=== PATIENT | male | born 1940 | race Caucasian/White ===

== ENCOUNTER → 2016-10-18 | Outpatient (CLI) | payer MEDICARE ==
--- NOTE | 2016-10-18 11:26 | PN ---
DATE OF SERVICE: 10/18/2016 A 76-year-old gentleman who has been followed in the Sleep Center for treatment of obstructive sleep apnea-hypopnea syndrome. We discussed results of the sleep study with patient in detail. Patient has more close to severe obstructive sleep apnea-hypopnea syndrome with an apnea-hypopnea index 27.4, revealed very significant oxygen desaturation of 77.3%. Presently, patient is on treatment with BiPAP. I checked his BiPAP unit. Patient is using equipment 97% of the time with 90% of the time more than 4 hours. It was 25 out of 30 nights for more than 4 hours from the screen of the machine. Patient using full-face mask, leak from the mask up to 35 L. Apnea-hypopnea index reading for the month is 8.2 with relationship to central apneas 2.1. Patient indicated that he feels better with the machine, sleeps better and does not feel sleepiness during the day as he felt before. [place] Sleepiness Scale today is 4. Patient also has nasal pillow mask but because he has difficulties to breathe through the nose, he opened mouth with it. MEDICATIONS: Lipitor. During physical exam, patient in no distress. BP 119/59, HR 64, RR 16. Weight 213, temperature 97.6. Oxygen saturation at room air 98%. HEENT: PERRLA, EOMI. LUNGS: Clear. HEART: S1, S2 with some irregularities. ABDOMEN: Soft, nontender. EXTREMITIES: No edema. IMPRESSION: 1. Moderate, close to severe obstructive sleep apnea-hypopnea syndrome, significantly improved on treatment with BiPAP. Patient demonstrated great compliance with treatment benefiting with treatment. 2. 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 3. Status post surgical treatment for nasal septum deviation. 4. History of palpitations in the past. 5. History of episodes of fainting and dizziness. PLAN: 1. Continue treatment with BiPAP every night for the whole night. 2. Patient will try to use nasal pillow mask with nasal strips and chin strap. 3. ( ) to the nostrils to prevent any irritation. 4. Sleep hygiene with bed for at least 8 hours. 5. No driving if feeling any sleepiness. 6. Followup visit in 3 months. Thank you very much for allowing me to participate in the management of your patient. Sincerely, Nelson Reid MD, PhD, FAASM. Diplomat of [place] Board of Sleep Medicine, Sleep Medicine Board by [employer] Board of Medical Specialities [employer] Board of Internal Medicine Field Artillery Radar Operator of [facility] [place]
== END | disposition home or self-care (01) ==
LOC: SLEEP 10:06
PROVIDERS: ATTEND Internal Medicine
DX: G47.33 Obstructive sleep apnea (adult) (pediatric) (principal); Z79.899 Other long term (current) drug therapy

== ENCOUNTER → 2017-01-17 | Outpatient (CLI) | payer MEDICARE ==
--- NOTE | 2017-01-17 11:14 | PN ---
DATE OF SERVICE: 01/17/2017 A 76-year-old gentleman who has been followed in the Sleep Center for treatment of obstructive sleep apnea-hypopnea syndrome. Patient continued to use his BiPAP equipment practically every night, 26 out of 30 nights and 22 out of 30 nights he is using it more than 4 hours. BiPAP pressure is 16/12 cm of water. Patient brought his BiPAP unit, I checked the machine. No snoring while he is using machine. He has a leak from his full-face mask, reading from the machine showing extremely high numbers about 50 L/min and it is also the reason why patient sometimes wakes up from sleep because of significant leak. Apnea-hypopnea index reading for the last month is 7.7. Lane Sleepiness Scale today is 1. MEDICATIONS: Lipitor. During physical exam, patient in no distress. BP 105/61, HR 60, RR 16. Height 69. Weight 209. BMI 30.8. Temp 97.7. Oxygen saturation at room air 95%. Oropharynx, extremely low position of soft palate. NECK: Supple. No JVD, Thyroid is not palpable. LUNGS: Clear to percussion and to auscultation. Good air exchange. No wheezing or rhonchi. HEART: S1, S2 regular. No murmurs, gallops, or rubs. ABDOMEN: Soft and nontender. Bowel sounds are present. No organomegaly appreciated. Touch of the front ankle area was painful during physical exam. IMPRESSION: 1. Moderate, close to severe obstructive sleep apnea-hypopnea syndrome. Patient demonstrated acceptable compliance with treatment, benefiting from treatment. 2. 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 3. Status post surgical treatment for nasal septum deviation. 4. History of episodes of palpitations in the past. 5. History of dizziness and fainting in the past. Not any recent episodes. PLAN: 1. We will work on using possibly different size of a full-face mask and possibly different style of the mask reconsidering ( ). 2. Continue to use equipment every night for the whole night. 3. Sleep hygiene with regular time in bed for at least 8 hours. 4. Prescription for all necessary supplies. Thank you very much for allowing me to participate in the management your patient. Sincerely, Nelson Reid MD, PhD, FAASM Diplomat of [place] Board of Sleep Medicine, Sleep Medicine Board by [employer] Board of Medical Specialities Italian Board of Internal Medicine Maintenance Mechanic Helper of [facility] [place]
== END | disposition home or self-care (01) ==
LOC: SLEEP 10:04
PROVIDERS: ATTEND Internal Medicine
DX: G47.33 Obstructive sleep apnea (adult) (pediatric) (principal); Z99.89 Dependence on other enabling machines and devices; Z98.890 Other specified postprocedural states

== ENCOUNTER → 2017-04-25 | Outpatient (CLI) | payer MEDICARE ==
--- NOTE | 2017-04-25 13:24 | PN ---
DATE OF SERVICE: 04/25/2017 A 76-year-old gentleman who has been followed in the Sleep Center for treatment of obstructive sleep apnea-hypopnea syndrome in close to severe range. Patient is able to use CPAP equipment practically every night. No snoring with the machine. He feels better during the day. No episodes of palpitations or dizziness as he had before. I checked his BiPAP unit. BiPAP pressure is 16/12, ramp is 30 minutes. Usage is / nights for more than 4 hours. Leak is up to 30 L/min ( ) according to the machine reading which is borderline and less than it was before. Apnea- hypopnea index 4.9 which is significantly better than during the previous visit. [place] sleepiness scale is 0. MEDICATIONS: Lipitor. During physical exam, a 76-year-old gentleman without distress. BP 109/59, HR 60, RR 16, height 5, 11, weight 205.2. Temperature 98.5, oxygen saturation at room air 96%. OROPHARYNX: Extremely low position of soft palate. NECK: Supple, No JVD. Thyroid is not palpable. LUNGS: Clear to percussion and to auscultation. Good air exchange. No wheezing or rhonchi. HEART: S1, s2 regular. No murmurs, gallops or rubs. ABDOMEN: Soft and nontender. Bowel sounds are present. No organomegaly appreciated. EXTREMITIES: No clubbing or cyanosis. TEXTILE MACHINE MAINTENANCE MECHANIC: Awake, alert, and oriented x3. Cranial nerves 2 to 7 intact. There is no fasciculation or atrophy noted. No focal deficits observed. IMPRESSION: 1. Moderate close to severe obstructive sleep apnea-hypopnea syndrome, mostly on control with BiPAP at the pressure of 16/12 cm of water. Patient demonstrates acceptable compliance with treatment. Clinical Improvements, no episode of palpitation or dizziness during the day. No sleepiness during the day while on treatment with CPAP. 2. Status post surgical treatment for nasal septum deviation. 3. Some periodic limb movements have been documented during diagnostic sleep study. 4. History of palpitation in the past. 5. History of dizziness episodes in the past. PLAN: 1. Continue to use BiPAP equipment every night for the whole night. 2. Watching weight. 3. Sleep hygiene with regular time in bed for at least 8 hours. 4. No driving if feeling sleepiness. 5. Prescription for all necessary CPAP supplies. 6. Follow up visit in 10 months or earlier if patient has any problems. Thank you very much for allowing me to participate in the management of your patient. Sincerely, Nelson Reid MD, PhD, FAASM. Diplomat of [place] Board of Sleep Medicine, Sleep Medicine Board by [employer] Board of Medical Specialties [employer] of Internal Medicine Patient Navigator of [facility] [place] [facility]
== END ==
LOC: SLEEP 10:01
PROVIDERS: ATTEND Internal Medicine
DX: G47.33 Obstructive sleep apnea (adult) (pediatric) (principal); G47.61 Periodic limb movement disorder; Z98.890 Other specified postprocedural states; Z79.899 Other long term (current) drug therapy

== ENCOUNTER → 2018-01-23 | Outpatient (CLI) | payer MEDICARE ==
--- NOTE | 2018-01-23 11:53 | SFUN ---
SLEEP CENTER FOLLOW UP NOTE DATE OF SERVICE: 01/23/2018 This 77-year-old gentleman has been followed in sleep center for treatment of obstructive sleep apnea-hypopnea syndrome. The patient continued to use his BiPAP equipment practically every night. Pressure in the machine is a 16/12 cm of water. I checked BiPAP unit. Patient using full-face mask, Tanika . Sometimes he feels dryness in his mouth, although this is a full-face mask. I checked his BiPAP unit. It showed significant leak up to 71 L/minute for the last month, but for the last night no significant leak and patient changed his mask to the new one just last night. Apnea-hypopnea index reading for the last month only 5.6, which is in normal range. [place] Sleepiness Scale today is 1. The patient was diagnosed with atrial fibrillation several months ago. MEDICATIONS: Metoprolol, Coumadin, Lipitor. PHYSICAL EXAM: During physical exam, patient in no distress. VITAL SIGNS: BP 101/59, HR 52, RR 16, height 5 feet 9-1/2 inches, weight 213.4, BMI 31.0, temperature 97.8, oxygen saturation room air 96%. HEENT: PERRLA, EOMI. Oropharynx extremely low position of soft palate. NECK: Supple, no JVD. Thyroid is not palpable. LUNGS: Clear to percussion and to auscultation. Good air exchange. No wheezing or rhonchi. HEART: S1, S2 regular. No murmurs, gallops, or rubs. ABDOMEN: Obese. EXTREMITIES: No clubbing or cyanosis. RN TRAUMA: Awake, alert, and oriented X3. Cranial nerves 2 to 7 intact. There is no fasciculation or atrophy. noted. No focal deficits observed. IMPRESSION: 1. Obstructive sleep apnea-hypopnea syndrome on control with BiPAP at the pressure of 16/12 cm of water. Patient demonstrated good compliance with treatment benefitting from treatment. 2. Mild obesity, body mass index 31.0. 3. The patient was diagnosed with atrial fibrillation several months ago. Regular heartbeat by auscultation today. 4. Hyperlipidemia. 5. History of nasal septum deviation. PLAN: 1. Patient will continue to use BiPAP equipment every night for the whole night. 2. Losing weight. 3. I will increase humidity slightly from 5 to 6. 4. No driving if feeling sleepiness. Thank you very much for allowing me to participate in management of your patient. Sincerely, Nelson Reid MD, PhD, FAASM Diplomat of Gu[place] Board of Medical Specialties Guamanian Board of Internal Medicine Human Anatomy Teacher of [facility] [place] WAQAS / PALAK: [id number] /
== END | disposition home or self-care (01) ==
LOC: SLEEP 10:00
PROVIDERS: ATTEND Internal Medicine
DX: G47.33 Obstructive sleep apnea (adult) (pediatric) (principal); E66.9 Obesity, unspecified; I48.91 Unspecified atrial fibrillation; E78.5 Hyperlipidemia, unspecified; Z87.09 Personal history of other diseases of the respiratory system; Z68.31 Body mass index [BMI] 31.0-31.9, adult; Z79.01 Long term (current) use of anticoagulants; Z79.899 Other long term (current) drug therapy; Z99.89 Dependence on other enabling machines and devices

== ENCOUNTER → 2019-01-15 | Outpatient (CLI) | payer MEDICARE ==
--- NOTE | 2019-01-15 11:31 | SFUN ---
SLEEP CENTER FOLLOW UP NOTE DATE OF SERVICE: 01/15/2019 A 78-year-old gentleman who has been followed in the Sleep Center for treatment of obstructive sleep apnea-hypopnea syndrome. Patient continued to use his BiPAP equipment every night. Does not feel significant leak from the mask, but feels that his mouth is dry. [place] Sleepiness Scale is 4. During the previous visit, patient had significant leak from the mask 71 L/minute. I checked his BiPAP unit today, pressure is 16/12 cm of water. Usage is 27/30 nights and 25/30 nights more than 4 hours, average usage is 7.5 hours per night, which is great. Leak is only 19 L/minute which is totally acceptable. Apnea-hypopnea index for the last month 4.7, for the last night only 2.6, which is also totally normal. MEDICATIONS: Metoprolol, Coumadin, Lipitor. PHYSICAL EXAM: Patient in no distress. BP 104/64, HR 54, RR 18, height 5 foot and 9 inches, weight 218.8 pounds, body mass index 32.3. Patient increased his weight of 5 pounds. Temperature 98.2, oxygen saturation on room air 96%. OROPHARYNX: Extremely low soft palate. Neck Supple, no JVD. Thyroid is not palpable. LUNGS Clear to percussion and to auscultation. Good air exchange. No wheezing or rhonchi. HEART S1, S2 regular. No murmurs, gallops, or rubs. ABDOMEN Soft and nontender. Bowel sounds are present. No organomegaly appreciated. EXTREMITIES No clubbing or cyanosis. SOLDER CREAM MAKER Awake, alert, and oriented X3. Cranial nerves 2 to 7 intact. There is no fasciculation or atrophy. noted. No focal deficits observed. IMPRESSION: 1. Obstructive sleep apnea-hypopnea syndrome. Patient demonstrated great compliance. Normal aspiration, normal BiPAP benefitting from treatment. 2. Mild obesity. 3. History of atrial fibrillation, irregular heartbeats by auscultation today. 4. Hyperlipidemia. 5. History of nasal septum deviation. PLAN: 1. Patient will continue to use BiPAP equipment every night for the whole night patient. 2. I will teach patient how to adjust humidity in the machine to be sure that he does not have any dryness in his mouth. 3. Watching and losing weight. 4. Sleep hygiene with regular time in bed for at least 8 hours. 5. No driving if feeling sleepiness. 6. Will maintain all necessary prescription for all BiPAP supplies including mask, tube, filters. Thank you very much for allowing me to participate in the management of your patient. Sincerely, Nelson Reid MD, PhD, FAASM Diplomat of Faroese Board of Medical Specialties Faroese Board of Internal Medicine Weed Sprayer of [facility] [place] MMODL / AMERICON: [id number] /
== END | disposition home or self-care (01) ==
LOC: SLEEP 10:02
PROVIDERS: ATTEND Internal Medicine
DX: G47.33 Obstructive sleep apnea (adult) (pediatric) (principal); E66.9 Obesity, unspecified; I48.91 Unspecified atrial fibrillation; E78.5 Hyperlipidemia, unspecified; Z79.01 Long term (current) use of anticoagulants; Z79.899 Other long term (current) drug therapy; Z87.09 Personal history of other diseases of the respiratory system; Z99.89 Dependence on other enabling machines and devices; Z68.32 Body mass index [BMI] 32.0-32.9, adult

== ENCOUNTER → 2019-10-02 | Outpatient (CLI) | payer MEDICARE ==
--- NOTE | 2019-10-02 17:32 | CT ---
EXAMINATION TYPE: CT brain wo con DATE OF EXAM: 10/02/2019 COMPARISON: None INDICATION: Mild cognitive impairment DLP: 1047.1 mGycm, Automated exposure control for dose reduction was used. CONTRAST: None CT of the brain is performed utilizing 3 mm thick sections through the posterior fossa and 3 mm thick sections through the remaining calvarium. Study is performed within 24 hours of arrival to the hosp [facility]. No abnormal hyperdensity is present to suggest an acute intracranial hemorrhage. No mass lesion is evident. No acute infarcts are evident. Ventricles and sulci are appropriate for the patient age. Mild mucosal thickening is present through ethmoid air cells. Remaining paranasal sinuses and mastoid air cells are clear. IMPRESSIONS: 1. No acute intracranial process.
== END | disposition home or self-care (01) ==
LOC: RADCTMAIN 10:32
PROVIDERS: ATTEND Internal Medicine
DX: G31.84 Mild cognitive impairment of uncertain or unknown etiology (principal)
CPT/HCPCS: 70450

== ENCOUNTER → 2019-10-28 | Outpatient (CLI) | payer MEDICARE ==
--- NOTE | 2019-10-28 13:24 | XR ---
EXAMINATION TYPE: XR Hip Complete RT DATE OF EXAM: 10/28/2019 COMPARISON: NONE HISTORY: pain TECHNIQUE: 2 views submitted FINDINGS: There is no evidence of erosive change or acute fracture. Probability of the hips with hypertrophic change of the acetabulum. Correlate for sacroiliitis. IMPRESSION: 1. 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 Correlate for femoral acetabular i mpingement.
== END | disposition home or self-care (01) ==
LOC: RADXRMAIN 12:55
PROVIDERS: ATTEND Internal Medicine
DX: M12.851 Other specific arthropathies, not elsewhere classified, right hip (principal)
CPT/HCPCS: 73502

== ENCOUNTER → 2020-02-29 | Outpatient (CLI) | payer MEDICARE ==
--- NOTE | 2020-02-29 08:05 | US ---
EXAMINATION TYPE: US duplex aorta DATE OF EXAM: 02/29/2020 COMPARISON: NONE CLINICAL HISTORY: 79-year-old male I79.0 Aneurysm of aorta in diseases classified els. TECHNIQUE: Multiple sonographic images of the abdominal aorta are obtained. FINDINGS: EXAM MEASUREMENTS: Abdominal Aorta: Proximal: 2.4cm Mid: 1.8cm Distal: 1.5cm Bifurcation: Right: 1.0cm Left: 0.9cm No ultrasound evidence of AAA. IMPRESSION: No sonographic evidence for AAA.
== END | disposition home or self-care (01) ==
LOC: RADUSWWP 07:19
PROVIDERS: ATTEND Internal Medicine
DX: I79.0 Aneurysm of aorta in diseases classified elsewhere (principal)
CPT/HCPCS: 93979

== ENCOUNTER → 2020-07-14 | Outpatient (CLI) | payer MEDICARE ==
--- NOTE | 2020-07-14 16:41 | SFUN ---
SLEEP CENTER FOLLOW UP NOTE DATE OF SERVICE: 07/14/2020 A 79-year-old gentleman who has been followed in the Sleep Center for treatment of obstructive sleep apnea-hypopnea syndrome. The patient continues to use his CPAP equipment every night for the whole night, sometimes mask moving out to the site during the sleep. He may experience dryness in his mouth. [place] Sleepiness Scale today 9. I checked his BiPAP unit, pressure is 16/12 cm of water. Usage is 20/30 nights. Leak is 53 L/minute which is high, but at the same time average apnea-hypopnea index 4.9, which is acceptable. Humidity in the level of 2. MEDICATIONS: The patient did not bring the list of his medications and does not know the dosage. Metoprolol, Coumadin, Lipitor, metformin. PHYSICAL EXAM: Patient in no distress, BP 99/64, HR 62, RR 15, height 5 foot 9-1/4 inches, weight 197 pounds, BMI 28.9, temperature 97.9, oxygen saturation at room air 98%. OROPHARYNX: Extremely low position of soft palate. Mallampati 4. NECK: Supple, no JVD. Thyroid is not palpable. LUNGS: Clear to percussion and to auscultation. Good air exchange. No wheezing or rhonchi. HEART: S1, S2 regular. No murmurs, gallops, or rubs. ABDOMEN: Soft and nontender. Bowel sounds are present. No organomegaly appreciated. EXTREMITIES: No clubbing or cyanosis. SSIS DEVELOPER: Awake, alert, and oriented X3. Cranial nerves 2 to 7 intact. There is no fasciculation or atrophy. noted. No focal deficits observed. IMPRESSION: 1. Obstructive sleep apnea-hypopnea syndrome. Patient demonstrated borderline compliance with treatment, benefitting from treatment. 2. History of atrial fibrillation. 3. Hyperlipidemia. 4. Nasal septum deviation. PLAN: 1. Prescription for all necessary supplies including a full-face Simpliex medium-size mask, heated tube, filters. 2. Adjust humidity up to level of 4. 3. Prescription for chin strap. 4. Patient will continue to use PAP equipment every night for the whole night. 5. Sleep hygiene with regular time in bed for at least 7-1/2 to 8 hours. 6. Precautions related to driving. No driving if feeling sleepiness. 7. I will maintain all necessary prescription for PAP supplies including mask, tube, filters. 8. Watching weight. 9. No driving if feeling sleepiness. 10.Follow-up visit in 6 months or earlier if patient has any problems. Thank you very much for allowing me to participate in the management of your patient. Sincerely, Nelson Reid MD, PhD, FAASM Diplomat of Azerbaijani Board of Medical Specialties Azerbaij[place] Board of Internal Medicine Cracker Off of [facility] [place] MMODL / AMERICON: [id number] /
== END | disposition home or self-care (01) ==
LOC: SLEEP 11:17
PROVIDERS: ATTEND Internal Medicine
DX: G47.33 Obstructive sleep apnea (adult) (pediatric) (principal); E78.5 Hyperlipidemia, unspecified; J34.2 Deviated nasal septum; Z86.79 Personal history of other diseases of the circulatory system

== ENCOUNTER → 2020-08-17 | Outpatient (CLI) | payer MEDICARE ==
--- NOTE | 2020-08-17 17:14 | FL ---
EXAMINATION TYPE: FL barium enema DATE OF EXAM: 08/17/2020 COMPARISON: NONE Total fluoroscopy time: 1 minute 39 seconds. Total images: 60. HISTORY: 79-year-old male with positive fecal occult blood test. Colonoscopy on 03/23/2020 was limited by poor prep and on 06/08/2020 was limited by significant tortuosity. The right side of the colon was not adequately evaluated. K92.1, blood in stool. TECHNIQUE: A single contrast contrast barium enema study is performed. FINDINGS: Laundry Room Attendant view of the abdomen shows some residual stool within the left side of the colon. Nonobstructive bowel gas pattern. There is prominent tortuosity of the sigmoid colon and additional prominent tortuosity of the proxima l third transverse colon and ascending colon. This results in extensive bowel overlap limiting assessment. Assessment is further limited by reflux into small bowel loops across the ileocecal valve. No obvious sandra annular narrowing, obstructing or constricting lesion is identified. No significant diverticular disease is noted. IMPRESSION: 1. The right side of the colon remains limited due to prominent tortuosity and redundancy resulting i n excessive bowel overlap. Further limitation from reflux into small bowel loops across the ileocecal valve resulting in further overlap of opacified bowel. 2. No obvious suspicious obstructing or constricting lesion is identified. 3. Additional mild redundancy of the sigmoid colon.
== END | disposition home or self-care (01) ==
LOC: RADFLMAIN 08:50
PROVIDERS: ATTEND Surgery
DX: K63.89 Other specified diseases of intestine (principal); K92.1 Melena
CPT/HCPCS: 74270

== ENCOUNTER → 2020-09-06 | Outpatient (CLI) | payer MEDICARE ==
[2020-09-06 08:01] LABS: Basophils # (A) 0.1 k/uL (0-0.2); Basophils % (A) 1 %; Eosinophils # (A) 0.6 k/uL (0-0.7); Eosinophils % (A) 9 %; HCT 39.3 % (39.0-53.0); HGB 12.9 gm/dL (13.0-17.5); Lymphocytes # (A) 1.7 k/uL (1.0-4.8); Lymphocytes % (A) 26 %; MCH 29.2 pg (25.0-35.0); MCHC 32.9 g/dL (31.0-37.0); MCV 88.8 fL (80.0-100.0); Mean Platelet Volume 6.9; Monocytes # (A) 0.3 k/uL (0-1.0); Monocytes % (A) 5 %; Neutrophils # (A) 3.5 k/uL (1.3-7.7); Neutrophils % (A) 56 %; Platelet Count 209 k/uL (150-450); RBC 4.43 m/uL (4.30-5.90); RDW 13.2 % (11.5-15.5); WBC 6.3 k/uL (3.8-10.6)
[2020-09-06 11:25] LABS: African American GFR (CKD) 99.2 (60.0-200.0); Albumin 4.2 g/dL (3.80-4.90); Albumin/Globulin Ratio 2.21 (1.60-3.17); Anion Gap 5.7 mmol/L (4.00-12.00); BUN/Creat Ratio 16.25 Ratio (12.00-20.00); Calcium 9.2 mg/dL (8.7-10.3); Carbon Dioxide 30.3 mmol/L (21.6-31.8); Chol/HDL Ratio 3.39; Globulin 1.9 g/dL (1.6-3.3); Non-African American GFR(CKD) 85.6 (60.0-200.0); Potassium 4.2 mmol/L (3.5-5.5); Total Bilirubin 0.6 mg/dL (0.2-1.2); Total Protein 6.1 g/dL (6.2-8.2)
[2020-09-06 14:48] LABS: Hemoglobin A1C 5.9 % (4.0-6.0)
== END | disposition home or self-care (01) ==
LOC: LABWHC1 07:24
PROVIDERS: ATTEND Internal Medicine
DX: E78.5 Hyperlipidemia, unspecified (principal); I48.91 Unspecified atrial fibrillation; R73.03 Prediabetes
CPT/HCPCS: 36415; 80053; 80061; 82550; 83036; 85025

== ENCOUNTER → 2021-01-12 | Outpatient (CLI) | payer MEDICARE, OTHER ==
--- NOTE | 2021-01-12 15:58 | SFUN ---
SLEEP CENTER FOLLOW UP NOTE DATE OF SERVICE: 01/12/2021. This 80-year-old gentleman has been followed in Sleep Center for treatment of obstructive sleep apnea-hypopnea syndrome. Patient continued to use his BiPAP equipment every night for the whole night. According to his , he does not snore. He sleeps well with the machine. [place] Sleepiness Scale was 2. He receives all his supplies in time and changing filters in his machine according to him. I checked BiPAP unit. BiPAP pressure of 16/12 cm of water, usage 29 out of 30 nights for more than 4 hours, average usage 8.5 hours per night. Leak was 20 L/minute, which is borderline. Apnea-hypopnea index 6.8, which includes central apnea-hypopnea index 1.8. MEDICATIONS: Warfarin 2 mg as directed, metoprolol 25 mg once a day, tamsulosin 0.4 mg once a day, atorvastatin 20 mg once a day, metformin 500 mg twice a day. PHYSICAL EXAMINATION: GENERAL: Patient in no distress. VITAL SIGNS: BP 98/56, HR 67, RR 12, height 5 feet 10 inches, weight 200.0, body mass index 28.6, temperature 97.3, oxygen saturation at room air 97%. HEENT: PERRLA, EOMI. Oropharynx extremely low position of soft palate. Mallampati 4. NECK: Supple, no JVD. Thyroid is not palpable. LUNGS: Clear to percussion and to auscultation. Good air exchange. No wheezing or rhonchi. HEART: S1, S2 regular. No murmurs, gallops, or rubs. ABDOMEN: Soft and nontender. Bowel sounds are present. No organomegaly appreciated. EXTREMITIES: No clubbing or cyanosis. FILEMAKER DEVELOPER: Awake, alert, and oriented X3. Cranial nerves 2 to 7 intact. There is no fasciculation or atrophy. noted. No focal deficits observed. IMPRESSION: 1. Obstructive sleep apnea-hypopnea syndrome with some central events. The patient demonstrated 100% compliance with treatment, benefitting from treatment. Apnea- hypopnea index slightly increased to 6.8, comparing with previous visit when it was 4.9. 2. History of atrial fibrillation. 3. Hyperlipidemia. 4. History of nasal septum deviation. PLAN: 1. Patient will continue to use PAP equipment every night for the whole night. 2. Sleep hygiene with regular time in bed for at least 7-1/2 to 8 hours. 3. Precautions related to driving. No driving if feeling sleepiness. 4. I will maintain all necessary prescription for PAP supplies including mask, tube, filters. 5. Watching weight. 6. Follow-up visit in 6 months or earlier if patient has any problems. Thank you very much for allowing me to participate in management of your patient. Sincerely, Nelson Reid MD, PhD, FAASM Diplomat of [place] Board of Medical Specialties [place] Board of Internal Medicine Casino Cashier Manager of [facility] [place] MMODL / IJN: [id number] /
== END ==
LOC: SLEEP 11:31
PROVIDERS: ATTEND Internal Medicine
DX: G47.33 Obstructive sleep apnea (adult) (pediatric) (principal); I48.91 Unspecified atrial fibrillation; E78.5 Hyperlipidemia, unspecified; J34.2 Deviated nasal septum

== ENCOUNTER → 2021-01-20 | Outpatient (CLI) | payer MEDICARE, OTHER ==
[2021-01-20 11:44] LABS: Basophils # (A) 0.07 X 10*3/uL (0.00-0.10); Basophils % (A) 1.2 %; Eosinophils # (A) 0.42 X 10*3/uL (0.04-0.35); Eosinophils % (A) 7.3 %; HCT 38.8 % (39.6-50.0); HGB 12.1 g/dL (13.0-17.0); Lymphocytes # (A) 1.63 X 10*3/uL (0.90-5.00); Lymphocytes % (A) 28.3 %; MCH 28.1 pg (27.0-32.0); MCHC 31.2 g/dL (32.0-37.0); Mean Platelet Volume 10.4 fL (9.5-12.2); Monocytes # (A) 0.53 X 10*3/uL (0.20-1.00); Monocytes % (A) 9.2 %; Neutrophils # (A) 3.09 X 10*3/uL (1.80-7.70); Neutrophils % (A) 53.8 %; Platelet Count 230 X 10*3/uL (140-440); RBC 4.31 X 10*6/uL (4.40-5.60); WBC 5.75 X 10*3/uL (4.50-10.00)
[2021-01-20 12:04] LABS: African American GFR (CKD) 104.8 (60.0-200.0); Albumin/Globulin Ratio 2.22 (1.60-3.17); Anion Gap 7.9 mmol/L (4.00-12.00); Calcium 8.8 mg/dL (8.7-10.3); Carbon Dioxide 29.1 mmol/L (21.6-31.8); Globulin 1.8 g/dL (1.6-3.3); Non-African American GFR(CKD) 90.4 (60.0-200.0); Potassium 4.3 mmol/L (3.5-5.5); Total Bilirubin 0.5 mg/dL (0.2-1.2); Total Protein 5.8 g/dL (6.2-8.2)
== END | disposition home or self-care (01) ==
LOC: LABWHC1 07:16
PROVIDERS: ATTEND Internal Medicine
DX: N40.0 Benign prostatic hyperplasia without lower urinary tract symptoms (principal); E78.5 Hyperlipidemia, unspecified; I48.20 Chronic atrial fibrillation, unspecified; E11.9 Type 2 diabetes mellitus without complications
CPT/HCPCS: 36415; 80053; 84153; 84443; 85025

== ENCOUNTER → 2021-06-07 | Outpatient (CLI) | payer MEDICARE, OTHER ==
--- NOTE | 2021-06-07 21:07 | SFUN ---
SLEEP CENTER FOLLOW UP NOTE DATE OF SERVICE: 06/07/2021 This 80-year-old gentleman has been followed in Sleep Center for treatment of obstructive sleep apnea-hypopnea syndrome. The patient successfully continues to use his CPAP equipment every night for the whole night. [place] Sleepiness Scale today is only 1, which is totally normal. I checked his BiPAP unit. Pressure is 16/12 cm of water. Usage is 30/30 nights and 29/30 nights for more than 4 hours, average 7.7 hours per night. Leak is 25 L/minute, which is borderline. Apnea-hypopnea index is slightly increased at 7.2. One leg of the patient's cover for the air filter is broken. MEDICATIONS: 1. Metformin 500 mg once a day. 2. Tamsulosin 0.4 mg once a day. 3. Metoprolol 25 mg once a day. 4. Atorvastatin 20 mg once a day. 5. Warfarin 2 mg once a day. PHYSICAL EXAMINATION: GENERAL: Pleasant patient in no distress. VITAL SIGNS: BP 104/65, HR 72, RR 15, height 5 feet 10 inches, weight 192.2, temperature 97.2, oxygen saturation at room air 96%. Body mass index 27.5. HEENT: PERRLA, EOMI, evaluation of oropharynx showed tongue protrudes midline. Extremely low position of soft palate; Mallampati IV. NECK: Supple, no JVD. Thyroid is not palpable. LUNGS: Clear to percussion and to auscultation. Good air exchange. No wheezing or rhonchi. HEART: S1, S2 regular. No murmurs, gallops, or rubs. ABDOMEN: Soft and nontender. Bowel sounds are present. No organomegaly appreciated. EXTREMITIES: No clubbing or cyanosis. LEAD PERSON: Awake, alert, and oriented X3. Cranial nerves 2 to 7 intact. There is no fasciculation or atrophy. noted. No focal deficits observed. IMPRESSION: 1. Obstructive sleep apnea-hypopnea syndrome with some central events. The patient demonstrated practically 100% compliance with treatment, benefitting from treatment. Apnea-hypopnea index is slightly increased at 7.2. 2. History of atrial fibrillation. 3. Hyperlipidemia. 4. History of nasal septum deviation. PLAN: 1. Prescription to replace air filter cover. 2. I changed regimen in BiPAP unit to automatic with maximal inspiratory pressure 18 and minimal expiratory pressure 6. 3. Patient will continue to use PAP equipment every night for the whole night. 4. Sleep hygiene with regular time in bed for at least 7-1/2 to 8 hours. 5. Precautions related to driving. No driving if feeling sleepiness. 6. I will maintain all necessary prescription for PAP supplies including mask, tube, filters. 7. Watching weight. 8. Follow-up visit in 6 months or earlier if patient has any problems. Thank you very much for allowing me to participate in the management of your patient. Sincerely, Nelson Reid MD, PhD, FAASM Diplomat of [place] [employer] Sleep Medicine Board of [place] [employer] Web Developer of [facility] [place] [employer] / [employer]: [id number] /
== END ==
LOC: SLEEP 13:02
PROVIDERS: ATTEND Internal Medicine
DX: G47.33 Obstructive sleep apnea (adult) (pediatric) (principal); E78.5 Hyperlipidemia, unspecified; J34.2 Deviated nasal septum; I48.91 Unspecified atrial fibrillation; Z99.89 Dependence on other enabling machines and devices; Z79.01 Long term (current) use of anticoagulants

== ENCOUNTER → 2021-06-27 | Outpatient (CLI) | payer MEDICARE, OTHER ==
--- NOTE | 2021-06-27 12:56 | XR ---
EXAMINATION TYPE: XR chest 2V DATE OF EXAM: 06/27/2021 COMPARISON: 05/15/2016 TECHNIQUE: PA and lateral views submitted. HISTORY: Back pain FINDINGS: The lungs are clear and there is no pneumothorax, pleural effusion, or focal pneumonia. Heart is pr ominent there is hyperinflation. Interstitial pattern with cardiomegaly. Arthropathy of the shoulders . No consolidation. Hypertrophic and degenerative change of the spine. IMPRESSION: 1. Cardiomegaly correlate for interstitial pneumonitis..
== END | disposition home or self-care (01) ==
LOC: RADXRMAIN 12:13
PROVIDERS: ATTEND Internal Medicine
DX: J98.4 Other disorders of lung (principal); I51.7 Cardiomegaly
CPT/HCPCS: 71046

== ENCOUNTER → 2021-06-30 | Outpatient (CLI) | payer MEDICARE ==
[2021-07-01 07:17] LABS: Anti-DNA, DS unit <1.0 IU/mL; Centromere Antibody <0.2 AI; Centromere Antibody Interp NEGATIVE (NEGATIVE); DNA Double-Stranded NEGATIVE (NEGATIVE); Scleroderma SC-70 Ab <0.2 AI
[2021-07-01 19:37] LABS: Hepatitis C IgG Antibody Nonreactive (Nonreactive)
[2021-07-01 19:38] LABS: Hepatitis A Antibody IgM Nonreactive (Nonreactive); Hepatitis B Core IgM Nonreactive (Nonreactive); Hepatitis B Surface Antigen Non-Reactive (Nonreactive)
== END | disposition home or self-care (01) ==
LOC: LABWHC1 11:34
PROVIDERS: ATTEND Internal Medicine
DX: R94.5 Abnormal results of liver function studies (principal)
CPT/HCPCS: 36415; 80074; 82977; 83516; 86038; 86225; 86235

== ENCOUNTER → 2021-07-06 | Outpatient (CLI) | payer MEDICARE ==
--- NOTE | 2021-07-06 11:01 | CT ---
EXAMINATION TYPE: CT chest wo/w con DATE OF EXAM: 07/06/2021 COMPARISON: None HISTORY: CHF CT DLP: 664.2 mGycm Automated exposure control for dose reduction was used. CONTRAST: CT scan of the chest is performed without and with IV Contrast, patient injected with 100 mL of Isovu e 300. FINDINGS: LUNGS: Suspicious 2.3 x 2.0 cm pleural-based mass left upper lobe. I cannot exclude malignancy. Consi adri PET/CT or tissue diagnosis. Other also couple of small sub-3 mm pulmonary nodules left lower lobe . The right lung is clear. Biapical scarring. Mild hyperinflation. No evidence for congestive failure . MEDIASTINUM: There are no greater than 1 cm hilar or mediastinal lymph nodes. No pericardial effusi on is seen. Thoracic aorta is of normal caliber. The heart is mildly enlarged. UPPER ABDOMEN: 1.5 cm nodule left adrenal gland. Mild thickening of the right adrenal gland. Approxim ately 5 lesions within the liver compatible with metastatic disease measuring up to 3 cm in size. The entirety of the liver is not imaged. Renal cortical cysts. OTHER: Heterogeneity of the osseous structures suspicious for metastatic disease. IMPRESSION: 1. Left upper lobe pleural-based mass is suspicious for malignancy. Correlate with PET/CT. 2. Findings compatible with metastatic disease to the liver as well as the visualized thoracic segmen ts. Left adrenal metastatic difficult to exclude.
== END | disposition home or self-care (01) ==
LOC: RADCTMAIN 09:54
PROVIDERS: ATTEND Internal Medicine
DX: I50.9 Heart failure, unspecified (principal); R91.8 Other nonspecific abnormal finding of lung field
CPT/HCPCS: 71270; Q9967

== ENCOUNTER → 2021-07-08 | Outpatient (CLI) | payer MEDICARE ==
[2021-07-08 08:56] LABS: African American GFR (CKD) >90 (>60 ml/min/1.73 sqM); Blood Urea Nitrogen 24 mg/dL (9-20); Non-African American GFR(CKD) 84 (>60 ml/min/1.73 sqM)
--- NOTE | 2021-07-08 10:41 | CT ---
EXAMINATION TYPE: CT abdomen pelvis wo/w con DATE OF EXAM: 07/08/2021 COMPARISON: None HISTORY: Abnormal weight loss CT DLP: 1852 mGycm CONTRAST: CT scan of the abdomen and pelvis is performed with Oral Contrast and without and with IV Contrast, p atient injected with 100 ml mL of Isovue 300. FINDINGS: LUNG BASES-: Possible nodule noted on the first image of the lung windows measuring 1.[address] of the chest is recommended. LIVER/GB: No calcified gallstones. Approximately 4 hepatic lesions are noted suspicious for metasta tic disease. A lesion noted within the anterior segment right hepatic lobe measures 2.6 cm. An additi onal lesion adjacent to the falciform ligament measures 2.8 cm and 1.4 cm. Peripheral lesion near the dome of the liver measures 1.6 cm. Biliary tree is of normal caliber. PANCREAS: No inflammation. No distinct mass. SPLEEN: No splenic enlargement. No lesion seen. ADRENALS: No nodule. No thickening. KIDNEYS/BLADDER: No hydronephrosis. No nephrolithiasis. No distinct renal mass. Urinary bladder g rossly unremarkable. BOWEL: Normal appendix. Small suspicious area of mural thickening is noted within adjacent lymph node or 2 involving the mid ascending colon. Direct visualization is recommended to exclude neoplasm. GENITAL ORGANS: No gross abnormality. LYMPH NODES: No greater than 1cm abdominal or pelvic lymph nodes are appreciated. AORTA: No significant abnormality. OSSEOUS STRUCTURES: Suspect bony metastatic disease. OTHER: No significant additional abnormality is seen. IMPRESSION: 1. Small suspicious area of mural thickening is noted within adjacent lymph node or 2 involving the m id ascending colon. Direct visualization is recommended to exclude neoplasm. 2. Metastatic disease to the liver. 3. Areas of abnormal bony lucency suspicious for metastatic disease to the distal thoracic spine lumb ar spine, sacrum, pelvis and proximal femora. 4. Possible nodule noted on the first image of the lung windows measuring 1.[address] of the chest is recommended.
== END | disposition home or self-care (01) ==
LOC: RADCTMAIN 07:57
PROVIDERS: ATTEND Internal Medicine
DX: C78.7 Secondary malignant neoplasm of liver and intrahepatic bile duct (principal); M89.8X0 Other specified disorders of bone, multiple sites
CPT/HCPCS: 82565; 84520; 74178; 36415; Q9967

== ENCOUNTER 2021-07-12 15:58 | Inpatient (IN) | payer MEDICARE ==
[2021-07-12] MEDS ORDERED: SODIUM CHLORIDE 0.9% 500 ML 500 ML IV STA (16:22)
--- NOTE | 2021-07-12 16:25 | ED ---
General Adult HPI - General Chief complaint: Weakness Stated complaint: Pt has cancer and his vitals are abnormal per PCP Time Seen by Provider: 07/12/21 16:07 Source: patient, family, RN notes reviewed, old records reviewed Mode of arrival: wheelchair Limitations: no limitations - History of Present Illness Initial comments: 80-year-old male presenting from the oncologist office for evaluation of hypoxia, hypotension. Patient has been recently diagnosed with metastatic CA of uncertain origin. The patient was at the office today, noted to be in the 70s blood pressure, with a very low oxygen saturation. He had CT abdomen showing metastases to the liver and bone. Unlikely primary lung cancer. His had decreased appetite, generalized weakness, weight loss and increased dyspnea over the past several weeks. - Related Data Home Medications Medication Instructions Recorded Confirmed Baclofen [Lioresal] 10 mg PO TID 07/12/21 07/12/21 Ferrous Sulfate [Feosol] 325 mg PO DAILY 07/12/21 07/12/21 Furosemide [Lasix] 40 mg PO DAILY 07/12/21 07/12/21 Metoprolol Succinate [Toprol XL] 25 mg PO DAILY 07/12/21 07/12/21 Tamsulosin [Flomax] 0.4 mg PO BID 07/12/21 07/12/21 Warfarin [Coumadin] 2 mg PO SUTUTHSA 07/12/21 07/12/21 Warfarin [Coumadin] 5 mg PO DAILY 07/12/21 07/12/21 Allergies Allergy/AdvReac Type Severity Reaction Status Date / Time No Known Allergies Allergy Verified 07/12/21 16:52 Review of Systems ROS Statement: Those systems with pertinent positive or pertinent negative responses have been documented in the HPI. ROS Other: All systems not noted in ROS Statement are negative. Past Medical History Past Medical History: Atrial Fibrillation Additional Past Medical History / Comment(s): CA, Lung, Liver and bone. History of Any Multi-Drug Resistant Organisms: None Reported Past Surgical History: No Surgical Hx Reported Past Psychological History: No Psychological Hx Reported Smoking Status: Never smoker Past Alcohol Use History: None Reported Past Drug Use History: None Reported General Exam Limitations: no limitations General appearance: alert, in distress Head exam: Present: atraumatic, normocephalic Eye exam: Present: normal appearance, PERRL ENT exam: Present: mucous membranes dry Respiratory exam: Present: respiratory distress, rhonchi, decreased breath sounds Cardiovascular Exam: Present: normal rhythm, tachycardia GI/Abdominal exam: Present: soft. Absent: distended, tenderness, guarding Extremities exam: Present: normal inspection, normal capillary refill Neurological exam: Present: alert, oriented X3, CN II-XII intact. Absent: motor sensory deficit Psychiatric exam: Present: normal affect, normal mood Skin exam: Present: warm, dry Course Vital Signs 07/12/21 16:01 Temperature 97.4 F L Pulse Rate 90 Respiratory 22 Rate Blood Pressure 86/53 O2 Sat by Pulse 90 L Oximetry EKG Findings - EKG Comments: EKG Findings:: EKG: Normal sinus rhythm, no ST segment elevation, rate of 95, IL interval 148, QRS duration 86, QTC 469 Medical Decision Making - Medical Decision Making 72-year-old male with recent diagnosis of lung mass, and concern for metastatic disease presenting with generalized weakness, fatigue, and increased dyspnea. He is a poor appetite. He was sent in by his oncologist. I did perform chest x-ray which was negative for focal pneumonia. He has CTA negative for pulmonary embolism but is showing a lung mass with metastatic disease. He has a leukocytosis his hemoglobin is 9.7. He has a supratherapeutic INR at 7.2. He is given vitamin K in the emergency department. Did have a mild lactic acidosis of 2.9. He started on IV hydration and empiric IV antibiotics. I did discuss case with Dr. Garcia who will admit both pulmonology and oncology on consult. - Lab Data Result diagrams: 07/12/21 16:29 07/12/21 16:29 Lab Results 07/12/21 07/12/21 07/12/21 Range/Units 16:29 16:29 16:29 WBC 14.4 H (3.8-10.6) k/uL RBC 3.21 L (4.30-5.90) m/uL Hgb 9.7 L (13.0-17.5) gm/dL Hct 27.6 L (39.0-53.0) % MCV 86.0 (80.0-100.0) fL MCH 30.2 (25.0-35.0) pg MCHC 35.1 (31.0-37.0) g/dL RDW 17.4 H (11.5-15.5) % Plt Count 325 (150-450) k/uL MPV 7.4 Neutrophils % (Manual) 85 % Band Neuts % (Manual) 1 % Lymphocytes % (Manual) 10 % Monocytes % (Manual) 4 % Basophils % (Manual) 1 % Metamyelocytes % 1 % Neutrophils # (Manual) 12.30 H (1.3-7.7) k/uL Lymphocytes # (Manual) 1.44 (1.0-4.8) k/uL Monocytes # (Manual) 0.58 (0-1.0) k/uL Basophils # (Manual) 0.14 (0-0.2) k/uL Metamyelocytes # (Man) 0.14 H (0) k/uL Nucleated RBCs 1 H (0-0) /100 WBC Manual Slide Review Performed Polychromasia Present Poikilocytosis Slight Poikilocytosis (manual Present Anisocytosis Slight PT (9.0-12.0) sec INR (<1.2) APTT (22.0-30.0) sec Sodium 136 L (137-145) mmol/L Potassium 4.5 (3.5-5.1) mmol/L Chloride 103 (98-107) mmol/L Carbon Dioxide 21 L (22-30) mmol/L Anion Gap 12 mmol/L BUN 48 H (9-20) mg/dL Creatinine 0.97 (0.66-1.25) mg/dL Est GFR (CKD-EPI)AfAm 87 (>60 ml/min/1.73 sqM) Est GFR (CKD-EPI)NonAf 75 (>60 ml/min/1.73 sqM) Glucose 182 H (74-99) mg/dL Lactic Ac Sepsis Rflx Plasma Lactic Acid Chao 2.9 H* (0.7-2.0) mmol/L Calcium 9.2 (8.4-10.2) mg/dL Magnesium 1.9 (1.6-2.3) mg/dL Total Bilirubin 1.0 (0.2-1.3) mg/dL AST 44 (17-59) U/L ALT 20 (4-49) U/L Alkaline Phosphatase 276 H (38-126) U/L Troponin I (0.000-0.034) ng/mL NT-Pro-B Natriuret Pep pg/mL Total Protein 6.2 L (6.3-8.2) g/dL Albumin 3.6 (3.5-5.0) g/dL 07/12/21 07/12/21 07/12/21 Range/Units 16:29 16:29 16:56 WBC (3.8-10.6) k/uL RBC (4.30-5.90) m/uL Hgb (13.0-17.5) gm/dL Hct (39.0-53.0) % MCV (80.0-100.0) fL MCH (25.0-35.0) pg MCHC (31.0-37.0) g/dL RDW (11.5-15.5) % Plt Count (150-450) k/uL MPV Neutrophils % (Manual) % Band Neuts % (Manual) % Lymphocytes % (Manual) % Monocytes % (Manual) % Basophils % (Manual) % Metamyelocytes % % Neutrophils # (Manual) (1.3-7.7) k/uL Lymphocytes # (Manual) (1.0-4.8) k/uL Monocytes # (Manual) (0-1.0) k/uL Basophils # (Manual) (0-0.2) k/uL Metamyelocytes # (Man) (0) k/uL Nucleated RBCs (0-0) /100 WBC Manual Slide Review Polychromasia Poikilocytosis Poikilocytosis (manual Anisocytosis PT (9.0-12.0) sec INR (<1.2) APTT (22.0-30.0) sec Sodium (137-145) mmol/L Potassium (3.5-5.1) mmol/L Chloride (98-107) mmol/L Carbon Dioxide (22-30) mmol/L Anion Gap mmol/L BUN (9-20) mg/dL Creatinine (0.66-1.25) mg/dL Est GFR (CKD-EPI)AfAm (>60 ml/min/1.73 sqM) Est GFR (CKD-EPI)NonAf (>60 ml/min/1.73 sqM) Glucose (74-99) mg/dL Lactic Ac Sepsis Rflx Y Plasma Lactic Acid Chao (0.7-2.0) mmol/L Calcium (8.4-10.2) mg/dL Magnesium (1.6-2.3) mg/dL Total Bilirubin (0.2-1.3) mg/dL AST (17-59) U/L ALT (4-49) U/L Alkaline Phosphatase (38-126) U/L Troponin I 0.034 (0.000-0.034) ng/mL NT-Pro-B Natriuret Pep 1600 pg/mL Total Protein (6.3-8.2) g/dL Albumin (3.5-5.0) g/dL 07/12/21 Range/Units 17:40 WBC (3.8-10.6) k/uL RBC (4.30-5.90) m/uL Hgb (13.0-17.5) gm/dL Hct (39.0-53.0) % MCV (80.0-100.0) fL MCH (25.0-35.0) pg MCHC (31.0-37.0) g/dL RDW (11.5-15.5) % Plt Count (150-450) k/uL MPV Neutrophils % (Manual) % Band Neuts % (Manual) % Lymphocytes % (Manual) % Monocytes % (Manual) % Basophils % (Manual) % Metamyelocytes % % Neutrophils # (Manual) (1.3-7.7) k/uL Lymphocytes # (Manual) (1.0-4.8) k/uL Monocytes # (Manual) (0-1.0) k/uL Basophils # (Manual) (0-0.2) k/uL Metamyelocytes # (Man) (0) k/uL Nucleated RBCs (0-0) /100 WBC Manual Slide Review Polychromasia Poikilocytosis Poikilocytosis (manual Anisocytosis PT 70.3 H (9.0-12.0) sec INR 7.2 H* (<1.2) APTT 46.3 H (22.0-30.0) sec Sodium (137-145) mmol/L Potassium (3.5-5.1) mmol/L Chloride (98-107) mmol/L Carbon Dioxide (22-30) mmol/L Anion Gap mmol/L BUN (9-20) mg/dL Creatinine (0.66-1.25) mg/dL Est GFR (CKD-EPI)AfAm (>60 ml/min/1.73 sqM) Est GFR (CKD-EPI)NonAf (>60 ml/min/1.73 sqM) Glucose (74-99) mg/dL Lactic Ac Sepsis Rflx Plasma Lactic Acid Chao (0.7-2.0) mmol/L Calcium (8.4-10.2) mg/dL Magnesium (1.6-2.3) mg/dL Total Bilirubin (0.2-1.3) mg/dL AST (17-59) U/L ALT (4-49) U/L Alkaline Phosphatase (38-126) U/L Troponin I (0.000-0.034) ng/mL NT-Pro-B Natriuret Pep pg/mL Total Protein (6.3-8.2) g/dL Albumin (3.5-5.0) g/dL Critical Care Time Critical Care Time: Yes Total Critical Care Time: 35 Disposition Clinical Impression: Dehydration, Leukocytosis, Supratherapeutic INR, Lung mass Disposition: ADMITTED IP TO THIS [facility] Condition: Serious Is patient prescribed a controlled substance at d/c from ED?: No Referrals: Dominique Garcia MD [Primary Care Provider] - 1-2 days Decision to Admit Reason: Admit from EC Decision Date: 07/12/21 Decision Time: 19:01
[2021-07-12 16:54] LABS: Albumin 3.6 g/dL (3.5-5.0); Calcium 9.2 mg/dL (8.4-10.2); Magnesium 1.9 mg/dL (1.6-2.3); Potassium 4.5 mmol/L (3.5-5.1); Total Protein 6.2 g/dL (6.3-8.2)
--- NOTE | 2021-07-12 16:54 | XR ---
EXAMINATION TYPE: XR chest 1V portable DATE OF EXAM: 07/12/2021 COMPARISON: 06/27/2021 HISTORY: Difficulty breathing TECHNIQUE: Single view FINDINGS: There is no heart failure nor confluent pneumonic infiltrate. There are chest leads. There are no hilar masses. Costophrenic angles are clear. Heart size is normal. IMPRESSION: No active cardiopulmonary disease. No change.
[2021-07-12 17:13] LABS: Anisocytosis Slight; HCT 27.6 % (39.0-53.0); HGB 9.7 gm/dL (13.0-17.5); MCH 30.2 pg (25.0-35.0); MCHC 35.1 g/dL (31.0-37.0); Mean Platelet Volume 7.4; Platelet Count 325 k/uL (150-450); Poikilocytosis Slight; RBC 3.21 m/uL (4.30-5.90); RDW 17.4 % (11.5-15.5)
--- NOTE | 2021-07-12 17:43 | CT ---
EXAMINATION TYPE: CT angio chest DATE OF EXAM: 07/12/2021 COMPARISON: None HISTORY: difficulty breathing, lung cancer CT DLP: 340.6 mGycm Automated exposure control for dose reduction was used. CONTRAST: Performed with IV Contrast, patient injected with 100 mL of Isovue 370. There are 3-D post processed images. There is 2.5 cm irregular infiltrate in the left upper lobe adjacent to the chest wall and near the m ajor fissure. Margins are somewhat spiculated. There is no pleural effusion. Heart is top normal in size. There is no pericardial effusion. There is no mediastinal adenopathy. There is contrast opacification of the pulmonary arteries. There are no filling defects. Thoracic aorta is intact. There is no evidence of aneurysm or dissection. Asc ending aorta measures 3.9 cm. There are osteosclerotic and osteolytic changes in the thoracic spine. There is 1.5 cm nodular area involving left adrenal gland. There are hypodensities in the liver sugge stive of metastatic disease. IMPRESSION: No evidence of pulmonary embolism. Left upper lobe mass. (liver hypodensities and bony changes in the spine consistent with metastatic disease.
[2021-07-12 17:56] LABS: Band Neutrophils % 1 %; Basophils # (M) 0.14 k/uL (0-0.2); Lymphocytes # (M) 1.44 k/uL (1.0-4.8); Metamyelocytes # (M) 0.14 k/uL (0); Metamyelocytes % 1 %; Monocytes # (M) 0.58 k/uL (0-1.0); Neutrophils % (M) 85 %; Nucleated Red Blood Cells 1 /100 WBC (0-0); Poikilocytosis (M) Present; Polychromasia Present; Total Cells Counted 200; WBC 14.4 k/uL (3.8-10.6)
[2021-07-12 18:03] LABS: Partial Thromboplastin Time 46.3 sec (22.0-30.0); Prothrombin Time 70.3 sec (9.0-12.0)
[2021-07-12 18:37] LABS: INR 7.2 (<1.2)
[2021-07-12] MEDS ORDERED: PANTOPRAZOLE 40 MG/10 ML VIAL IVP STA (18:55)
[2021-07-12] MEDS ORDERED: CEFEPIME 2 GM in SODIUM CHLORIDE 0.9% 100 ML IVPB STA (18:55)
[2021-07-12] MEDS ORDERED: ACETAMINOPHEN TAB 325 MG TAB PO PRN (18:57)
[2021-07-12] MEDS ORDERED: NALOXONE 0.4 MG/ML 1 ML VIAL IV PRN (18:57)
[2021-07-12] MEDS ORDERED: PHYTONADIONE 5 MG in SODIUM CHLORIDE 0.9% 50 ML IVPB STA (18:59)
[2021-07-12] MEDS: PANTOPRAZOLE 40 MG/10 ML VIAL IVP SCH (21:16)
[2021-07-12] MEDS: SODIUM CHLORIDE 0.9% 1,000 ML IV SCH (21:28)
[2021-07-13] MEDS: CEFEPIME 2 GM in SODIUM CHLORIDE 0.9% 100 ML IVPB SCH ×3 (04:30→20:19)
[2021-07-13 04:57] LABS: Appearance,Urine Clear (Clear); Bilirubin,Urine Negative (Negative); Blood,Urine Trace (Negative); Color,Urine Yellow; Glucose,Urine (UA) Negative (Negative); Ketones,Urine Trace (Negative); Leukocyte Esterase,Urine Negative (Negative); Mucus,Urine Rare /hpf; Nitrite,Urine Negative (Negative); PH, Urine 5.5 (5.0-8.0); Protein,Urine Negative (Negative); RBC,Urine <1 /hpf (0-5); Specific Gravity,Urine 1.043 (1.001-1.035); Urobilinogen,Urine <2.0 mg/dL (<2.0); WBC,Urine <1 /hpf (0-5)
[2021-07-13] MEDS: PANTOPRAZOLE 40 MG/10 ML VIAL IVP SCH ×2 (07:40→20:18)
[2021-07-13] MEDS: HYDROmorphone 0.5 MG/0.5 ML SYRINGE IVP PRN (07:41)
[2021-07-13 08:07] LABS: Anisocytosis Slight; Basophils # (A) 0.1 k/uL (0-0.2); Basophils % (A) 1 %; Eosinophils % (A) 0 %; HCT 21.1 % (39.0-53.0); Lymphocytes # (A) 1.2 k/uL (1.0-4.8); Lymphocytes % (A) 11 %; MCH 29.3 pg (25.0-35.0); MCHC 33.4 g/dL (31.0-37.0); MCV 87.7 fL (80.0-100.0); Mean Platelet Volume 7.6; Monocytes # (A) 0.5 k/uL (0-1.0); Monocytes % (A) 5 %; Neutrophils # (A) 8.7 k/uL (1.3-7.7); Neutrophils % (A) 82 %; Platelet Count 233 k/uL (150-450); Poikilocytosis Moderate; RDW 17.9 % (11.5-15.5); WBC 10.6 k/uL (3.8-10.6)
[2021-07-13] MEDS: SODIUM CHLORIDE 0.9% 1,000 ML IV SCH ×2 (09:00→20:32)
[2021-07-13] MEDS ORDERED: RX INFO: IV CONTRAST WAS GIVEN 1 EACH MISC MISCELLANE PRN (09:18)
[2021-07-13] MEDS ORDERED: HYDROcodone/APAP 5-325MG 1 EACH TAB PO PRN (10:31)
[2021-07-13] MEDS: HYDROmorphone 1 MG/ML 1 ML SYRINGE IVP PRN (10:55)
[2021-07-13 11:25] LABS: INR 1.29 (0.90-1.11); Prothrombin Time 13.8 sec (9.9-11.9)
[2021-07-13] MEDS: METOPROLOL SUCCINATE (ER) 25 MG TAB.ER.24H PO SCH (11:32)
--- NOTE | 2021-07-13 11:56 | P.CNPUL ---
History of Present Illness Consult date: 07/13/21 Requesting physician: Dominique Garcia Reason for consult: dyspnea, abnormal CXR/CT Chief complaint: Denies weakness, shortness of breath History of present illness: This is a very pleasant 80-year-old male patient who follows with Dr. Garcia as his primary care provider. He has a history of atrial fibrillation anticoagulated with warfarin, BPH, recent lower back pain was following with a chiropractor without much improvement. On he had a CAT scan of the chest done in the outpatient setting for his worsening shortness of breath. He was found to have a left upper lobe pleural-based mass suspicious for malignancy. This is measuring 2.3 x 2.0. There were also small sub-3 mm pul monary nodules in the left lower lobe. Right lung is clear. No greater than 1 cm hilar or mediastinal lymph nodes present. There were also findings compatible with metastatic disease to the liver as well as the thoracic segments. Difficult to exclude a left adrenal metastatic metastasis as well. A follow-up outpatient computed tomography scan of the abdomen was performed on 07/08/2021 that revealed small suspicious areas of mural thickening noted within adjacent lymph node or 2 involving the mid descending colon. Metastatic disease to the liver. Abnormal bony lucencies suspicious for metastatic disease to the distal thoracic spine, lumbar spine and sacrum pelvis and proximal femoral. Noted nodule of the left lung as well. Based on these findings he was referred to oncology and was seen in the office yesterday but was referred here to the emergency room for extreme weakness hypotension and hypoxemia. No PET scan done yet. No biopsies have been obtained yet. He was hypoxic and a CT angiogram ruled out pulmonary embolism. He is currently seen in the emergency room. He is currently resting fairly comfortable on the stretcher. Awake and alert in no acute distress. He is requiring 4 L nasal cannula to maintain O2 saturation in the low 90s. He is quite weak. Quite fatigued. He has had at least a 15 pound weight loss in the past several months. He has had ongoing issues with low back pain. White count 10.6. Hemoglobin 7.0. Initial INR 7.2. He did receive vitamin K 5 mg 1. Current INR 1.29. Platelets 233. Sodium 136. Potassium 4.5. Creatinine 0.97. Glucose 182. AST 44. ALT 20. Alk phos 276. Troponin negative 1. ProBNP 1600. Calcium 9.2. Coronavirus not detected. He's received 500 mL of fluid resuscitation. Currently on 0.9 normal sinus 75 ML's per hour. He was initiated on cefepime. Review of Systems REVIEW OF SYSTEMS: CONSTITUTIONAL: Positive for significant weight loss. EYES: Denies change in vision. EARS, NOSE, MOUTH, THROAT: Denies headaches, denies sore throat. CARDIOVASCULAR: Denies chest pain, palpitations or syncopal episodes. RESPIRATORY: Positive for shortness of breath, no cough, congestion or hemoptysis. GASTROINTESTINAL: Positive for poor appetite GENITOURINARY: Denies hematuria, denies infections. MUSKULOSKELETAL: Positive for ongoing back pain. INTEGUMENTARY: Denies rash, denies eczema. NEUROLOGICAL: Denies recent memory loss, no recent seizure activity. PSYCHIATRIC: Denies anxiety, denies depression. HEMATOLOGIC/LYMPHATIC: Denies anemia, denies enlarged lymph nodes. Past Medical History Past Medical History: Atrial Fibrillation Additional Past Medical History / Comment(s): Metastatic cancer Lung, Liver and bone. Unclear primary. No biopsy or diagnosis yet History of Any Multi-Drug Resistant Organisms: None Reported Past Surgical History: No Surgical Hx Reported Past Psychological History: No Psychological Hx Reported Smoking Status: Former smoker (Quit in the 1980s) Past Alcohol Use History: None Reported Past Drug Use History: None Reported Medications and Allergies Home Medications Medication Instructions Recorded Confirmed Type Baclofen [Lioresal] 10 mg PO TID 07/12/21 07/12/21 History Ferrous Sulfate [Feosol] 325 mg PO DAILY 07/12/21 07/12/21 History Furosemide [Lasix] 40 mg PO DAILY 07/12/21 07/12/21 History Metoprolol Succinate [Toprol XL] 25 mg PO DAILY 07/12/21 07/12/21 History Tamsulosin [Flomax] 0.4 mg PO BID 07/12/21 07/12/21 History Warfarin [Coumadin] 2 mg PO SUTUTHSA 07/12/21 07/12/21 History Warfarin [Coumadin] 5 mg PO DAILY 07/12/21 07/12/21 History Allergies Allergy/AdvReac Type Severity Reaction Status Date / Time No Known Allergies Allergy Verified 07/12/21 16:52 Physical Exam Vitals: Vital Signs Temp Pulse Resp BP Pulse Ox 07/13/21 10:00 103 H 18 123/52 95 07/13/21 07:36 110 H 18 104/58 94 L 07/13/21 06:41 98.4 F 92 18 101/55 99 07/13/21 04:40 112 H 18 113/58 95 07/13/21 02:00 105 H 18 121/63 93 L 07/13/21 01:32 102 H 18 104/59 90 L 07/12/21 22:52 80 18 95/53 90 L 07/12/21 16:01 97.4 F L 90 22 86/53 90 L Intake and Output 07/12/21 07/13/21 07/13/21 22:59 06:59 14:59 Other: Weight 82.1 kg GENERAL EXAM: Alert, very pleasant 72-year-old gentleman, quite weak, on 4 L nasal cannula, fairly comfortable in no apparent distress. HEAD: Normocephalic. EYES: Normal reaction of pupils, equal size. NOSE: Clear with pink turbinates. THROAT: No erythema or exudates. NECK: No masses, no JVD. CHEST: No chest wall deformity. LUNGS: Equal air entry with no crackles, wheeze, rhonchi or dullness. CVS: S1 and S2 normal with no audible murmur, regular rhythm. ABDOMEN: No hepatosplenomegaly, normal bowel sounds, no guarding or rigidity. SPINE: No scoliosis or deformity SKIN: No rashes CENTRAL NERVOUS SYSTEM: No focal deficits, tone is normal in all 4 extremities. EXTREMITIES: There is no peripheral edema. No clubbing, no cyanosis. Peripheral pulses are intact. Results - Laboratory Findings CBC and BMP: 07/13/21 07:26 07/12/21 16:29 PT/INR, D-dimer PT 13.8 sec (9.9-11.9) H 07/13/21 07:26 INR 1.29 (0.90-1.11) H 07/13/21 07:26 Abnormal lab findings: Abnormal Labs 07/12/21 07/12/21 07/12/21 16:29 16:29 16:29 WBC 14.4 H RBC 3.21 L Hgb 9.7 L Hct 27.6 L RDW 17.4 H Neutrophils # Neutrophils # (Manual) 12.30 H Metamyelocytes # (Man) 0.14 H Nucleated RBCs 1 H PT INR APTT Sodium 136 L Carbon Dioxide 21 L BUN 48 H Glucose 182 H Plasma Lactic Acid Chao 2.9 H* Alkaline Phosphatase 276 H Total Protein 6.2 L Ur Specific [place] Urine Ketones Urine Blood Urine Mucus 07/12/21 07/13/21 07/13/21 17:40 04:30 07:26 WBC RBC 2.40 L Hgb 7.0 L D Hct 21.1 L RDW 17.9 H Neutrophils # 8.7 H Neutrophils # (Manual) Metamyelocytes # (Man) Nucleated RBCs PT 70.3 H INR 7.2 H* APTT 46.3 H Sodium Carbon Dioxide BUN Glucose Plasma Lactic Acid Chao Alkaline Phosphatase Total Protein Ur Specific [place] 1.043 H Urine Ketones Trace H Urine Blood Trace H Urine Mucus Rare H 07/13/21 07:26 WBC RBC Hgb Hct RDW Neutrophils # Neutrophils # (Manual) Metamyelocytes # (Man) Nucleated RBCs PT 13.8 H INR 1.29 H APTT Sodium Carbon Dioxide BUN Glucose Plasma Lactic Acid Chao Alkaline Phosphatase Total Protein Ur Specific [place] Urine Ketones Urine Blood Urine Mucus - Diagnostic Findings CT scan - chest: image reviewed Assessment and Plan Assessment: 1 Generalized weakness, fatigue, poor appetite and weight loss with shortness of breath secondary to metastatic cancer involving the lung, liver, bone, possible colon, and possible left adrenal gland. New diagnosis with initial CAT scans done 1 week ago. No biopsies thus far. No PET scan. Workup is pending. Most likely FNA of the liver would be most beneficial. 2 Hypercoagulopathy with presenting INR of 7.2 secondary to warfarin therapy and hepatic involvement 3 Acute hypoxic respiratory failure suspect secondary to anemia 4 Acute anemia, possible GI bleed, current hemoglobin 7.0 5 Acute back pain suspect secondary to metastatic disease 6 Remote history of chronic tobacco dependence however quit back in the 7 Paroxysmal atrial fibrillation, anticoagulated with warfarin 8 BPH Plan: The patient was seen and evaluated by Dr. Blackwell CAT scan of labs reviewed Vitamin K 5 mg 1 Obtain an MRI of the brain, bone scan Obtain PSA, AFP, CEA, CA 199 Obtain stool for occult blood Consult interventional radiology for possible liver biopsy Outpatient PET scan Oncology consulted We will continue to follow and make further recommendations based on his clinical status I, the cosigning physician, performed a history & physical examination of the patient. Lungs sounds are clear. Maintaining good O2 saturations in the 90s on 4 L/m per nasal cannula. I discussed the assessment and plan of care with my nurse practitioner, Karen Mejia. I attest to the above consultation as dictated by her. Time with Patient: Greater than 30
[2021-07-13 11:59] LABS: African American GFR (CKD) 99.2 (60.0-200.0); Albumin/Globulin Ratio 1.58 (1.60-3.17); Anion Gap 17.7 mmol/L (4.00-12.00); BUN/Creat Ratio 52.75 Ratio (12.00-20.00); Blood Urea Nitrogen 42.2 mg/dL (9.0-27.0); Calcium 8.4 mg/dL (8.7-10.3); Carbon Dioxide 14.3 mmol/L (21.6-31.8); Globulin 1.9 g/dL (1.6-3.3); Non-African American GFR(CKD) 85.6 (60.0-200.0); Potassium 3.9 mmol/L (3.5-5.5); Total Bilirubin 0.8 mg/dL (0.30-1.20); Total Protein 4.9 g/dL (6.2-8.2)
--- NOTE | 2021-07-13 13:31 | P.HPIM ---
History of Present Illness H&P Date: 07/13/21 Chief Complaint: Shortness of breath, weight loss, increased weakness 80 years old a clinic patient of mine with past medical history of atrial fibrillation anticoagulated with Coumadin, BPH, prediabetes was seen in the clinic 2 weeks ago for the increased [id number] pound loss of weight and shortness of breath. Patient underwent workup including blood work, chest x-ray which was concerning for elevated liver enzymes. CXR was normal. Patient was complaining of significant left shoulder pain associated with chest pain associated with shortness of breath. CT chest, abdomen and pelvis was obtained as outpatient. CT chest was concerning for a left upper lobe pleural-based mass suspicion for malignancy with metastatic disease to the liver as well as vi sualized thoracic segment. 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 Once insurance approved CT abd, CT abdomen and pelvis showed suspicious area of mural thickening within the LN involving the mid ascending colon which was suspicious for neoplasm. Metastatic disease to the liver, distal thoracic spine and lumbar spine and sacrum pelvis and proximal femoral was noted. Patient was scheduled for outpatient evaluation with oncology. Tumor markers were ordered and were pending. Over the past few days patient has become increasingly confused, short of breath, weak. at bedside stated patient is unable to walk due to increased weakness. He was seen by oncology office yesterday and was noted to be desaturating in the low 80s and was sent to the ER for evaluation. CT angiogram was obtained in the ER was negative for pulmonary embolism, left upper lobe mass 2.5 cm in size and multiple osteosclerotic and osteolytic changes were needed noted in the thoracic spine. White is in the ER temp of 98.4 tachycardic 110, respiratory rate 18 blood pressure 104/58 oxygen saturation 94% on 4 L. Labs are reviewed patient has leukocytosis of 14.4 hemoglobin 9.7 platelet 325 in and was noted to be 7.2, sodium 136 bicarb 20 1B UN 48 creatinine 0.93 alkaline phosphatase was elevated at 276 proBNP was 1600. Repeat labs this morning is suggestive of a drop in hemoglobin to 7 INR has improved to 1.9 with vitamin K given in the ER yesterday and i anion gap is increased to 17 UA was negative for infection stool occult was positive. CT chest was concerning for a left upper lobe pleural-based mass suspicion for malignancy with metastatic disease to the liver as well as visualized thoracic segment. 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 CT abdomen and pelvis was suggestive of response to suspicious area of mural thickening within the descending colon to involving the mid ascending colon which was suspicious for neoplasm. Metastatic disease to the liver, distal thoracic spine and lumbar spine and sacrum pelvis and proximal femoral was noted CT angiogram was obtained in the ER was negative for pulmonary embolism, left upper lobe mass 2.5 cm in size and multiple osteosclerotic and osteolytic changes were needed noted in the thoracic spine. ROS Constitutional: Denies chills, Denies fever, endorses lethargy, endorses malaise, endorses poor appetite, endorses weakness, endorses weight loss Eyes: denies decreased vision, denies diplopia, denies discharge, denies pain Ears: deny: decreased hearing Ears, nose, mouth and throat: Denies dental pain, Denies headache, Denies nasal discharge, Denies nose pain Cardiovascular: Denies chest pain, Denies decreased exercise tolerance, Denies edema, Denies high blood pressure, Denies irregular heart beat, Denies palpitations, Denies paroxysmal nocturnal dyspnea, Denies rapid heart beat, Denies shortness of breath Respiratory: Denies congestion, Denies cough, Denies cough with sputum, endorses dyspnea, Denies home oxygen, Denies wheezing Gastrointestinal: Denies abdominal pain, Denies change in bowel habits, Denies c offee ground emesis, Denies early satiety, Denies excessive gas, Denies heartburn, Denies hematemesis, Denies hematochezia, Denies loss of appetite, Denies nausea, Denies vomiting Genitourinary: Denies dysuria, Denies flank pain, Denies kidney stones, Denies menorrhagia, Denies urgency, Denies urinary frequency Musculoskeletal: Denies gait dysfunction, Denies limitation of motion, Denies morning stiffness, Denies muscle cramps Integumentary: Denies rash, Denies wounds, Denies brittle nails, Denies change in hair/nails, Denies darkening of skin Neurological: Denies balance difficulties, Denies change in speech, Denies double vision, Denies gait dysfunction, Denies loss of vision, Denies motor disturbance, Denies numbness, Denies paralysis, Denies paresthesias, Denies seizures Psychiatric: increased anxiety, Denies depression Endocrine: Denies excessive sweating, Denies excessive thirst, Denies high blood sugars, Denies palpitations Hematologic/Lymphatic: Denies easy bruising, Denies lymphadenopathy Social history Former smoker smoked 2-3 pack a day for 16 years. Quit in the late 80s, no history of alcohol use. Patient wears CPAP but has not been using for the past few days. Patient does not wear oxygen at 4 Family history Mom diseases in the late 60s from brain tumor Father in the 70s and COPD One brother with no medical problems Sisters, 2 sisters doing well Has 2 children healthy Physical exam - Constitutional General appearance: cooperative, in mild distress, frail looking- EENT Eyes: anicteric sclerae, PERRLA, normal appearance ENT: hearing grossly normal - Neck Neck: no lymphadenopathy, normal ROM, no other, no rigidity, no stridor, no thyromegaly - Respiratory Respiratory: bilateral: CTA, negative: diminished, dullness, rales, rhonchi - Cardiovascular Rhythm: Tachycardic Heart sounds: normal: S1, S2 Abnormal Heart Sounds: no systolic murmur, no diastolic murmur, no rub, no S3 Gallop, no S4 Gallop, no click, no other - Gastrointestinal General gastrointestinal: normal bowel sounds, soft nontender - Integumentary Integumentary: no rash - Neurologic Neurologic: No motor or sensory deficits - Musculoskeletal Musculoskeletal: Increasingly weak, gait not assessed strength equal bilaterally - Psychiatric Psychiatric: A&O x's 3, appropriate affect Assessment and plan # acute metabolic encephalopathy rule out metastatic test of the brain. MRI brain ordered. Patient is oriented 3 at baseline does have hearing deficit for which the assist. Seizure precautions. # generalized weakness with increased ability secondary to metastasis. is unable to take care of patient at home. Patient may benefit from subacute rehab. PTOT for assessment # acute hypoxic respiratory failure PE ruled out. No consolidations noted on CT chest. 2.5 cm left-sided pleural lesion. Pro-calcitonin ordered continue cefepime 2 g every 8 hours #metastatic cancer with primary unknown. multiple osteolytic and osteosclerotic lesion involving thoracic spine, lumbar spine sacrum and pelvis. Cancer markers ordered in the office. Alpha-fetoprotein, CEA 125, PSA CA 19-9 ordered. Immunofixation protein electrophoresis ordered. Oncology consulted. lesion involving the ascending colon noted may need surgery consult for colonoscopy. Bone scan ordered # acute anemia possible GI bleed hemoglobin dropped to 7 status post 1 unit PRBC today. Repeat CBC every 6 hours. Fecal occult positive. Surgery consult for colonoscopy #paroxysmal atrial fibrillation on Coumadin and metoprolol. Coumadin held because of concern for GI bleed. INR 7.2 on admission status was 5 mg vitamin K # coagulopathy on Coumadin status post vitamin K 1 dose INR 1.29 now # acute back pain secondary to metastasis. diaudid 1 mg every 3 hours with [place] 5 every 6 hours. # prediabetes diabetic diet # Multiple liver metastasis. Consult for possible biopsy # CODE STATUS discussed with at bedside and patient. Agreed on full code. Has living willl that they will bring to the hospital # DVT prophylaxis with SCD as patient has ongoing GI bleed #GI prophylaxis with Protonix 40 twice a day #disposition patient to be in the hospital for 1-2 inpatient Past Medical History Past Medical History: Atrial Fibrillation Additional Past Medical History / Comment(s): Metastatic cancer Lung, Liver and bone. Unclear primary. No biopsy or diagnosis yet History of Any Multi-Drug Resistant Organisms: None Reported Past Surgical History: No Surgical Hx Reported Past Psychological History: No Psychological Hx Reported Smoking Status: Former smoker (Quit in the 1980s) Past Alcohol Use History: None Reported Past Drug Use History: None Reported Medications and Allergies Home Medications Medication Instructions Recorded Confirmed Type Baclofen [Lioresal] 10 mg PO TID 07/12/21 07/12/21 History Ferrous Sulfate [Feosol] 325 mg PO DAILY 07/12/21 07/12/21 History Furosemide [Lasix] 40 mg PO DAILY 07/12/21 07/12/21 History Metoprolol Succinate [Toprol XL] 25 mg PO DAILY 07/12/21 07/12/21 History Tamsulosin [Flomax] 0.4 mg PO BID 07/12/21 07/12/21 History Warfarin [Coumadin] 2 mg PO SUTUTHSA 07/12/21 07/12/21 History Warfarin [Coumadin] 5 mg PO DAILY 07/12/21 07/12/21 History Allergies Allergy/AdvReac Type Severity Reaction Status Date / Time No Known Allergies Allergy Verified 07/12/21 16:52 Physical Exam Vitals: Vital Signs Temp Pulse Resp BP Pulse Ox 07/13/21 10:00 103 H 18 123/52 95 07/13/21 07:36 110 H 18 104/58 94 L 07/13/21 06:41 98.4 F 92 18 101/55 99 07/13/21 04:40 112 H 18 113/58 95 07/13/21 02:00 105 H 18 121/63 93 L 07/13/21 01:32 102 H 18 104/59 90 L 07/12/21 22:52 80 18 95/53 90 L 07/12/21 16:01 97.4 F L 90 22 86/53 90 L Intake and Output 07/12/21 07/13/21 07/13/21 22:59 06:59 14:59 Other: Weight 82.1 kg Results CBC & Chem 7: 07/13/21 07:26 07/13/21 07:26 Labs: Abnormal Lab Results - Last 24 Hours (Table) 07/12/21 07/12/21 07/12/21 Range/Units 16:29 16:29 16:29 WBC 14.4 H (3.8-10.6) k/uL RBC 3.21 L (4.30-5.90) m/uL Hgb 9.7 L (13.0-17.5) gm/dL Hct 27.6 L (39.0-53.0) % RDW 17.4 H (11.5-15.5) % Neutrophils # (1.3-7.7) k/uL Neutrophils # (Manual) 12.30 H (1.3-7.7) k/uL Metamyelocytes # (Man) 0.14 H (0) k/uL Nucleated RBCs 1 H (0-0) /100 WBC PT (9.0-12.0) sec INR (<1.2) APTT (22.0-30.0) sec Sodium 136 L (137-145) mmol/L Carbon Dioxide 21 L (22-30) mmol/L Anion Gap (4.00-12.00) mmol/L BUN 48 H (9-20) mg/dL BUN/Creatinine Ratio (12.00-20.00) Ratio Glucose 182 H (74-99) mg/dL Plasma Lactic Acid Chao 2.9 H* (0.7-2.0) mmol/L Calcium (8.7-10.3) mg/dL AST (14-35) U/L Alkaline Phosphatase 276 H (38-126) U/L Total Protein 6.2 L (6.3-8.2) g/dL Albumin (3.8-4.9) g/dL Albumin/Globulin Ratio (1.60-3.17) g/dL Ur Specific [place] (1.001-1.035) Urine Ketones (Negative) Urine Blood (Negative) Urine Mucus (None) /hpf Crossmatch 07/12/21 07/13/21 07/13/21 Range/Units 17:40 04:30 07:26 WBC (3.8-10.6) k/uL RBC 2.40 L (4.30-5.90) m/uL Hgb 7.0 L D (13.0-17.5) gm/dL Hct 21.1 L (39.0-53.0) % RDW 17.9 H (11.5-15.5) % Neutrophils # 8.7 H (1.3-7.7) k/uL Neutrophils # (Manual) (1.3-7.7) k/uL Metamyelocytes # (Man) (0) k/uL Nucleated RBCs (0-0) /100 WBC PT 70.3 H (9.0-12.0) sec INR 7.2 H* (<1.2) APTT 46.3 H (22.0-30.0) sec Sodium (137-145) mmol/L Carbon Dioxide (22-30) mmol/L Anion Gap (4.00-12.00) mmol/L BUN (9-20) mg/dL BUN/Creatinine Ratio (12.00-20.00) Ratio Glucose (74-99) mg/dL Plasma Lactic Acid Chao (0.7-2.0) mmol/L Calcium (8.7-10.3) mg/dL AST (14-35) U/L Alkaline Phosphatase (38-126) U/L Total Protein (6.3-8.2) g/dL Albumin (3.8-4.9) g/dL Albumin/Globulin Ratio (1.60-3.17) g/dL Ur Specific [place] 1.043 H (1.001-1.035) Urine Ketones Trace H (Negative) Urine Blood Trace H (Negative) Urine Mucus Rare H (None) /hpf Crossmatch 07/13/21 07/13/21 07/13/21 Range/Units 07:26 07:26 11:25 WBC (3.8-10.6) k/uL RBC (4.30-5.90) m/uL Hgb (13.0-17.5) gm/dL Hct (39.0-53.0) % RDW (11.5-15.5) % Neutrophils # (1.3-7.7) k/uL Neutrophils # (Manual) (1.3-7.7) k/uL Metamyelocytes # (Man) (0) k/uL Nucleated RBCs (0-0) /100 WBC PT 13.8 H (9.0-12.0) sec INR 1.29 H (<1.2) APTT (22.0-30.0) sec Sodium (137-145) mmol/L Carbon Dioxide 14.3 L (22-30) mmol/L Anion Gap 17.70 H (4.00-12.00) mmol/L BUN 42.2 H (9-20) mg/dL BUN/Creatinine Ratio 52.75 H (12.00-20.00) Ratio Glucose 147 H (74-99) mg/dL Plasma Lactic Acid Chao (0.7-2.0) mmol/L Calcium 8.4 L (8.7-10.3) mg/dL AST 36 H (14-35) U/L Alkaline Phosphatase 239 H (38-126) U/L Total Protein 4.9 L (6.3-8.2) g/dL Albumin 3.0 L (3.8-4.9) g/dL Albumin/Globulin Ratio 1.58 L (1.60-3.17) g/dL Ur Specific [place] (1.001-1.035) Urine Ketones (Negative) Urine Blood (Negative) Urine Mucus (None) /hpf Crossmatch See Detail
[2021-07-13 15:53] LABS: Anisocytosis Slight; Basophils # (A) 0.1 k/uL (0-0.2); Basophils % (A) 1 %; Eosinophils % (A) 0 %; HCT 21.7 % (39.0-53.0); HGB 7.1 gm/dL (13.0-17.5); Hypochromasia Slight; Lymphocytes # (A) 1.1 k/uL (1.0-4.8); Lymphocytes % (A) 9 %; MCH 29.9 pg (25.0-35.0); MCHC 32.6 g/dL (31.0-37.0); MCV 91.7 fL (80.0-100.0); Mean Platelet Volume 7.4; Monocytes # (A) 0.6 k/uL (0-1.0); Monocytes % (A) 5 %; Neutrophils % (A) 84 %; Platelet Count 255 k/uL (150-450); Poikilocytosis Moderate; RBC 2.37 m/uL (4.30-5.90); RDW 18.7 % (11.5-15.5); WBC 13.1 k/uL (3.8-10.6)
[2021-07-13 15:57] LABS: ALT 16 U/L (4-49); AST 41 U/L (17-59); African American GFR (CKD) >90 (>60 ml/min/1.73 sqM); Albumin 2.9 g/dL (3.5-5.0); Albumin/Globulin Ratio 1.2; Alkaline Phosphatase 235 U/L (38-126); Anion Gap 6 mmol/L; Blood Urea Nitrogen 41 mg/dL (9-20); Calcium 8.8 mg/dL (8.4-10.2); Carbon Dioxide 21 mmol/L (22-30); Chloride 110 mmol/L (98-107); Globulin 2.5 g/dL; Glucose 163 mg/dL (74-99); Non-African American GFR(CKD) 89 (>60 ml/min/1.73 sqM); Sodium 137 mmol/L (137-145); Total Bilirubin 0.9 mg/dL (0.2-1.3); Total Protein 5.4 g/dL (6.3-8.2)
--- NOTE | 2021-07-13 16:12 | P.CONS ---
History of Present Illness - Reason for Consult Consult date: 07/13/21 lung mass Requesting physician: [place] - Chief Complaint wt loss, SOB - History of Present Illness Mr. Grace is a pleasant male seen as a referral by Dr. Nichole in the ofc yesterday because of findings suggestive of metastatic malignancy. Pt presented to his PCP on 07/05/21, complaining of SOB on exertion. This had apparently started in 03/06 and had been progressively getting worse. Prior to that office visit he had had some episodic chest pain. He lost about 15-20 pounds since the onset of symptoms due to associated loss of appetite and energy. Additional workup done, labs showed liver enzyme elevation, Hgb 11.8, platelets of 284, and WBC 9.77 with normal differential. Additional labs included AFP normal at 1.8. CA-125 was elevated at 1728, and CA-19-[id number] chest 07/06/21 showed a 2.3 x 2 cm pleural-based mass in the left upper lobe, additionally there were at least 5 lesions noted in the liver suspicious for metastatic disease. CT AP 07/08/21 showed at least 4 hepatic lesions the largest addition to the falciform ligament measuring 2.8 cm. There was a small suspicious area of pleural thickening with possible adjacent lymph node around the mid ascending colon. No metastatic disease noted in the distal thoracic and lumbar spine, sacrum pelvis and proximal femurs. No prior history of malignancy. He used to smoke about 2 packs a day but quit in the 1980s. He also reports heavy alcohol use in the past, but also quit that in the . Negative colonoscopy in 2019. PSA in 07/06 was normal at 2.5. It was discussed with pt and that imaging studies that are highly suspicious for widespread metastatic disease, obvious primary not apparent. Plan was to obtain a tissue diagnosis with the biopsy and obtain brain imaging. In ofc pt systolic was in the 70's O2 was in the 50-60% range. He was directed to ER, case was discussed in detail with the emergency room Physician. Pt seen in ER. His O2 sat is 92%, BP better, pt has no new c/o, no fever, N,V, chest pain. His INR is 7.2, denies any bleeding. Review of Systems 10 point ROS is neg except as stated in HPI Past Medical History Past Medical History: Atrial Fibrillation Additional Past Medical History / Comment(s): Metastatic cancer Lung, Liver and bone. Unclear primary. No biopsy or diagnosis yet History of Any Multi-Drug Resistant Organisms: None Reported Past Surgical History: No Surgical Hx Reported Past Psychological History: No Psychological Hx Reported Smoking Status: Former smoker (Quit in the 1980s) Past Alcohol Use History: None Reported Past Drug Use History: None Reported - Past Family History Mother Family Medical History: Unable to Obtain Father Family Medical History: Asthma Medications and Allergies Home Medications Medication Instructions Recorded Confirmed Type Baclofen [Lioresal] 10 mg PO TID 07/12/21 07/12/21 History Ferrous Sulfate [Feosol] 325 mg PO DAILY 07/12/21 07/12/21 History Furosemide [Lasix] 40 mg PO DAILY 07/12/21 07/12/21 History Metoprolol Succinate [Toprol XL] 25 mg PO DAILY 07/12/21 07/12/21 History Tamsulosin [Flomax] 0.4 mg PO BID 07/12/21 07/12/21 History Warfarin [Coumadin] 2 mg PO SUTUTHSA 07/12/21 07/12/21 History Warfarin [Coumadin] 5 mg PO DAILY 07/12/21 07/12/21 History Allergies Allergy/AdvReac Type Severity Reaction Status Date / Time No Known Allergies Allergy Verified 07/12/21 16:52 Physical Exam Vitals: Vital Signs Temp Pulse Resp BP Pulse Ox 07/13/21 13:00 120 H 16 115/64 94 L 07/13/21 10:00 103 H 18 123/52 95 07/13/21 07:36 110 H 18 104/58 94 L 07/13/21 06:41 98.4 F 92 18 101/55 99 07/13/21 04:40 112 H 18 113/58 95 07/13/21 02:00 105 H 18 121/63 93 L 07/13/21 01:32 102 H 18 104/59 90 L 07/12/21 22:52 80 18 95/53 90 L 07/12/21 16:01 97.4 F L 90 22 86/53 90 L Intake and Output 07/13/21 07/13/21 07/13/21 06:59 14:59 22:59 Other: Weight 82.1 kg - Constitutional General appearance: average body habitus, cooperative, no acute distress - EENT dry oral mucosa Eyes: anicteric sclerae, EOMI ENT: hearing grossly normal - Neck Neck: no lymphadenopathy - Respiratory SOB at rest Respiratory: bilateral: diminished (tight) - Cardiovascular Rhythm: regular Heart sounds: normal: S1, S2 Abnormal Heart Sounds: no systolic murmur, no diastolic murmur, no rub, no S3 Gallop, no S4 Gallop, no click, no other leg Peripheral Edema: bilateral: None - Gastrointestinal General gastrointestinal: no absent bowel sounds, no decreased bowel sounds, no distended, no hepatomegaly, no hyperactive bowel sounds, normal bowel sounds, no organomegaly, no rigid, no scaphoid, soft, no splenomegaly, no tenderness, no umbilical hernia, no ventral hernia - Integumentary Integumentary: pale - Neurologic Neurologic: CNII-XII intact - Musculoskeletal Musculoskeletal: generalized weakness, strength equal bilaterally - Psychiatric Psychiatric: A&O x's 3, appropriate affect, intact judgment & insight Results CBC & Chem 7: 07/13/21 15:28 07/13/21 15:28 Labs: Abnormal Lab Results - Last 24 Hours (Table) 07/12/21 07/12/21 07/12/21 Range/Units 16:29 16:29 16:29 WBC 14.4 H (3.8-10.6) k/uL RBC 3.21 L (4.30-5.90) m/uL Hgb 9.7 L (13.0-17.5) gm/dL Hct 27.6 L (39.0-53.0) % RDW 17.4 H (11.5-15.5) % Neutrophils # (1.3-7.7) k/uL Neutrophils # (Manual) 12.30 H (1.3-7.7) k/uL Metamyelocytes # (Man) 0.14 H (0) k/uL Nucleated RBCs 1 H (0-0) /100 WBC PT (9.0-12.0) sec INR (<1.2) APTT (22.0-30.0) sec Sodium 136 L (137-145) mmol/L Carbon Dioxide 21 L (22-30) mmol/L Anion Gap (4.00-12.00) mmol/L BUN 48 H (9-20) mg/dL BUN/Creatinine Ratio (12.00-20.00) Ratio Glucose 182 H (74-99) mg/dL Plasma Lactic Acid Chao 2.9 H* (0.7-2.0) mmol/L Calcium (8.7-10.3) mg/dL AST (14-35) U/L Alkaline Phosphatase 276 H (38-126) U/L Total Protein 6.2 L (6.3-8.2) g/dL Albumin (3.8-4.9) g/dL Albumin/Globulin Ratio (1.60-3.17) g/dL Ur Specific [place] (1.001-1.035) Urine Ketones (Negative) Urine Blood (Negative) Urine Mucus (None) /hpf Crossmatch 07/12/21 07/13/21 07/13/21 Range/Units 17:40 04:30 07:26 WBC (3.8-10.6) k/uL RBC 2.40 L (4.30-5.90) m/uL Hgb 7.0 L D (13.0-17.5) gm/dL Hct 21.1 L (39.0-53.0) % RDW 17.9 H (11.5-15.5) % Neutrophils # 8.7 H (1.3-7.7) k/uL Neutrophils # (Manual) (1.3-7.7) k/uL Metamyelocytes # (Man) (0) k/uL Nucleated RBCs (0-0) /100 WBC PT 70.3 H (9.0-12.0) sec INR 7.2 H* (<1.2) APTT 46.3 H (22.0-30.0) sec Sodium (137-145) mmol/L Carbon Dioxide (22-30) mmol/L Anion Gap (4.00-12.00) mmol/L BUN (9-20) mg/dL BUN/Creatinine Ratio (12.00-20.00) Ratio Glucose (74-99) mg/dL Plasma Lactic Acid Chao (0.7-2.0) mmol/L Calcium (8.7-10.3) mg/dL AST (14-35) U/L Alkaline Phosphatase (38-126) U/L Total Protein (6.3-8.2) g/dL Albumin (3.8-4.9) g/dL Albumin/Globulin Ratio (1.60-3.17) g/dL Ur Specific [place] 1.043 H (1.001-1.035) Urine Ketones Trace H (Negative) Urine Blood Trace H (Negative) Urine Mucus Rare H (None) /hpf Crossmatch 07/13/21 07/13/21 07/13/21 Range/Units 07:26 07:26 11:25 WBC (3.8-10.6) k/uL RBC (4.30-5.90) m/uL Hgb (13.0-17.5) gm/dL Hct (39.0-53.0) % RDW (11.5-15.5) % Neutrophils # (1.3-7.7) k/uL Neutrophils # (Manual) (1.3-7.7) k/uL Metamyelocytes # (Man) (0) k/uL Nucleated RBCs (0-0) /100 WBC PT 13.8 H (9.0-12.0) sec INR 1.29 H (<1.2) APTT (22.0-30.0) sec Sodium (137-145) mmol/L Carbon Dioxide 14.3 L (22-30) mmol/L Anion Gap 17.70 H (4.00-12.00) mmol/L BUN 42.2 H (9-20) mg/dL BUN/Creatinine Ratio 52.75 H (12.00-20.00) Ratio Glucose 147 H (74-99) mg/dL Plasma Lactic Acid Chao (0.7-2.0) mmol/L Calcium 8.4 L (8.7-10.3) mg/dL AST 36 H (14-35) U/L Alkaline Phosphatase 239 H (38-126) U/L Total Protein 4.9 L (6.3-8.2) g/dL Albumin 3.0 L (3.8-4.9) g/dL Albumin/Globulin Ratio 1.58 L (1.60-3.17) g/dL Ur Specific [place] (1.001-1.035) Urine Ketones (Negative) Urine Blood (Negative) Urine Mucus (None) /hpf Crossmatch See Detail Chest x-ray: report reviewed CT scan - chest: report reviewed Assessment and Plan (1) Liver mass Current Visit: Yes Status: Acute Priority: High Code(s): R16.0 - HEPATOMEGALY, NOT ELSEWHERE CLASSIFIED SNOMED Code(s): 178105325 (2) Lung mass Current Visit: Yes Status: Acute Priority: High Code(s): R91.8 - OTHER NONSPECIFIC ABNORMAL FINDING OF LUNG FIELD SNOMED Code(s): 423056947 (3) Supratherapeutic INR Narrative/Plan: Pt is on coumadin for afib, > 6 mo. Pt appetite and oral intake have been diminished recently and likely cause for increase. INR 7.2. Parenteral vit K ordered, repeat labs in AM. NO asa, NSAIDs, ibuprofen, motrin, anticoagulants, antiplatelet meds. Current Visit: Yes Status: Acute Priority: High Code(s): R79.1 - ABNORMAL COAGULATION PROFILE SNOMED Code(s): 889636291 Plan: Dr. Nichole saw pt in the ofc yesterday as a new consult for wt. loss, anorexia and SOB. Plan for biopsy of liver lesion and MRI brain and NM bone scan to complete staging Dr attests: I have performed H&P, seen and examined pt, developed impression and plan of care. Discussed with dictator. Agree with dictated note, documented as a scribe.
[2021-07-13] MEDS: BACLOFEN 10 MG TAB PO SCH (16:24)
[2021-07-13 16:32] LABS: Polychromasia Present
--- NOTE | 2021-07-13 17:39 | P.GSCN ---
History of Present Illness Consult date: 07/13/21 History of present illness: The patient is admitted due to shortness of breath weight loss and weakness. He's been worked up recently for probable metastatic cancer. Due to worsening symptoms he was admitted. While he is here his hemoglobin has dropped. No prior history of ulcer disease. Patient did have a colonoscopy last year. This was performed at [facility]. The initial prep was poor so he was reprepped and evidently the colonoscopy was normal. He hasn't noticed blood in the stool or dark tarry stool. Hemoccult was positive. He did have an increase INR on admission at 7.2. He's been treated in the INR is 7.29 this morning. Hemoglobin went from 9.7 down to 7 Review of Systems All systems: negative Past Medical History Past Medical History: Atrial Fibrillation Additional Past Medical History / Comment(s): Metastatic cancer Lung, Liver and bone. Unclear primary. No biopsy or diagnosis yet History of Any Multi-Drug Resistant Organisms: None Reported Past Surgical History: No Surgical Hx Reported Past Psychological History: No Psychological Hx Reported Smoking Status: Former smoker (Quit in the 1980s) Past Alcohol Use History: None Reported Past Drug Use History: None Reported - Past Family History Mother Family Medical History: Unable to Obtain Father Family Medical History: Asthma Medications and Allergies Home Medications Medication Instructions Recorded Confirmed Type Baclofen [Lioresal] 10 mg PO TID 07/12/21 07/12/21 History Ferrous Sulfate [Feosol] 325 mg PO DAILY 07/12/21 07/12/21 History Furosemide [Lasix] 40 mg PO DAILY 07/12/21 07/12/21 History Metoprolol Succinate [Toprol XL] 25 mg PO DAILY 07/12/21 07/12/21 History Tamsulosin [Flomax] 0.4 mg PO BID 07/12/21 07/12/21 History Warfarin [Coumadin] 2 mg PO SUTUTHSA 07/12/21 07/12/21 History Warfarin [Coumadin] 5 mg PO DAILY 07/12/21 07/12/21 History Allergies Allergy/AdvReac Type Severity Reaction Status Date / Time No Known Allergies Allergy Verified 07/12/21 16:52 Surgical - Exam Osteopathic Statement: *. No significant issues noted on an osteopathic structural exam other than those noted in the History and Physical/Consult. Vital Signs Temp Pulse Resp BP Pulse Ox 97.4 F L 90 22 86/53 90 L 07/12/21 16:01 07/12/21 16:01 07/12/21 16:01 07/12/21 16:01 07/12/21 16:01 - General no distress - Eyes normal ocular movement - Respiratory normal respiratory effort - Abdomen Abdomen: soft Results - Labs 07/13/21 15:28 07/13/21 15:28 Abnormal Lab Results - Last 24 Hours (Table) 07/12/21 07/12/21 07/13/21 Range/Units 16:29 17:40 04:30 WBC 14.4 H (3.8-10.6) k/uL RBC (4.30-5.90) m/uL Hgb (13.0-17.5) gm/dL Hct (39.0-53.0) % RDW (11.5-15.5) % Neutrophils # (1.3-7.7) k/uL Neutrophils # (Manual) 12.30 H (1.3-7.7) k/uL Metamyelocytes # (Man) 0.14 H (0) k/uL Nucleated RBCs 1 H (0-0) /100 WBC PT 70.3 H (9.0-12.0) sec INR 7.2 H* (<1.2) APTT 46.3 H (22.0-30.0) sec Chloride (98-107) mmol/L Carbon Dioxide (21.6-31.8) mmol/L Anion Gap (4.00-12.00) mmol/L BUN (9.0-27.0) mg/dL BUN/Creatinine Ratio (12.00-20.00) Ratio Glucose (70-110) mg/dL Calcium (8.7-10.3) mg/dL AST (14-35) U/L Alkaline Phosphatase (41-126) U/L Total Protein (6.2-8.2) g/dL Albumin (3.8-4.9) g/dL Albumin/Globulin Ratio (1.60-3.17) g/dL Ur Specific [place] 1.043 H (1.001-1.035) Urine Ketones Trace H (Negative) Urine Blood Trace H (Negative) Urine Mucus Rare H (None) /hpf Crossmatch 07/13/21 07/13/21 07/13/21 Range/Units 07:26 07:26 07:26 WBC (3.8-10.6) k/uL RBC 2.40 L (4.30-5.90) m/uL Hgb 7.0 L D (13.0-17.5) gm/dL Hct 21.1 L (39.0-53.0) % RDW 17.9 H (11.5-15.5) % Neutrophils # 8.7 H (1.3-7.7) k/uL Neutrophils # (Manual) (1.3-7.7) k/uL Metamyelocytes # (Man) (0) k/uL Nucleated RBCs (0-0) /100 WBC PT 13.8 H (9.0-12.0) sec INR 1.29 H (<1.2) APTT (22.0-30.0) sec Chloride (98-107) mmol/L Carbon Dioxide 14.3 L (21.6-31.8) mmol/L Anion Gap 17.70 H (4.00-12.00) mmol/L BUN 42.2 H (9.0-27.0) mg/dL BUN/Creatinine Ratio 52.75 H (12.00-20.00) Ratio Glucose 147 H (70-110) mg/dL Calcium 8.4 L (8.7-10.3) mg/dL AST 36 H (14-35) U/L Alkaline Phosphatase 239 H (41-126) U/L Total Protein 4.9 L (6.2-8.2) g/dL Albumin 3.0 L (3.8-4.9) g/dL Albumin/Globulin Ratio 1.58 L (1.60-3.17) g/dL Ur Specific [place] (1.001-1.035) Urine Ketones (Negative) Urine Blood (Negative) Urine Mucus (None) /hpf Crossmatch 07/13/21 07/13/21 07/13/21 Range/Units 11:25 15:28 15:28 WBC 13.1 H (3.8-10.6) k/uL RBC 2.37 L (4.30-5.90) m/uL Hgb 7.1 L (13.0-17.5) gm/dL Hct 21.7 L (39.0-53.0) % RDW 18.7 H (11.5-15.5) % Neutrophils # 11.0 H (1.3-7.7) k/uL Neutrophils # (Manual) (1.3-7.7) k/uL Metamyelocytes # (Man) (0) k/uL Nucleated RBCs (0-0) /100 WBC PT (9.0-12.0) sec INR (<1.2) APTT (22.0-30.0) sec Chloride 110 H (98-107) mmol/L Carbon Dioxide 21 L (21.6-31.8) mmol/L Anion Gap (4.00-12.00) mmol/L BUN 41 H (9.0-27.0) mg/dL BUN/Creatinine Ratio (12.00-20.00) Ratio Glucose 163 H (70-110) mg/dL Calcium (8.7-10.3) mg/dL AST (14-35) U/L Alkaline Phosphatase 235 H (41-126) U/L Total Protein 5.4 L (6.2-8.2) g/dL Albumin 2.9 L (3.8-4.9) g/dL Albumin/Globulin Ratio (1.60-3.17) g/dL Ur Specific [place] (1.001-1.035) Urine Ketones (Negative) Urine Blood (Negative) Urine Mucus (None) /hpf Crossmatch See Detail Diabetes panel 07/13/21 07/13/21 Range/Units 07:26 15:28 Sodium 139 137 (135-145) mmol/L Potassium 3.9 4.0 (3.5-5.5) mmol/L Chloride 107 110 H (96-109) mmol/L Carbon Dioxide 14.3 L 21 L (21.6-31.8) mmol/L BUN 42.2 H 41 H (9.0-27.0) mg/dL Creatinine 0.8 0.73 (0.6-1.5) mg/dL Glucose 147 H 163 H (70-110) mg/dL Calcium 8.4 L 8.8 (8.7-10.3) mg/dL AST 36 H 41 (14-35) U/L ALT 12 16 (10-49) U/L Alkaline Phosphatase 239 H 235 H (41-126) U/L Total Protein 4.9 L 5.4 L (6.2-8.2) g/dL Albumin 3.0 L 2.9 L (3.8-4.9) g/dL Calcium panel 07/13/21 07/13/21 Range/Units 07:26 15:28 Calcium 8.4 L 8.8 (8.7-10.3) mg/dL Albumin 3.0 L 2.9 L (3.8-4.9) g/dL Pituitary panel 07/13/21 07/13/21 Range/Units 07:26 15:28 Sodium 139 137 (135-145) mmol/L Potassium 3.9 4.0 (3.5-5.5) mmol/L Chloride 107 110 H (96-109) mmol/L Carbon Dioxide 14.3 L 21 L (21.6-31.8) mmol/L BUN 42.2 H 41 H (9.0-27.0) mg/dL Creatinine 0.8 0.73 (0.6-1.5) mg/dL Glucose 147 H 163 H (70-110) mg/dL Calcium 8.4 L 8.8 (8.7-10.3) mg/dL Adrenal panel 07/13/21 07/13/21 Range/Units 07:26 15:28 Sodium 139 137 (135-145) mmol/L Potassium 3.9 4.0 (3.5-5.5) mmol/L Chloride 107 110 H (96-109) mmol/L Carbon Dioxide 14.3 L 21 L (21.6-31.8) mmol/L BUN 42.2 H 41 H (9.0-27.0) mg/dL Creatinine 0.8 0.73 (0.6-1.5) mg/dL Glucose 147 H 163 H (70-110) mg/dL Calcium 8.4 L 8.8 (8.7-10.3) mg/dL Total Bilirubin 0.80 0.9 (0.30-1.20) mg/dL AST 36 H 41 (14-35) U/L ALT 12 16 (10-49) U/L Alkaline Phosphatase 239 H 235 H (41-126) U/L Total Protein 4.9 L 5.4 L (6.2-8.2) g/dL Albumin 3.0 L 2.9 L (3.8-4.9) g/dL - Imaging CT scan - abdomen: report reviewed CT scan - chest: report reviewed Assessment and Plan (1) Metastatic cancer Current Visit: Yes Status: Acute Code(s): C79.9 - SECONDARY MALIGNANT NEOPLASM OF UNSPECIFIED SITE SNOMED Code(s): 452705543 (2) Anemia Current Visit: Yes Status: Acute Code(s): D64.9 - ANEMIA, UNSPECIFIED SNOMED Code(s): 823558817 (3) Supratherapeutic INR Current Visit: Yes Status: Acute Priority: High Code(s): R79.1 - ABNORMAL COAGULATION PROFILE SNOMED Code(s): 060743593 Plan: We'll get a copy of his colonoscopy from [facility] in the morning. If the right colon looked unremarkable at that time, CT findings are likely more consistent with some stool on the colon wall. Positive Hemoccult and anemia likely due to coagulopathy from supratherapeutic Coumadin level. We'll follow and have further recommendations to follow
[2021-07-13] MEDS: TAMSULOSIN 0.4 MG CAP.ER.24H PO SCH (20:17)
[2021-07-13] MEDS: LORazepam 0.5 MG TAB PO PRN (20:17)
[2021-07-14] MEDS: BACLOFEN 10 MG TAB PO SCH ×4 (00:11→23:03)
[2021-07-14 01:57] LABS: Protein, Total 4.9 g/dL (6.2-8.2)
[2021-07-14] MEDS: CEFEPIME 2 GM in SODIUM CHLORIDE 0.9% 100 ML IVPB SCH ×3 (04:08→23:09)
[2021-07-14] MEDS: PANTOPRAZOLE 40 MG/10 ML VIAL IVP SCH ×2 (07:52→20:21)
[2021-07-14] MEDS: FERROUS SULFATE 325 MG TAB PO SCH (07:52)
[2021-07-14] MEDS: TAMSULOSIN 0.4 MG CAP.ER.24H PO SCH ×2 (07:52→20:21)
[2021-07-14] MEDS: METOPROLOL SUCCINATE (ER) 25 MG TAB.ER.24H PO SCH (07:52)
[2021-07-14] MEDS: HYDROmorphone 1 MG/ML 1 ML SYRINGE IVP PRN ×3 (07:53→18:48)
[2021-07-14 11:52] LABS: Alpha Fetoprotein, Tumor Mkr <1.82 ng/mL (0.00-7.90); Cancer Antigen 19-9 >10000.0 U/mL (0.0-34.9)
--- NOTE | 2021-07-14 12:00 | P.PN ---
Subjective Progress Note Date: 07/14/21 Principal diagnosis: Metastatic cancer of unknown origin This is a very pleasant 80-year-old male patient who follows with Dr. Garcia as his primary care provider. He has a history of atrial fibrillation anticoagulated with warfarin, BPH, recent lower back pain was following with a chiropractor without much improvement. On he had a CAT scan of the chest done in the outpatient setting for his worsening shortness of breath. He was found to have a left upper lobe pleural-based mass suspicious for malignancy. This is measuring 2.3 x 2.0. There were also small sub-3 mm pulmonary nodules in the left lower lobe. Right lung is clear. No greater than 1 cm hilar or mediastinal lymph nodes present. There were also findings compatible with metastatic disease to the liver as well as the thoracic segments. Difficult to exclude a left adrenal metastatic metastasis as well. A follow-up outpatient computed tomography scan of the abdomen was performed on 07/08/2021 that revealed small suspicious areas of mural thickening noted within adjacent lymph node or 2 involving the mid descending colon. Metastatic disease to the liver. Abnormal bony lucencies suspicious for metastatic disease to the distal thoracic spine, lumbar spine and sacrum pelvis and proximal femoral. Noted nodule of the left lung as well. Based on these findings he was referred to oncology and was seen in the office yesterday but was referred here to the emergency room for extreme weakness hypotension and hypoxemia. No PET scan done yet. No biopsies have been obtained yet. He was hypoxic and a CT angiogram ruled out pulmonary embolism. He is currently seen in the emergency room. He is currently resting fairly comfortable on the stretcher. Awake and alert in no acute distress. He is requiring 4 L nasal cannula to maintain O2 saturation in the low 90s. He is quite weak. Quite fatigued. He has had at least a 15 pound weight loss in the past several months. He has had ongoing issues with low back pain. White count 10.6. Hemoglobin 7.0. Initial INR 7.2. He did receive vitamin K 5 mg 1. Current INR 1.29. Platelets 233. Sodium 136. Potassium 4.5. Creatinine 0.97. Glucose 182. AST 44. ALT 20. Alk phos 276. Troponin negative 1. ProBNP 1600. Calcium 9.2. Coronavirus not detected. He's received 500 mL of fluid resuscitation. Currently on 0.9 normal sinus 75 ML's per hour. He was initiated on cefepime. The patient is seen today 07/14/2021 in follow-up on the oncology unit. He is currently resting in bed. He is having more episodes of confusion. He is maintaining O2 saturation in the mid 90s on 6 L/m per nasal cannula. Afebrile. Hemodynamically stable. White count 13.1. Hemoglobin 7.1. Sodium 137. Potassium 4.0. Creatinine 0.73. Glucose 163. AST 41. ALT 16. Alk phos 35. Total protein 5.4. Albumin 2.9. Pro-calcitonin 0.28. Stool for occult blood positive. Blood culture reveals no growth to date. MRI of the brain results are pending. Bone scan results are pending. He is currently on cefepime. 2 units of packed red blood cells were ordered per medicine. Warfarin remains on hold for possible liver biopsy in follow-up on 07/17/2021. CEA level 4286. Pro-calcitonin 0.28. Objective - Vital Signs Vital signs: Vital Signs Temp 98.9 F 07/14/21 02:00 Pulse 118 H 07/14/21 07:58 Resp 20 07/14/21 02:00 BP 115/64 07/14/21 07:58 Pulse Ox 95 07/14/21 02:00 Intake & Output 07/13/21 07/14/21 07/14/21 18:59 06:59 18:59 Intake Total 275 710 Balance 275 710 Intake: Intake, IV Titration 275 Amount Cefepime 2 gm In Sodium 50 Chloride 0.9% 100 ml @ 25 mls/hr IVPB Q8H KATIE Rx#: [id number] Sodium Chloride 0.9% 1, 225 000 ml @ 75 mls/hr IV . [id number] KATIE Rx#:[id number] Oral 400 Blood Product 0 310 Rc As-1 Unit 0 310 [id number] Other: # Voids 2 - Exam GENERAL EXAM: Alert, very pleasant 72-year-old gentleman, quite weak, confused at times, on 6 L nasal cannula, fairly comfortable in no apparent distress. HEAD: Normocephalic. EYES: Normal reaction of pupils, equal size. NOSE: Clear with pink turbinates. THROAT: No erythema or exudates. NECK: No masses, no JVD. CHEST: No chest wall deformity. LUNGS: Equal air entry with no crackles, wheeze, rhonchi or dullness. CVS: S1 and S2 normal with no audible murmur, regular rhythm. ABDOMEN: No hepatosplenomegaly, normal bowel sounds, no guarding or rigidity. SPINE: No scoliosis or deformity SKIN: No rashes CENTRAL NERVOUS SYSTEM: No focal deficits, tone is normal in all 4 extremities. EXTREMITIES: There is no peripheral edema. No clubbing, no cyanosis. Peripheral pulses are intact. - Labs CBC & Chem 7: 07/13/21 15:28 07/13/21 15:28 Labs: Abnormal Lab Results - Last 24 Hours (Table) 07/13/21 07/13/21 07/13/21 Range/Units 07:26 07:26 11:25 WBC (3.8-10.6) k/uL RBC (4.30-5.90) m/uL Hgb (13.0-17.5) gm/dL Hct (39.0-53.0) % RDW (11.5-15.5) % Neutrophils # (1.3-7.7) k/uL Chloride (98-107) mmol/L Carbon Dioxide 14.3 L (21.6-31.8) mmol/L Anion Gap 17.70 H (4.00-12.00) mmol/L BUN 42.2 H (9.0-27.0) mg/dL BUN/Creatinine Ratio 52.75 H (12.00-20.00) Ratio Glucose 147 H (70-110) mg/dL Calcium 8.4 L (8.7-10.3) mg/dL AST 36 H (14-35) U/L Alkaline Phosphatase 239 H (41-126) U/L Total Protein 4.9 L (6.2-8.2) g/dL Total Protein (PEP) (6.2-8.2) g/dL Albumin 3.0 L (3.8-4.9) g/dL Albumin/Globulin Ratio 1.58 L (1.60-3.17) g/dL Carcinoembryonic Ag 4286.0 H (0.0-4.9) ng/mL Procalcitonin (0.02-0.09) ng/mL Crossmatch See Detail 07/13/21 07/13/21 07/13/21 Range/Units 11:25 15:28 15:28 WBC 13.1 H (3.8-10.6) k/uL RBC 2.37 L (4.30-5.90) m/uL Hgb 7.1 L (13.0-17.5) gm/dL Hct 21.7 L (39.0-53.0) % RDW 18.7 H (11.5-15.5) % Neutrophils # 11.0 H (1.3-7.7) k/uL Chloride 110 H (98-107) mmol/L Carbon Dioxide 21 L (21.6-31.8) mmol/L Anion Gap (4.00-12.00) mmol/L BUN 41 H (9.0-27.0) mg/dL BUN/Creatinine Ratio (12.00-20.00) Ratio Glucose 163 H (70-110) mg/dL Calcium (8.7-10.3) mg/dL AST (14-35) U/L Alkaline Phosphatase 235 H (41-126) U/L Total Protein 5.4 L (6.2-8.2) g/dL Total Protein (PEP) 4.9 L (6.2-8.2) g/dL Albumin 2.9 L (3.8-4.9) g/dL Albumin/Globulin Ratio (1.60-3.17) g/dL Carcinoembryonic Ag (0.0-4.9) ng/mL Procalcitonin (0.02-0.09) ng/mL Crossmatch 07/13/21 Range/Units 15:28 WBC (3.8-10.6) k/uL RBC (4.30-5.90) m/uL Hgb (13.0-17.5) gm/dL Hct (39.0-53.0) % RDW (11.5-15.5) % Neutrophils # (1.3-7.7) k/uL Chloride (98-107) mmol/L Carbon Dioxide (21.6-31.8) mmol/L Anion Gap (4.00-12.00) mmol/L BUN (9.0-27.0) mg/dL BUN/Creatinine Ratio (12.00-20.00) Ratio Glucose (70-110) mg/dL Calcium (8.7-10.3) mg/dL AST (14-35) U/L Alkaline Phosphatase (41-126) U/L Total Protein (6.2-8.2) g/dL Total Protein (PEP) (6.2-8.2) g/dL Albumin (3.8-4.9) g/dL Albumin/Globulin Ratio (1.60-3.17) g/dL Carcinoembryonic Ag (0.0-4.9) ng/mL Procalcitonin 0.28 H (0.02-0.09) ng/mL Crossmatch Microbiology - Last 24 Hours (Table) 07/12/21 16:45 Blood Culture - Preliminary Blood No Growth after 24 hours 07/12/21 17:00 Blood Culture - Preliminary Blood No Growth after 24 hours Assessment and Plan Assessment: 1 Generalized weakness, fatigue, poor appetite and weight loss with shortness of breath secondary to metastatic cancer involving the lung, liver, bone, possible colon, and possible left adrenal gland. New diagnosis with initial CAT scans done 1 week ago. No biopsies thus far. No PET scan. MRI of the brain pending. Bone scan pending. Most likely FNA of the liver would be most beneficial. Warfarin remains on hold. Follow-up INR 1.29. CEA level 4286. 2 Hypercoagulopathy with presenting INR of 7.2 secondary to warfarin therapy and hepatic involvement month follow-up INR 1.29. 3 Acute hypoxic respiratory failure suspect secondary to anemia 4 Acute anemia, possible GI bleed, current hemoglobin 7.1, stool for occult blood positive. 2 units packed red blood cells ordered per medicine 5 Acute back pain suspect secondary to metastatic disease 6 Remote history of chronic tobacco dependence however quit back in the 1980s 7 Paroxysmal atrial fibrillation, anticoagulated with warfarin 8 BPH Plan: The patient was seen and evaluated by Dr. Blackwell Pending results of MRI of the brain, bone scan CEA level is elevated AFP, CA 199, PSA pending We will continue to follow and make further recommendations based on his clini katherine status I, the cosigning physician, performed a history & physical examination of the patient. Lungs sounds are clear. Maintaining good O2 saturations in the 90s on 6 L/m per nasal cannula. I discussed the assessment and plan of care with my nurse practitioner, Karen Mejia. I attest to the above note as dictated by her.
[2021-07-14] MEDS: SODIUM CHLORIDE 0.9% 1,000 ML IV SCH (12:09)
--- NOTE | 2021-07-14 12:12 | NM ---
EXAMINATION TYPE: NM bone scan whole body DATE OF EXAM: 07/14/2021 COMPARISON: CT 07/08/2021, 07/12/2021 HISTORY: Abnormal weight loss, lung cancer, abnormal CT, bone lesions Delayed whole-body scanning was performed following the injection of 24.1 mCi Tc 99m MDP. Images acq uired 3 hours post injection. FINDINGS: There are too numerous to count foci of increased uptake within the skeleton to include the bilateral upper and lower extremities, ribs, spine, shoulders, calvarium, pelvis and sternum. Tissue uptake is within normal limits. IMPRESSION: Metastatic disease.
[2021-07-14 13:23] LABS: Albumin 2.75 g/dL (3.80-4.90); Gamma Globulin 0.54 g/dL (0.70-1.50)
--- NOTE | 2021-07-14 13:51 | MR ---
EXAMINATION TYPE: MR brain wo/w con DATE OF EXAM: 07/13/2021 COMPARISON: CT brain 10/02/2019, bone scan 07/14/2021 HISTORY: Dizziness, hx of cancer TECHNIQUE: Multiplanar, multisequence images of the brain and brainstem is performed without and with IV contras t, utilizing 7.5 mL intravenous Gadavist . FINDINGS: Exam made available for interpretation on 14 July 2021. Diffusion weighted images demonstrate no evidence of a recent infarct or other diffusion abnormality. There is subarachnoid hemorrhage noted over the right cerebral convexity greater than the left, max imal thickness measures only approximately 2 to 3 mm. There are scattered and confluent hyperintensit ies and inversion recovery T2-weighted sequences within the subcortical, pericallosal, periventricula r white matter. The ventricular system and cisternal spaces are normal in size and appearance. The b rain volume is age appropriate. Midline structures demonstrate normal morphology. The craniocervical junction appears within normal limits. Post contrast images demonstrate nonspecific dural enhancement. The dural venous sinuses marilynn ear patent. The visualized sinuses are remarkable for inflammatory change in ethmoid air cells, maxil colin sinus on the right, and the globes are intact. There are some enhancing foci within the calvariu m which may represent metastatic disease. IMPRESSION: Subarachnoid hemorrhage. Nonspecific white matter demyelination. No enhancing mass within the brain. There is subarachnoid hemorrhage. Dr. Dionisio Méndez informed via perfect serve at the time of interpretation.
--- NOTE | 2021-07-14 13:54 | P.PN ---
Progress Note - Text Progress Note Date: 07/14/21 Report of the last colonoscopy was obtained from [facility]. The colonoscopy was incomplete. Endoscopist was not able to go further than the proximal descending colon due to tight angulation. The patient's bone scan shows significant metastatic disease. I do not feel a colonoscopy would be beneficial at this point. If he develops hemoptysis or significant GI bleeding an EGD could be performed. Recommend follow with oncology. Will be available as needed
--- NOTE | 2021-07-14 14:37 | P.PN ---
<Mary Burris A - Last Filed: 07/14/21 14:14> Subjective Progress Note Date: 07/14/21 80 years old a clinic patient of mine with past medical history of atrial fibrillation anticoagulated with Coumadin, BPH, prediabetes was seen in the clinic 2 weeks ago for the increased [id number] pound loss of weight and shortness of breath. Patient underwent workup including blood work, chest x-ray which was concerning for elevated liver enzymes. CXR was normal. Patient was complaining of significant left shoulder pain associated with chest pain associated with shortness of breath. CT chest, abdomen and pelvis was obtained as outpatient. CT chest was concerning for a left upper lobe pleural-based mass suspicion for malignancy with metastatic disease to the liver as well as visualized thoracic segment. 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 Once insurance approved CT abd, CT abdomen and pelvis showed suspicious area of mural thickening within the LN involving the mid ascending colon which was valle spicious for neoplasm. Metastatic disease to the liver, distal thoracic spine and lumbar spine and sacrum pelvis and proximal femoral was noted. Patient was scheduled for outpatient evaluation with oncology. Tumor markers were ordered and were pending. Over the past few days patient has become increasingly confused, short of breath, weak. at bedside stated patient is unable to walk due to increased weakness. He was seen by oncology office yesterday and was noted to be desaturating in the low 80s and was sent to the ER for evaluation. CT angiogram was obtained in the ER was negative for pulmonary embolism, left upper lobe mass 2.5 cm in size and multiple osteosclerotic and osteolytic changes were needed noted in the thoracic spine. White is in the ER temp of 98.4 tachycardic 110, respiratory rate 18 blood pressure 104/58 oxygen saturation 94% on 4 L. Labs are reviewed patient has leukocytosis of 14.4 hemoglobin 9.7 platelet 325 in and was noted to be 7.2, sodium 136 bicarb 20 1B UN 48 creatinine 0.93 alkaline phosphatase was elevated at 276 proBNP was 1600. Repeat labs this morning is suggestive of a drop in hemoglobin to 7 INR has improved to 1.9 with vitamin K given in the ER yesterday and i anion gap is increased to 17 UA was negative for infection stool occult was positive. CT chest was concerning for a left upper lobe pleural-based mass suspicion for malignancy with metastatic disease to the liver as well as visualized thoracic segment. 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 CT abdomen and pelvis was suggestive of response to suspicious area of mural thickening within the descending colon to involving the mid ascending colon which was suspicious for neoplasm. Metastatic disease to the liver, distal thoracic spine and lumbar spine and sacrum pelvis and proximal femoral was noted CT angiogram was obtained in the ER was negative for pulmonary embolism, left upper lobe mass 2.5 cm in size and multiple osteosclerotic and osteolytic changes were needed noted in the thoracic spine. 07/14: Patient is seen today on the Oncology Unit, Patient's is at bedside. She is concerned that the patient is unable to walk and get to the bathroom. PT and OT consults will be added. Patient is awake and more alert today. His pain control is improved. He is having some visual hallucinations. Patient states he has very minimal cough and denies shortness of breath. He is on oxygen at 6L n/c with PO 95%. He has been afebrile, heart rate 118, blood pressure 115/64. Repeat hemoglobin is 7.1 after 1 unit of packed RBCs and another unit will be ordered today. Alkaline phosphatase 235. Protein electrophoresis low at 4.9. Albumin electrophoresis low at 2.75. Gammaglobulins low at 0.54 and alpha-2 globulins low. No monoclonal paraprotein recognized. CA 199 is greater than 10,000. CEA 4286. Pro-calcitonin 0.28. Stool for occult blood positive. He has been seen by oncology with plan for interventional radiology for liver biopsy. MRI of the brain revealed subarachnoid hemorrhage. Nonspecific white matter de myelination. No enhancing mass within the brain. Bone scan reveals metastatic disease including the bilateral upper and lower extremities rib spines shoulder calvarium, pelvis and sternum. Patient has been seen by Dr. Jessica and patient's last colonoscopy [facility] was incomplete could not go further than the proximal descending colon due to tight angulation. No plan for colonoscopy at this point and will follow as needed. Discussed with oncology and Dr. Garcia will be back to discuss reports and plan with the patient and his . ROS Constitutional: Denies chills, Denies fever, endorses lethargy, endorses malaise, endorses poor appetite, endorses weakness, endorses weight loss Eyes: denies decreased vision, denies diplopia, denies discharge, denies pain Ears: deny: decreased hearing Ears, nose, mouth and throat: Denies dental pain, Denies headache, Denies nasal discharge Cardiovascular: Denies chest pain, Denies decreased exercise tolerance, Denies edema, Denies high blood pressure, Denies irregular heart beat, Denies palpitations, Denies paroxysmal nocturnal dyspnea, Denies rapid heart beat, Denies shortness of breath Respiratory: Denies congestion, Denies cough, Denies cough with sputum, endorses dyspnea, Denies home oxygen, Denies wheezing Gastrointestinal: Denies abdominal pain, Denies change in bowel habits, Denies coffee ground emesis, Denies early satiety, Denies heartburn, Denies hematemesis, Denies hematochezia, Denies loss of appetite, Denies nausea, Denies vomiting Genitourinary: Denies dysuria, Denies flank pain, Denies kidney stones, Denies menorrhagia, Denies urgency, Denies urinary frequency Musculoskeletal: Denies gait dysfunction, Denies limitation of motion, Denies morning stiffness, Denies muscle cramps Integumentary: Denies rash, Denies wounds, Denies brittle nails, Denies change in hair/nails, Denies darkening of skin Neurological: Denies balance difficulties, Denies change in speech, Denies double vision, reports gait dysfunction, Denies loss of vision, Denies motor disturbance, Denies numbness, Denies paralysis, Denies paresthesias, Denies seizures Psychiatric: increased anxiety, Denies depression area and reports hallucinations. Endocrine: Denies excessive sweating, Denies excessive thirst, Denies high blood sugars, Denies palpitations Hematologic/Lymphatic: Denies easy bruising, Denies lymphadenopathy Physical exam - Constitutional General appearance: cooperative, in no distress, frail looking Eyes: anicteric sclerae, PERRLA, normal appearance ENT: hearing grossly normal - Neck Neck: no lymphadenopathy, normal ROM, no other, no rigidity, no stridor, no thyromegaly - Respiratory Respiratory: bilateral: CTA, negative: diminished, dullness, rales, rhonchi - Cardiovascular Rhythm: Regular, front desk monitor sinus rhythm Heart sounds: normal: S1, S2 Abnormal Heart Sounds: no systolic murmur, no diastolic murmur, no rub, no S3 Gallop, no S4 Gallop, no click, no other - Gastrointestinal General gastrointestinal: normal bowel sounds, soft nontender - Integumentary Integumentary: no rash - Neurologic Neurologic: No motor or sensory deficits - Musculoskeletal Musculoskeletal: Increasingly weak, unable to ambulate - Psychiatric Psychiatric: A&O to person and place, appropriate affect Assessment and plan # acute metabolic encephalopathy secondary to subarachnoid bleed. Seizure precautions. # generalized weakness with increased ability secondary to metastasis. is unable to take care of patient at home. Patient may benefit from subacute rehab. PTOT for assessment # acute hypoxic respiratory failure PE ruled out. No consolidations noted on CT chest. 2.5 cm left-sided pleural lesion. Pro-calcitonin ordered continue cefepime 2 g every 8 hours # metastatic cancer with primary unknown most likely is secondary to colon cancer, possible pulmonary as primary. Consult with oncology appreciated. # acute anemia possible GI bleed, monitor hemoglobin, consult with Dr. Jessica appreciated. No plan for endosc, transfuse second unit of packed RBCs # Paroxysmal atrial fibrillation on Coumadin and metoprolol. Coumadin held because of concern for GI bleed. INR 7.2 on admission status was 5 mg vitamin K # coagulopathy secondary to cancer and Coumadin status post vitamin K 1 dose INR 1.29 now # acute back pain secondary to metastasis. diaudid 1 mg every 3 hours with [place] 5 every 6 hours. # prediabetes diabetic diet # Multiple liver metastasis. Consult for possible biopsy # CODE STATUS discussed with at bedside and patient. Agreed on full code. Has living willl that they will bring to the hospital # DVT prophylaxis with SCD as patient has ongoing GI bleed #GI prophylaxis with Protonix 40 twice a day prognosis guarded. DISCHARGE PLAN Home Impression and plan of care have been directed as dictated by the signing physician. Mary Burris nurse practitioner acting as scribe for signing physician. Objective - Vital Signs Vital signs: Vital Signs Temp 98.9 F 07/14/21 02:00 Pulse 118 H 07/14/21 07:58 Resp 20 07/14/21 02:00 BP 115/64 07/14/21 07:58 Pulse Ox 95 07/14/21 02:00 Intake & Output 07/13/21 07/14/21 07/14/21 18:59 06:59 18:59 Intake Total 275 710 Balance 275 710 Intake: Intake, IV Titration 275 Amount Cefepime 2 gm In Sodium 50 Chloride 0.9% 100 ml @ 25 mls/hr IVPB Q8H KATIE Rx#: [id number] Sodium Chloride 0.9% 1, 225 000 ml @ 75 mls/hr IV . [id number] KATIE Rx#:[id number] Oral 400 Blood Product 0 310 Rc As-1 Unit 0 310 [id number] Other: # Voids 2 - Labs CBC & Chem 7: 07/13/21 15:28 07/13/21 15:28 Labs: Abnormal Lab Results - Last 24 Hours (Table) 07/13/21 07/13/21 07/13/21 Range/Units 07:26 07:26 11:25 WBC (3.8-10.6) k/uL RBC (4.30-5.90) m/uL Hgb (13.0-17.5) gm/dL Hct (39.0-53.0) % RDW (11.5-15.5) % Neutrophils # (1.3-7.7) k/uL PT 13.8 H (9.9-11.9) sec INR 1.29 H (0.90-1.11) Chloride (98-107) mmol/L Carbon Dioxide 14.3 L (21.6-31.8) mmol/L Anion Gap 17.70 H (4.00-12.00) mmol/L BUN 42.2 H (9.0-27.0) mg/dL BUN/Creatinine Ratio 52.75 H (12.00-20.00) Ratio Glucose 147 H (70-110) mg/dL Calcium 8.4 L (8.7-10.3) mg/dL AST 36 H (14-35) U/L Alkaline Phosphatase 239 H (41-126) U/L Total Protein 4.9 L (6.2-8.2) g/dL Total Protein (PEP) (6.2-8.2) g/dL Albumin 3.0 L (3.8-4.9) g/dL Albumin/Globulin Ratio 1.58 L (1.60-3.17) g/dL Procalcitonin (0.02-0.09) ng/mL Crossmatch See Detail 07/13/21 07/13/21 07/13/21 Range/Units 11:25 15:28 15:28 WBC 13.1 H (3.8-10.6) k/uL RBC 2.37 L (4.30-5.90) m/uL Hgb 7.1 L (13.0-17.5) gm/dL Hct 21.7 L (39.0-53.0) % RDW 18.7 H (11.5-15.5) % Neutrophils # 11.0 H (1.3-7.7) k/uL PT (9.9-11.9) sec INR (0.90-1.11) Chloride 110 H (98-107) mmol/L Carbon Dioxide 21 L (21.6-31.8) mmol/L Anion Gap (4.00-12.00) mmol/L BUN 41 H (9.0-27.0) mg/dL BUN/Creatinine Ratio (12.00-20.00) Ratio Glucose 163 H (70-110) mg/dL Calcium (8.7-10.3) mg/dL AST (14-35) U/L Alkaline Phosphatase 235 H (41-126) U/L Total Protein 5.4 L (6.2-8.2) g/dL Total Protein (PEP) 4.9 L (6.2-8.2) g/dL Albumin 2.9 L (3.8-4.9) g/dL Albumin/Globulin Ratio (1.60-3.17) g/dL Procalcitonin (0.02-0.09) ng/mL Crossmatch 07/13/21 Range/Units 15:28 WBC (3.8-10.6) k/uL RBC (4.30-5.90) m/uL Hgb (13.0-17.5) gm/dL Hct (39.0-53.0) % RDW (11.5-15.5) % Neutrophils # (1.3-7.7) k/uL PT (9.9-11.9) sec INR (0.90-1.11) Chloride (98-107) mmol/L Carbon Dioxide (21.6-31.8) mmol/L Anion Gap (4.00-12.00) mmol/L BUN (9.0-27.0) mg/dL BUN/Creatinine Ratio (12.00-20.00) Ratio Glucose (70-110) mg/dL Calcium (8.7-10.3) mg/dL AST (14-35) U/L Alkaline Phosphatase (41-126) U/L Total Protein (6.2-8.2) g/dL Total Protein (PEP) (6.2-8.2) g/dL Albumin (3.8-4.9) g/dL Albumin/Globulin Ratio (1.60-3.17) g/dL Procalcitonin 0.28 H (0.02-0.09) ng/mL Crossmatch Microbiology - Last 24 Hours (Table) 07/12/21 16:45 Blood Culture - Preliminary Blood No Growth after 24 hours 07/12/21 17:00 Blood Culture - Preliminary Blood No Growth after 24 hours <Dominique Garcia - Last Filed: 07/14/21 16:30> Subjective Spoke to the family in length about prognosis. Due to decline in patient's functional status, patient's age, recent subarachnoid hemorrhage with metastatic cancer of unknown primary family is leaning towards hospice care. Consult for hospice will be placed once family decides about hospice care. Objective - Vital Signs Vital signs: Vital Signs Temp 98.1 F 07/14/21 15:10 Pulse 90 07/14/21 15:10 Resp 16 07/14/21 15:10 BP 98/64 07/14/21 15:10 Pulse Ox 96 07/14/21 15:10 Intake & Output 07/13/21 07/14/21 07/14/21 18:59 06:59 18:59 Intake Total 275 710 310 Balance 275 710 310 Intake: Intake, IV Titration 275 Amount Cefepime 2 gm In Sodium 50 Chloride 0.9% 100 ml @ 25 mls/hr IVPB Q8H KATIE Rx#: [id number] Sodium Chloride 0.9% 1, 225 000 ml @ 75 mls/hr IV . [id number] KATIE Rx#:[id number] Oral 400 Blood Product 0 310 310 Rc As-1 Unit 310 [id number] Rc As-1 Unit 0 310 [id number] Other: # Voids 2 - Labs CBC & Chem 7: 07/13/21 15:28 07/13/21 15:28 Labs: Abnormal Lab Results - Last 24 Hours (Table) 07/13/21 07/13/21 07/13/21 Range/Units 07:26 07:26 11:25 WBC (3.8-10.6) k/uL RBC (4.30-5.90) m/uL Hgb (13.0-17.5) gm/dL Hct (39.0-53.0) % RDW (11.5-15.5) % Neutrophils # (1.3-7.7) k/uL Chloride (98-107) mmol/L Carbon Dioxide (22-30) mmol/L BUN (9-20) mg/dL Glucose (74-99) mg/dL Alkaline Phosphatase (38-126) U/L Total Protein (6.3-8.2) g/dL Total Protein (PEP) (6.2-8.2) g/dL Albumin (3.5-5.0) g/dL Albumin (PEP) (3.80-4.90) g/dL Buhyu-2-Hudyccrcb (0.10-0.40) g/dL Locds-1-Yuhmovnxd (0.60-1.00) g/dL Gamma Globulins (0.70-1.50) g/dL Carcinoembryonic Ag 4286.0 H (0.0-4.9) ng/mL CA 19-9 Antigen >02594.0 H (0.0-34.9) U/mL Procalcitonin (0.02-0.09) ng/mL Crossmatch See Detail 07/13/21 07/13/21 07/13/21 Range/Units 11:25 15:28 15:28 WBC 13.1 H (3.8-10.6) k/uL RBC 2.37 L (4.30-5.90) m/uL Hgb 7.1 L (13.0-17.5) gm/dL Hct 21.7 L (39.0-53.0) % RDW 18.7 H (11.5-15.5) % Neutrophils # 11.0 H (1.3-7.7) k/uL Chloride 110 H (98-107) mmol/L Carbon Dioxide 21 L (22-30) mmol/L BUN 41 H (9-20) mg/dL Glucose 163 H (74-99) mg/dL Alkaline Phosphatase 235 H (38-126) U/L Total Protein 5.4 L (6.3-8.2) g/dL Total Protein (PEP) 4.9 L (6.2-8.2) g/dL Albumin 2.9 L (3.5-5.0) g/dL Albumin (PEP) 2.75 L (3.80-4.90) g/dL Dhqvo-9-Dhgtjnhub 0.43 H (0.10-0.40) g/dL Xhwvg-2-Peeioadug 0.52 L (0.60-1.00) g/dL Gamma Globulins 0.54 L (0.70-1.50) g/dL Carcinoembryonic Ag (0.0-4.9) ng/mL CA 19-9 Antigen (0.0-34.9) U/mL Procalcitonin (0.02-0.09) ng/mL Crossmatch 07/13/21 Range/Units 15:28 WBC (3.8-10.6) k/uL RBC (4.30-5.90) m/uL Hgb (13.0-17.5) gm/dL Hct (39.0-53.0) % RDW (11.5-15.5) % Neutrophils # (1.3-7.7) k/uL Chloride (98-107) mmol/L Carbon Dioxide (22-30) mmol/L BUN (9-20) mg/dL Glucose (74-99) mg/dL Alkaline Phosphatase (38-126) U/L Total Protein (6.3-8.2) g/dL Total Protein (PEP) (6.2-8.2) g/dL Albumin (3.5-5.0) g/dL Albumin (PEP) (3.80-4.90) g/dL Rqsey-6-Dshmjdjxa (0.10-0.40) g/dL Fgayi-4-Cbuysjgby (0.60-1.00) g/dL Gamma Globulins (0.70-1.50) g/dL Carcinoembryonic Ag (0.0-4.9) ng/mL CA 19-9 Antigen (0.0-34.9) U/mL Procalcitonin 0.28 H (0.02-0.09) ng/mL Crossmatch Microbiology - Last 24 Hours (Table) 07/12/21 16:45 Blood Culture - Preliminary Blood No Growth after 24 hours 07/12/21 17:00 Blood Culture - Preliminary Blood No Growth after 24 hours
--- NOTE | 2021-07-14 19:35 | P.PN ---
Subjective Progress Note Date: 07/14/21 Principal diagnosis: Metastatic Cancer and subarch bleed MRI of the brain revealed 2-3MM subarchanoid hemorrhage, bone scan also with diffuse involvement and Ca19-9 and CEA quite elevated Long discussion with patient and and son Justin today Objective - Vital Signs Vital signs: Vital Signs Temp 98.5 F 07/14/21 16:39 Pulse 107 H 07/14/21 16:39 Resp 16 07/14/21 16:39 BP 124/68 07/14/21 16:39 Pulse Ox 92 L 07/14/21 16:39 Intake & Output 07/13/21 07/14/21 07/14/21 18:59 06:59 18:59 Intake Total 174 859 3907 Balance 919 029 5222 Intake: Intake, IV Titration 275 1000 Amount Cefepime 2 gm In Sodium 50 100 Chloride 0.9% 100 ml @ 25 mls/hr IVPB Q8H KATIE Rx#: [id number] Sodium Chloride 0.9% 1, 225 900 000 ml @ 75 mls/hr IV . [id number] KATIE Rx#:[id number] Oral 400 Blood Product 0 310 310 Rc As-1 Unit 310 [id number] Rc As-1 Unit 0 310 [id number] Other: # Voids 2 1 - Exam lethargic, in and out of sleep. NAD Eccymosis on extremities Lungs: DIminished anterior Heart Irr Abdomen tender, soft - Labs CBC & Chem 7: 07/13/21 15:28 07/13/21 15:28 Labs: Abnormal Lab Results - Last 24 Hours (Table) 07/13/21 07/13/21 07/13/21 Range/Units 07:26 07:26 11:25 Total Protein (PEP) (6.2-8.2) g/dL Albumin (PEP) (3.80-4.90) g/dL Kvwks-5-Rkgzlkvwq (0.10-0.40) g/dL Wuzsb-3-Skgudzjqo (0.60-1.00) g/dL Gamma Globulins (0.70-1.50) g/dL Carcinoembryonic Ag 4286.0 H (0.0-4.9) ng/mL CA 19-9 Antigen >49775.0 H (0.0-34.9) U/mL Procalcitonin (0.02-0.09) ng/mL Crossmatch See Detail 07/13/21 07/13/21 Range/Units 11:25 15:28 Total Protein (PEP) 4.9 L (6.2-8.2) g/dL Albumin (PEP) 2.75 L (3.80-4.90) g/dL Cajbx-2-Mzqojpddi 0.43 H (0.10-0.40) g/dL Wjpeh-7-Yikdzzfkp 0.52 L (0.60-1.00) g/dL Gamma Globulins 0.54 L (0.70-1.50) g/dL Carcinoembryonic Ag (0.0-4.9) ng/mL CA 19-9 Antigen (0.0-34.9) U/mL Procalcitonin 0.28 H (0.02-0.09) ng/mL Crossmatch Microbiology - Last 24 Hours (Table) 07/12/21 16:45 Blood Culture - Preliminary Blood No Growth after 24 hours 07/12/21 17:00 Blood Culture - Preliminary Blood No Growth after 24 hours Assessment and Plan (1) Subarachnoid bleed Current Visit: Yes Status: Acute Code(s): I60.9 - NONTRAUMATIC SUBARACHNOID HEMORRHAGE, UNSPECIFIED SNOMED Code(s): 739449808 (2) CA19-9 above reference range Current Visit: Yes Status: Acute Code(s): BVS4300 - SNOMED Code(s): 73325437220285283 (3) Elevated CEA Current Visit: Yes Status: Acute Code(s): R97.0 - ELEVATED CARCINOEMBRYONIC ANTIGEN [CEA] SNOMED Code(s): 115672138 (4) Normocytic anemia Current Visit: Yes Status: Acute Code(s): D64.9 - ANEMIA, UNSPECIFIED SNOMED Code(s): 783279838 Plan: Very long discussion with patient, Son, and . Case also discussed with neurosurgeon at [facility] Dr. Justice regarding subarachnoid hemorrage. The full picture appears patient has a very aggressive malignancy (evidenced by imaging and significant elevation in CA19-9 and CEA). They have been given multiple options: Aggressive approach, moderate approach with risks (monitor bleed while staying here and plan for biopsy of liver next week) or home with palliaitive or hospice care for a more comfort only approach. - All risks and benefits of each was provided - All questions have been answered thoroughly for patient's family PLan: - They will decide on whether to move forward with biopsy inpatient this weekend, however they have decided to not move firward with RO transfer. They understand the risk of herniation and are willing to proceed with denial of transfer. - Will recheck CBC tonight and recheck labs in am for supportive transfusions Physician Attest: I have completed the full history and physical and agree with above dictation, dictated as a ascribe.
[2021-07-14 20:22] LABS: Anisocytosis Slight; Basophils # (A) 0.1 k/uL (0-0.2); Basophils % (A) 1 %; Eosinophils # (A) 0.1 k/uL (0-0.7); Eosinophils % (A) 1 %; HCT 23.5 % (39.0-53.0); HGB 7.6 gm/dL (13.0-17.5); Lymphocytes # (A) 1.5 k/uL (1.0-4.8); Lymphocytes % (A) 12 %; MCH 29.3 pg (25.0-35.0); MCHC 32.4 g/dL (31.0-37.0); MCV 90.5 fL (80.0-100.0); Mean Platelet Volume 7.5; Monocytes # (A) 0.6 k/uL (0-1.0); Monocytes % (A) 5 %; Neutrophils # (A) 9.8 k/uL (1.3-7.7); Neutrophils % (A) 80 %; Platelet Count 168 k/uL (150-450); Poikilocytosis Moderate; RDW 18.1 % (11.5-15.5); WBC 12.3 k/uL (3.8-10.6)
[2021-07-14 21:13] LABS: Poikilocytosis (M) Present; Polychromasia Present
[2021-07-15] MEDS: SODIUM CHLORIDE 0.9% 1,000 ML IV SCH ×2 (03:20→18:37)
[2021-07-15 04:13] LABS: Glucose,Whole Blood 148 mg/dL (75-99)
[2021-07-15] MEDS ORDERED: SODIUM CHLORIDE 0.9% 500 ML 500 ML IV ONE (04:19)
[2021-07-15 04:49] LABS: ALT 17 U/L (4-49); AST 62 U/L (17-59); African American GFR (CKD) >90 (>60 ml/min/1.73 sqM); Albumin 2.5 g/dL (3.5-5.0); Alkaline Phosphatase 379 U/L (38-126); Anion Gap 11 mmol/L; Blood Urea Nitrogen 26 mg/dL (9-20); Calcium 9.3 mg/dL (8.4-10.2); Carbon Dioxide 14 mmol/L (22-30); Chloride 113 mmol/L (98-107); Globulin 2.5 g/dL; Glucose 201 mg/dL (74-99); Non-African American GFR(CKD) 86 (>60 ml/min/1.73 sqM); Potassium 4.2 mmol/L (3.5-5.1); Sodium 138 mmol/L (137-145); Total Bilirubin 1.2 mg/dL (0.2-1.3)
--- NOTE | 2021-07-15 04:49 | XR ---
EXAMINATION TYPE: XR chest 1V portable DATE OF EXAM: 07/15/2021 COMPARISON: 07/12/2021 HISTORY: Short of breath TECHNIQUE: FINDINGS: Heart size is fairly normal. There is coarsening of the interstitial markings. There are ch est leads. There is no pleural effusion. IMPRESSION: There is some mild pulmonary interstitial pneumonia which is new compared to recent exam. .
[2021-07-15 04:51] LABS: ABG Base Excess -8.4 mmol/L; ABG HCO3 17 mmol/L (21-25); ABG Oxygen Saturation 95.4 % (94-97); ABG PCO2 30 mmHg (35-45); ABG PH 7.37 (7.35-7.45); ABG PO2 73 mmHg (83-108); ABG TCO2 18 mmol/L (19-24); Allen Test Performed? Yes
[2021-07-15 05:01] LABS: INR 1.1 (<1.2); Prothrombin Time 11.2 sec (9.0-12.0)
[2021-07-15 05:04] LABS: Glucose,Whole Blood 175 mg/dL (75-99)
[2021-07-15 05:04] LABS: Anisocytosis Slight; HCT 24.7 % (39.0-53.0); HGB 7.8 gm/dL (13.0-17.5); Hypochromasia Slight; MCH 28.9 pg (25.0-35.0); MCHC 31.6 g/dL (31.0-37.0); MCV 91.6 fL (80.0-100.0); Mean Platelet Volume 8.5; Platelet Count 176 k/uL (150-450); Poikilocytosis Moderate
--- NOTE | 2021-07-15 05:19 | P.PN ---
Progress Note - Text Progress Note Date: 07/15/21 A team note Activated at 4:13 AM. Arrived in the scene shortly after. Reviewed the chart and discussed the case in detail with the RN. 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 The patient was also found to have a subarachnoid hemorrhage yesterday on brain MRI for which the family opted for no transfer and to proceed with mass biopsy and further cancer treatments. Overnight, the patient's breathing gradually worsened and he was on 6 L NC which he kept taking off. The patient was then found by the RN to be minimally responsive, at which time the A team was activated. Patient had and SpO2 of 71% and was in A. fib with RVR with pulse 144. A nonrebreather mask was placed. The patient was seen at the bedside and examined. Discussed the case with the patient's sons at the bedside who noted that they would like to wait for the patient's to arrive as she makes most of the decisions with regards to his health. With the nonrebreather mask, the patient's SpO2 increased to 100% with pulse 114 and BP 120/73. General: Non-toxic, in moderate respiratory distress, appears stated age, normal weight HEENT: NC/AT, anicteric sclerae, moist conjunctiva, no lid-lag, PERRLA Cardiovascular: S1/S2 wnl, no murmurs, rubs, or gallops Lungs: Bibasilar crackles noted, with increased work of breathing with sternal retractions and abdominal breathing noted Abdominal: Soft, non-tender, non-distended, no guarding, rebound, or rigidity Skin: Warm, dry Extremities: No edema or contractures Psychiatric: Lethargic, answering some questions, oriented only to self Neuro: Moving all extremities, no gross focal deficits noted Assessment/plan Acute hypoxic respiratory failure, likely multifactorial with malignancy and possible pulmonary embolus -ABG obtained -Checks x-ray reviewed -Patient at high risk for respiratory failure requiring intubation -Hold off on CT angiogram for possible PE as the patient has a recently diagnosed subarachnoid hemorrhage -Transfer patient to medical ICU -Laboratory evaluation ordered -Primary team notified by the RN -Video Library Assistant notified by [facility] NURSE
[2021-07-15 05:58] LABS: Band Neutrophils % 3 %; Neutrophils % (M) 64 %; Nucleated Red Blood Cells 3 /100 WBC (0-0); Total Cells Counted 200
[2021-07-15 06:01] LABS: Eosinophils # (M) 0.18 k/uL (0-0.7); Lymphocytes # (M) 5.31 k/uL (1.0-4.8); Monocytes # (M) 0.55 k/uL (0-1.0); WBC 18.3 k/uL (3.8-10.6)
[2021-07-15 06:02] LABS: Anisocytosis (M) Present; Poikilocytosis (M) Present; Polychromasia Present; RBC Fragments Present
[2021-07-15] MEDS ORDERED: ONDANSETRON 4 MG/2 ML VIAL IVP PRN (08:41)
[2021-07-15] MEDS: BACLOFEN 10 MG TAB PO SCH ×3 (10:16→20:42)
[2021-07-15] MEDS: FERROUS SULFATE 325 MG TAB PO SCH (10:17)
[2021-07-15] MEDS: METOPROLOL SUCCINATE (ER) 25 MG TAB.ER.24H PO SCH (10:17)
[2021-07-15] MEDS: PANTOPRAZOLE 40 MG/10 ML VIAL IVP SCH ×2 (10:17→20:42)
[2021-07-15] MEDS: TAMSULOSIN 0.4 MG CAP.ER.24H PO SCH ×2 (10:17→20:42)
[2021-07-15] MEDS: CEFEPIME 2 GM in SODIUM CHLORIDE 0.9% 100 ML IVPB SCH ×3 (10:19→23:56)
--- NOTE | 2021-07-15 12:05 | P.PN ---
Subjective Progress Note Date: 07/15/21 80 years old a clinic patient of mine with past medical history of atrial fibrillation anticoagulated with Coumadin, BPH, prediabetes was seen in the clinic 2 weeks ago for the increased [id number] pound loss of weight and shortness of breath. Patient underwent workup including blood work, chest x-ray which was concerning for elevated liver enzymes. CXR was normal. Patient was complaining of significant left shoulder pain associated with chest pain associated with shortness of breath. CT chest, abdomen and pelvis was obtained as outpatient. CT chest was concerning for a left upper lobe pleural-based mass suspicion for malignancy with metastatic disease to the liver as well as visu alized thoracic segment. 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 Once insurance approved CT abd, CT abdomen and pelvis showed suspicious area of mural thickening within the LN involving the mid ascending colon which was suspicious for neoplasm. Metastatic disease to the liver, distal thoracic spine and lumbar spine and sacrum pelvis and proximal femoral was noted. Patient was scheduled for outpatient evaluation with oncology. Tumor markers were ordered and were pending. Over the past few days patient has become increasingly confused, short of breath, weak. at bedside stated patient is unable to walk due to increased weakness. He was seen by oncology office yesterday and was noted to be desaturating in the low 80s and was sent to the ER for evaluation. CT angiogram was obtained in the ER was negative for pulmonary embolism, left upper lobe mass 2.5 cm in size and multiple osteosclerotic and osteolytic changes were needed noted in the thoracic spine. White is in the ER temp of 98.4 tachycardic 110, respiratory rate 18 blood pressure 104/58 oxygen saturation 94% on 4 L. Labs are reviewed patient has leukocytosis of 14.4 hemoglobin 9.7 platelet 325 in and was noted to be 7.2, sodium 136 bicarb 20 1B UN 48 creatinine 0.93 alkaline phosphatase was elevated at 276 proBNP was 1600. Repeat labs this morning is suggestive of a drop in hemoglobin to 7 INR has improved to 1.9 with vitamin K given in the ER yesterday and i anion gap is increased to 17 UA was negative for infection stool occult was positive. CT chest was concerning for a left upper lobe pleural-based mass suspicion for malignancy with metastatic disease to the liver as well as visualized thoracic segment. 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 CT abdomen and pelvis was suggestive of response to suspicious area of mural thickening within the descending colon to involving the mid ascending colon which was suspicious for neoplasm. Metastatic disease to the liver, distal thoracic spine and lumbar spine and sacrum pelvis and proximal femoral was noted CT angiogram was obtained in the ER was negative for pulmonary embolism, left upper lobe mass 2.5 cm in size and multiple osteosclerotic and osteolytic changes were needed noted in the thoracic spine. 07/14: Patient is seen today on the Oncology Unit, Patient's is at bedside. She is concerned that the patient is unable to walk and get to the bathroom. PT and OT consults will be added. Patient is awake and more alert today. His pain control is improved. He is having some visual hallucinations. Patient states he has very minimal cough and denies shortness of breath. He is on oxygen at 6L n/c with PO 95%. He has been afebrile, heart rate 118, blood pressure 115/64. Repeat hemoglobin is 7.1 after 1 unit of packed RBCs and another unit will be ordered today. Alkaline phosphatase 235. Protein electrophoresis low at 4.9. Albumin electrophoresis low at 2.75. Gammaglobulins low at 0.54 and alpha-2 globulins low. No monoclonal paraprotein recognized. CA 199 is greater than 10,000. CEA 4286. Pro-calcitonin 0.28. Stool for occult blood positive. He has been seen by oncology with plan for interventional radiology for liver biopsy. MRI of the brain revealed subarachnoid hemorrhage. Nonspecific white matter demyelination. No enhancing mass within the brain. Bone scan reveals metastatic disease including the bilateral upper and lower extremities rib spines shoulder calvarium, pelvis and sternum. Patient has been seen by Dr. Jessica and patient's last colonoscopy [facility] was incomplete could not go further than the proximal descending colon due to tight angulation. No plan for colonoscopy at this point and will follow as needed. Discussed with oncology and Dr. Garcia will be back to discuss reports and plan with the patient and his . 07/15: Patient was evaluated in the intensive care unit. Apparently in the night and a team was called as patient was found unresponsive. Improved with oxygen therapy and was transferred to intensive care. This morning patient is alert to person and situation. Chest x-ray showed mild pulmonary interstitial pneumonia, new compared to recent exam. White blood cells increased at 18.3, hemoglobin 7.8, INR 1.1, BUN 26, creatinine 0.79 alk phos 379. was at bedside this morning and did have a discussion about prognosis. Patient is afebrile, pulse 96, blood pressure 106/53, pulse ox 94% on 13 L high flow nasal cannula. He continues on cefepime IV. Pain is under control with Lamar and Dilaudid when necessary. ROS Constitutional: Denies chills, Denies fever, endorses lethargy, endorses malaise, endorses poor appetite, endorses weakness, endorses weight loss Eyes: denies decreased vision, denies diplopia, denies discharge, denies pain Ears: deny: decreased hearing Ears, nose, mouth and throat: Denies dental pain, Denies headache, Denies nasal discharge Cardiovascular: Denies chest pain, Denies decreased exercise tolerance, Denies edema, Denies high blood pressure, Denies irregular heart beat, Denies palpitations, Denies paroxysmal nocturnal dyspnea, Denies rapid heart beat, Denies shortness of breath Respiratory: Denies congestion, Denies cough, Denies cough with sputum, endorses dyspnea, Denies home oxygen, Denies wheezing Gastrointestinal: Denies abdominal pain, Denies change in bowel habits, Denies coffee ground emesis, Denies early satiety, Denies heartburn, Denies hematemesis, Denies hematochezia, Denies loss of appetite, Denies nausea, Denies vomiting Genitourinary: Denies dysuria, Denies flank pain, Denies kidney stones, Denies menorrhagia, Denies urgency, Denies urinary frequency Musculoskeletal: Denies gait dysfunction, Denies limitation of motion, Denies morning stiffness, Denies muscle cramps. Generalized pain. Integumentary: Denies rash, Denies wounds, Denies brittle nails, Denies change in hair/nails, Denies darkening of skin Neurological: Denies balance difficulties, Denies change in speech, Denies double vision, reports gait dysfunction, Denies loss of vision, Denies motor disturbance, Denies numbness, Denies paralysis, Denies paresthesias, Denies seizures Psychiatric: increased anxiety, Denies depression area and reports hallucinations. Endocrine: Denies excessive sweating, Denies excessive thirst, Denies high blood sugars, Denies palpitations Hematologic/Lymphatic: Denies easy bruising, Denies lymphadenopathy Physical exam - Constitutional General appearance: cooperative, in mild distress. Eyes: anicteric sclerae, PERRLA, normal appearance ENT: hearing grossly normal - Neck Neck: no lymphadenopathy, normal ROM, no other, no rigidity, no stridor, no thyromegaly - Respiratory Respiratory: bilateral: Diminished with crackles at bases - Cardiovascular Rhythm: Regular, alarm security or surveillance monitor sinus rhythm Heart sounds: normal: S1, S2 Abnormal Heart Sounds: no systolic murmur, no diastolic murmur, no rub, no S3 Gallop, no S4 Gallop, no click, no other - Gastrointestinal General gastrointestinal: normal bowel sounds, soft nontender - Integumentary Integumentary: no rash - Neurologic Neurologic: No motor or sensory deficits - Musculoskeletal Musculoskeletal: Increasingly weak, unable to ambulate - Psychiatric Psychiatric: A&O to person and place, appropriate affect Assessment and plan # acute metabolic encephalopathy secondary to subarachnoid bleed. Seizure precautions. # generalized weakness with increased ability secondary to metastasis. is unable to take care of patient at home. Patient may benefit from subacute rehab. PTOT for assessment # acute hypoxic respiratory failure PE ruled out. No consolidations noted on CT chest. 2.5 cm left-sided pleural lesion. Pro-calcitonin elevated at 0.28, continue cefepime 2 g every 8 hours and pulmonary consult appreciated. # metastatic cancer with primary unknown most likely is secondary to colon cancer, possible pulmonary as primary. Consult with oncology appreciated. # acute anemia possible GI bleed, monitor hemoglobin, consult with Dr. Jessica appreciated. No plan for endoscopy, transfuse second unit of packed RBCs, continue to monitor CBC # Paroxysmal atrial fibrillation on Coumadin and metoprolol. Coumadin held because of concern for GI bleed. INR 7.2 on admission status was 5 mg vitamin K # coagulopathy secondary to cancer and Coumadin status post vitamin K 1 dose I NR 1.1 now # acute back pain secondary to metastasis. diaudid 1 mg every 3 hours with Lamar 5 every 6 hours. # prediabetes diabetic diet # Multiple liver metastasis. Consult for possible biopsy # CODE STATUS discussed with at bedside and patient. Patient was changed to DO NOT RESUSCITATE. # DVT prophylaxis with SCD as patient has ongoing GI bleed #GI prophylaxis with Protonix 40 twice a day prognosis guarded. DISCHARGE PLAN: To be determined pending course. Impression and plan of care have been directed as dictated by the signing physician. Kaylee Delgado nurse practitioner acting as scribe for signing physician. Objective - Vital Signs Vital signs: Vital Signs Temp 97.6 F 07/15/21 05:30 Pulse 96 07/15/21 07:00 Resp 14 07/15/21 07:00 BP 106/53 07/15/21 07:00 Pulse Ox 94 L 07/15/21 07:00 Intake & Output 07/14/21 07/15/21 07/15/21 18:59 06:59 18:59 Intake Total 1310 500 75 Output Total 245 30 Balance 1310 255 45 Intake: IV 500 75 Sodium Chloride 0.9% 500 500 75 ml 500 ml @ 999 mls/hr IV .Q31M [facility] Rx#:[id number] Intake, IV Titration 1000 Amount Cefepime 2 gm In Sodium 100 Chloride 0.9% 100 ml @ 25 mls/hr IVPB Q8H [facility] Rx#: [id number] Sodium Chloride 0.9% 1, 900 000 ml @ 75 mls/hr IV . [id number] [facility] Rx#:[id number] Blood Product 310 Rc As-1 Unit 310 [id number] Output: Urine 245 30 Other: Voiding Method Indwelling Catheter # Voids 1 1 - Labs CBC & Chem 7: 07/15/21 04:15 07/15/21 04:19 Labs: Abnormal Lab Results - Last 24 Hours (Table) 07/13/21 07/13/21 07/13/21 Range/Units 07:26 07:26 11:25 WBC (3.8-10.6) k/uL RBC (4.30-5.90) m/uL Hgb (13.0-17.5) gm/dL Hct (39.0-53.0) % RDW (11.5-15.5) % Neutrophils # (1.3-7.7) k/uL Neutrophils # (Manual) (1.3-7.7) k/uL Lymphocytes # (Manual) (1.0-4.8) k/uL Nucleated RBCs (0-0) /100 WBC APTT (22.0-30.0) sec ABG pCO2 (35-45) mmHg ABG pO2 (83-108) mmHg ABG HCO3 (21-25) mmol/L ABG Total CO2 (19-24) mmol/L Chloride (98-107) mmol/L Carbon Dioxide (22-30) mmol/L BUN (9-20) mg/dL Glucose (74-99) mg/dL POC Glucose (mg/dL) (75-99) mg/dL Plasma Lactic Acid Chao (0.7-2.0) mmol/L AST (17-59) U/L Alkaline Phosphatase (38-126) U/L Total Protein (6.3-8.2) g/dL Albumin (3.5-5.0) g/dL Albumin (PEP) (3.80-4.90) g/dL Uoeyj-5-Spkthwbng (0.10-0.40) g/dL Keyfo-1-Psrobgbjw (0.60-1.00) g/dL Gamma Globulins (0.70-1.50) g/dL Carcinoembryonic Ag 4286.0 H (0.0-4.9) ng/mL CA 19-9 Antigen >59113.0 H (0.0-34.9) U/mL Crossmatch See Detail 07/13/21 07/14/21 07/15/21 Range/Units 11:25 19:52 04:12 WBC 12.3 H (3.8-10.6) k/uL RBC 2.60 L (4.30-5.90) m/uL Hgb 7.6 L (13.0-17.5) gm/dL Hct 23.5 L (39.0-53.0) % RDW 18.1 H (11.5-15.5) % Neutrophils # 9.8 H (1.3-7.7) k/uL Neutrophils # (Manual) (1.3-7.7) k/uL Lymphocytes # (Manual) (1.0-4.8) k/uL Nucleated RBCs (0-0) /100 WBC APTT (22.0-30.0) sec ABG pCO2 (35-45) mmHg ABG pO2 (83-108) mmHg ABG HCO3 (21-25) mmol/L ABG Total CO2 (19-24) mmol/L Chloride (98-107) mmol/L Carbon Dioxide (22-30) mmol/L BUN (9-20) mg/dL Glucose (74-99) mg/dL POC Glucose (mg/dL) 148 H (75-99) mg/dL Plasma Lactic Acid Chao (0.7-2.0) mmol/L AST (17-59) U/L Alkaline Phosphatase (38-126) U/L Total Protein (6.3-8.2) g/dL Albumin (3.5-5.0) g/dL Albumin (PEP) 2.75 L (3.80-4.90) g/dL Jsdzv-5-Erkzhfdxh 0.43 H (0.10-0.40) g/dL Edbjw-6-Qcirgkkfn 0.52 L (0.60-1.00) g/dL Gamma Globulins 0.54 L (0.70-1.50) g/dL Carcinoembryonic Ag (0.0-4.9) ng/mL CA 19-9 Antigen (0.0-34.9) U/mL Crossmatch 07/15/21 07/15/21 07/15/21 Range/Units 04:15 04:15 04:15 WBC 18.3 H (3.8-10.6) k/uL RBC 2.70 L (4.30-5.90) m/uL Hgb 7.8 L (13.0-17.5) gm/dL Hct 24.7 L (39.0-53.0) % RDW 19.0 H (11.5-15.5) % Neutrophils # (1.3-7.7) k/uL Neutrophils # (Manual) 12.20 H (1.3-7.7) k/uL Lymphocytes # (Manual) 5.31 H (1.0-4.8) k/uL Nucleated RBCs 3 H (0-0) /100 WBC APTT 21.0 L (22.0-30.0) sec ABG pCO2 (35-45) mmHg ABG pO2 (83-108) mmHg ABG HCO3 (21-25) mmol/L ABG Total CO2 (19-24) mmol/L Chloride (98-107) mmol/L Carbon Dioxide (22-30) mmol/L BUN (9-20) mg/dL Glucose (74-99) mg/dL POC Glucose (mg/dL) (75-99) mg/dL Plasma Lactic Acid Chao 7.5 H* (0.7-2.0) mmol/L AST (17-59) U/L Alkaline Phosphatase (38-126) U/L Total Protein (6.3-8.2) g/dL Albumin (3.5-5.0) g/dL Albumin (PEP) (3.80-4.90) g/dL Adadd-4-Csutaoqls (0.10-0.40) g/dL Whslz-8-Vnhymvato (0.60-1.00) g/dL Gamma Globulins (0.70-1.50) g/dL Carcinoembryonic Ag (0.0-4.9) ng/mL CA 19-9 Antigen (0.0-34.9) U/mL Crossmatch 07/15/21 07/15/21 07/15/21 Range/Units 04:19 04:45 05:01 WBC (3.8-10.6) k/uL RBC (4.30-5.90) m/uL Hgb (13.0-17.5) gm/dL Hct (39.0-53.0) % RDW (11.5-15.5) % Neutrophils # (1.3-7.7) k/uL Neutrophils # (Manual) (1.3-7.7) k/uL Lymphocytes # (Manual) (1.0-4.8) k/uL Nucleated RBCs (0-0) /100 WBC APTT (22.0-30.0) sec ABG pCO2 30 L (35-45) mmHg ABG pO2 73 L (83-108) mmHg ABG HCO3 17 L (21-25) mmol/L ABG Total CO2 18 L (19-24) mmol/L Chloride 113 H (98-107) mmol/L Carbon Dioxide 14 L (22-30) mmol/L BUN 26 H (9-20) mg/dL Glucose 201 H (74-99) mg/dL POC Glucose (mg/dL) 175 H (75-99) mg/dL Plasma Lactic Acid Chao (0.7-2.0) mmol/L AST 62 H (17-59) U/L Alkaline Phosphatase 379 H (38-126) U/L Total Protein 5.0 L (6.3-8.2) g/dL Albumin 2.5 L (3.5-5.0) g/dL Albumin (PEP) (3.80-4.90) g/dL Ynega-8-Yivtxuogl (0.10-0.40) g/dL Irsnk-8-Vpfrrcdrw (0.60-1.00) g/dL Gamma Globulins (0.70-1.50) g/dL Carcinoembryonic Ag (0.0-4.9) ng/mL CA 19-9 Antigen (0.0-34.9) U/mL Crossmatch Microbiology - Last 24 Hours (Table) 07/12/21 17:00 Blood Culture - Preliminary Blood No Growth after 48 hours 07/12/21 16:45 Blood Culture - Preliminary Blood No Growth after 48 hours
[2021-07-15] MEDS: LORazepam 0.5 MG TAB PO PRN (13:04)
--- NOTE | 2021-07-15 14:45 | P.PN ---
Subjective Progress Note Date: 07/15/21 Principal diagnosis: Acute subarachnoid hemorrhage with Metastatic disease and elevated carcinoembryonic antigen This is a very pleasant 80-year-old male patient who follows with Dr. Garcia as his primary care provider. He has a history of atrial fibrillation anticoagulated with warfarin, BPH, recent lower back pain was following with a chiropractor without much improvement. On he had a CAT scan of the chest done in the outpatient setting for his worsening shortness of breath. He was found to have a left upper lobe pleural-based mass suspicious for malignancy. This is measuring 2.3 x 2.0. There were also small sub-3 mm pulmonary nodules in the left lower lobe. Right lung is clear. No greater than 1 cm hilar or mediastinal lymph nodes present. There were also findings compatible with metastatic disease to the liver as well as the thoracic segments. Difficult to exclude a left adrenal metastatic metastasis as well. A follow-up outpatient computed tomography scan of the abdomen was performed on 07/08/2021 that revealed small suspicious areas of mural thickening noted within adjacent lymph node or 2 involving the mid descending colon. Metastatic disease to the liver. Abnormal bony lucencies suspicious for metastatic disease to the distal thoracic spine, lumbar spine and sacrum pelvis and proximal femoral. Noted nodule of the left lung as well. Based on these findings he was referred to oncology and was seen in the office yesterday but was referred here to the emergency room for extreme weakness hypotension and hypoxemia. No PET scan done yet. No biopsies have been obtained yet. He was hypoxic and a CT angiogram ruled out pulmonary embolism. He is currently seen in the emergency room. He is currently resting fairly comfortable on the stretcher. Awake and alert in no acute distress. He is requiring 4 L nasal cannula to maintain O2 saturation in the low 90s. He is quite weak. Quite fatigued. He has had at least a 15 pound weight loss in the past several months. He has had ongoing issues with low back pain. White count 10.6. Hemoglobin 7.0. Initial INR 7.2. He did receive vitamin K 5 mg 1. Current INR 1.29. Platelets 233. Sodium 136. Potassium 4.5. Creatinine 0.97. Glucose 182. AST 44. ALT 20. Alk phos 276. Troponin negative 1. ProBNP 1600. Calcium 9.2. Coronavirus not detected. He's received 500 mL of fluid resuscitation. Currently on 0.9 normal sinus 75 ML's per hour. He was initiated on cefepime. The patient is seen today 07/14/2021 in follow-up on the oncology unit. He is currently resting in bed. He is having more episodes of confusion. He is maintaining O2 saturation in the mid 90s on 6 L/m per nasal cannula. Afebrile. Hemodynamically stable. White count 13.1. Hemoglobin 7.1. Sodium 137. Potassium 4.0. Creatinine 0.73. Glucose 163. AST 41. ALT 16. Alk phos 35. Total protein 5.4. Albumin 2.9. Pro-calcitonin 0.28. Stool for occult blood positive. Blood culture reveals no growth to date. MRI of the brain results are pending. Bone scan results are pending. He is currently on cefepime. 2 units of packed red blood cells were ordered per medicine. Warfarin remains on hold for possible liver biopsy in follow-up on 07/17/2021. CEA level 4286. Pro-calcitonin 0.28. Patient was reevaluated today on 07/15/2021, at 4 AM, the rapid response team was called to see the patient, and the patient was found to have worsening mental status, worsening pulmonary status, and he was minimally responsive. O2 saturation was 71% on room air, patient was in atrial fibrillation with RVR of 144. He was placed on a nonrebreather mask, transferred to the ICU, and a pparently his MRI the day earlier did show evidence of subarachnoid hemorrhage. Family was approached by oncology about possibly transferring the patient to [facility] or consider comfort care measures/hospice. Family is yet undecided, however the patient is presently DO NOT RESUSCITATE CODE STATUS. In the meantime I saw him in the ICU he seems quite comfortable, in no distress. Patient is on few liters nasal cannula, and his O2 saturation is ranging between 89-94%. He is hemodynamically stable. And he seems to be quite appropriate. Sister is at bedside. CBC count today is 18.3 hemoglobin is 7.8. ABG earlier showed a pO2 of 73 pCO2 of 30 0 pH of 7.37. Bicarb is down to 14. BUN is 26 creatinine 0.79. Carcinoembryonic antigen is 4286 and his CA 199 is over 10,000. Objective - Vital Signs Vital signs: Vital Signs Temp 98.4 F 07/15/21 08:00 Pulse 101 H 07/15/21 12:00 Resp 12 07/15/21 12:00 BP 106/61 07/15/21 12:00 Pulse Ox 89 L 07/15/21 12:00 Intake & Output 07/14/21 07/15/21 07/15/21 18:59 06:59 18:59 Intake Total 1310 500 450 Output Total 245 215 Balance 1310 255 235 Intake: IV 500 450 Sodium Chloride 0.9% 500 500 450 ml 500 ml @ 999 mls/hr IV .Q31M [facility] Rx#:[id number] Intake, IV Titration 1000 Amount Cefepime 2 gm In Sodium 100 Chloride 0.9% 100 ml @ 25 mls/hr IVPB Q8H [facility] Rx#: [id number] Sodium Chloride 0.9% 1, 900 000 ml @ 75 mls/hr IV . [id number] [facility] Rx#:[id number] Blood Product 310 Rc As-1 Unit 310 [id number] Output: Urine 245 215 Other: Voiding Method Indwelling Catheter Indwelling Catheter # Voids 1 1 - Exam GENERAL EXAM: Revealed 80-year-old white male in no distress. On 6 L nasal cannula. HEAD: Normocephalic. EENT: PERRLA, EOMI, nonicteric, no neck masses, no JVD, no stridor. NECK: No masses, no JVD. CHEST: No chest wall deformity. LUNGS: Fine crackles at the bases bilaterally. CVS: S1 and S2 normal with no audible murmur, regular rhythm. ABDOMEN: No hepatosplenomegaly, normal bowel sounds, no guarding or rigidity. SPINE: No scoliosis or deformity SKIN: No rashes CENTRAL NERVOUS SYSTEM: Alert and oriented 3, no gross focal deficits. EXTREMITIES: No clubbing edema or cyanosis. - Labs CBC & Chem 7: 07/15/21 04:15 07/15/21 04:19 Labs: Abnormal Lab Results - Last 24 Hours (Table) 07/13/21 07/14/21 07/15/21 Range/Units 11:25 19:52 04:12 WBC 12.3 H (3.8-10.6) k/uL RBC 2.60 L (4.30-5.90) m/uL Hgb 7.6 L (13.0-17.5) gm/dL Hct 23.5 L (39.0-53.0) % RDW 18.1 H (11.5-15.5) % Neutrophils # 9.8 H (1.3-7.7) k/uL Neutrophils # (Manual) (1.3-7.7) k/uL Lymphocytes # (Manual) (1.0-4.8) k/uL Nucleated RBCs (0-0) /100 WBC APTT (22.0-30.0) sec ABG pCO2 (35-45) mmHg ABG pO2 (83-108) mmHg ABG HCO3 (21-25) mmol/L ABG Total CO2 (19-24) mmol/L Chloride (98-107) mmol/L Carbon Dioxide (22-30) mmol/L BUN (9-20) mg/dL Glucose (74-99) mg/dL POC Glucose (mg/dL) 148 H (75-99) mg/dL Plasma Lactic Acid Chao (0.7-2.0) mmol/L AST (17-59) U/L Alkaline Phosphatase (38-126) U/L Total Protein (6.3-8.2) g/dL Albumin (3.5-5.0) g/dL Crossmatch See Detail 07/15/21 07/15/21 07/15/21 Range/Units 04:15 04:15 04:15 WBC 18.3 H (3.8-10.6) k/uL RBC 2.70 L (4.30-5.90) m/uL Hgb 7.8 L (13.0-17.5) gm/dL Hct 24.7 L (39.0-53.0) % RDW 19.0 H (11.5-15.5) % Neutrophils # (1.3-7.7) k/uL Neutrophils # (Manual) 12.20 H (1.3-7.7) k/uL Lymphocytes # (Manual) 5.31 H (1.0-4.8) k/uL Nucleated RBCs 3 H (0-0) /100 WBC APTT 21.0 L (22.0-30.0) sec ABG pCO2 (35-45) mmHg ABG pO2 (83-108) mmHg ABG HCO3 (21-25) mmol/L ABG Total CO2 (19-24) mmol/L Chloride (98-107) mmol/L Carbon Dioxide (22-30) mmol/L BUN (9-20) mg/dL Glucose (74-99) mg/dL POC Glucose (mg/dL) (75-99) mg/dL Plasma Lactic Acid Chao 7.5 H* (0.7-2.0) mmol/L AST (17-59) U/L Alkaline Phosphatase (38-126) U/L Total Protein (6.3-8.2) g/dL Albumin (3.5-5.0) g/dL Crossmatch 07/15/21 07/15/21 07/15/21 Range/Units 04:19 04:45 05:01 WBC (3.8-10.6) k/uL RBC (4.30-5.90) m/uL Hgb (13.0-17.5) gm/dL Hct (39.0-53.0) % RDW (11.5-15.5) % Neutrophils # (1.3-7.7) k/uL Neutrophils # (Manual) (1.3-7.7) k/uL Lymphocytes # (Manual) (1.0-4.8) k/uL Nucleated RBCs (0-0) /100 WBC APTT (22.0-30.0) sec ABG pCO2 30 L (35-45) mmHg ABG pO2 73 L (83-108) mmHg ABG HCO3 17 L (21-25) mmol/L ABG Total CO2 18 L (19-24) mmol/L Chloride 113 H (98-107) mmol/L Carbon Dioxide 14 L (22-30) mmol/L BUN 26 H (9-20) mg/dL Glucose 201 H (74-99) mg/dL POC Glucose (mg/dL) 175 H (75-99) mg/dL Plasma Lactic Acid Chao (0.7-2.0) mmol/L AST 62 H (17-59) U/L Alkaline Phosphatase 379 H (38-126) U/L Total Protein 5.0 L (6.3-8.2) g/dL Albumin 2.5 L (3.5-5.0) g/dL Crossmatch Microbiology - Last 24 Hours (Table) 07/12/21 17:00 Blood Culture - Preliminary Blood No Growth after 48 hours 07/12/21 16:45 Blood Culture - Preliminary Blood No Growth after 48 hours Assessment and Plan Plan: Impression: 1 metastatic disease exact primary is not clear, looks like GI in nature unless for otherwise, although the possibility of pancreatic malignancy is not entirely ruled out. 2 acute subarachnoid hemorrhage 3 Acute hypoxic respiratory failure suspect interstitial pneumonia, possibly aspiration pneumonia 4 Acute anemia, possible GI bleed, current hemoglobin 7.1, stool for occult blood positive. 5 Acute back pain suspect secondary to metastatic disease 6 Remote history of chronic tobacco dependence however quit back in the 7 Paroxysmal atrial fibrillation, anticoagulated with warfarin, presently on hold because of his GI bleeding and anemia. 8 BPH Accommodation: I would recommend at this point comfort care measures, apparently the family has been approached by oncology regarding his overall condition, and considering the extensiveness of his disease, I believe no reason to go with invasive diagnostic studies, best to proceed with comfort care measures if family seems to be agreeable. Prognosis is extremely poor. Time with Patient: Less than 30
[2021-07-15] MEDS ORDERED: DEXMEDETOMIDINE/0.9% NACL(PMX) 400 MCG in EMPTY BAG 1 BAG IV SCH (15:30)
[2021-07-15 18:25] LABS: Glucose,Whole Blood 122 mg/dL (75-99)
[2021-07-16 04:48] LABS: Anisocytosis Slight; Basophils % (A) 0 %; Eosinophils # (A) 0.1 k/uL (0-0.7); Eosinophils % (A) 1 %; HCT 20.4 % (39.0-53.0); Hypochromasia Slight; Lymphocytes # (A) 1.1 k/uL (1.0-4.8); Lymphocytes % (A) 10 %; MCH 29.8 pg (25.0-35.0); MCHC 33.1 g/dL (31.0-37.0); MCV 90.1 fL (80.0-100.0); Macrocytosis Slight; Mean Platelet Volume 8.8; Monocytes # (A) 0.5 k/uL (0-1.0); Monocytes % (A) 5 %; Neutrophils # (A) 8.8 k/uL (1.3-7.7); Neutrophils % (A) 82 %; Platelet Count 112 k/uL (150-450); Poikilocytosis Marked; RBC 2.26 m/uL (4.30-5.90); RDW 19.8 % (11.5-15.5); WBC 10.7 k/uL (3.8-10.6)
[2021-07-16 04:52] LABS: HGB 6.7 gm/dL (13.0-17.5)
[2021-07-16 04:53] LABS: African American GFR (CKD) >90 (>60 ml/min/1.73 sqM); Anion Gap 5 mmol/L; Blood Urea Nitrogen 25 mg/dL (9-20); Calcium 9.1 mg/dL (8.4-10.2); Carbon Dioxide 19 mmol/L (22-30); Chloride 113 mmol/L (98-107); Glucose 115 mg/dL (74-99); Non-African American GFR(CKD) 86 (>60 ml/min/1.73 sqM); Potassium 4.2 mmol/L (3.5-5.1); Sodium 137 mmol/L (137-145)
[2021-07-16 08:22] VITALS: TEMP 98
[2021-07-16] MEDS: TAMSULOSIN 0.4 MG CAP.ER.24H PO SCH (09:33)
[2021-07-16] MEDS: PANTOPRAZOLE 40 MG/10 ML VIAL IVP SCH (09:33)
[2021-07-16] MEDS: CEFEPIME 2 GM in SODIUM CHLORIDE 0.9% 100 ML IVPB SCH (09:33)
[2021-07-16] MEDS: METOPROLOL SUCCINATE (ER) 25 MG TAB.ER.24H PO SCH (09:33)
[2021-07-16] MEDS: BACLOFEN 10 MG TAB PO SCH (09:33)
[2021-07-16] MEDS: FERROUS SULFATE 325 MG TAB PO SCH (09:33)
[2021-07-16] MEDS: SODIUM CHLORIDE 0.9% 1,000 ML IV SCH (09:34)
--- NOTE | 2021-07-16 10:47 | P.PN ---
Subjective Progress Note Date: 07/16/21 80 years old a clinic patient of mine with past medical history of atrial fibrillation anticoagulated with Coumadin, BPH, prediabetes was seen in the clinic 2 weeks ago for the increased [id number] pound loss of weight and shortness of breath. Patient underwent workup including blood work, chest x-ray which was concerning for elevated liver enzymes. CXR was normal. Patient was complaining of significant left shoulder pain associated with chest pain associated with shortness of breath. CT chest, abdomen and pelvis was obtained as outpatient. CT chest was concerning for a left upper lobe pleural-based mass suspicion for malignancy with metastatic disease to the liver as well as visu alized thoracic segment. 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 Once insurance approved CT abd, CT abdomen and pelvis showed suspicious area of mural thickening within the LN involving the mid ascending colon which was suspicious for neoplasm. Metastatic disease to the liver, distal thoracic spine and lumbar spine and sacrum pelvis and proximal femoral was noted. Patient was scheduled for outpatient evaluation with oncology. Tumor markers were ordered and were pending. Over the past few days patient has become increasingly confused, short of breath, weak. at bedside stated patient is unable to walk due to increased weakness. He was seen by oncology office yesterday and was noted to be desaturating in the low 80s and was sent to the ER for evaluation. CT angiogram was obtained in the ER was negative for pulmonary embolism, left upper lobe mass 2.5 cm in size and multiple osteosclerotic and osteolytic changes were needed noted in the thoracic spine. White is in the ER temp of 98.4 tachycardic 110, respiratory rate 18 blood pressure 104/58 oxygen saturation 94% on 4 L. Labs are reviewed patient has leukocytosis of 14.4 hemoglobin 9.7 platelet 325 in and was noted to be 7.2, sodium 136 bicarb 20 1B UN 48 creatinine 0.93 alkaline phosphatase was elevated at 276 proBNP was 1600. Repeat labs this morning is suggestive of a drop in hemoglobin to 7 INR has improved to 1.9 with vitamin K given in the ER yesterday and i anion gap is increased to 17 UA was negative for infection stool occult was positive. CT chest was concerning for a left upper lobe pleural-based mass suspicion for malignancy with metastatic disease to the liver as well as visualized thoracic segment. 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 CT abdomen and pelvis was suggestive of response to suspicious area of mural thickening within the descending colon to involving the mid ascending colon which was suspicious for neoplasm. Metastatic disease to the liver, distal thoracic spine and lumbar spine and sacrum pelvis and proximal femoral was noted CT angiogram was obtained in the ER was negative for pulmonary embolism, left upper lobe mass 2.5 cm in size and multiple osteosclerotic and osteolytic changes were needed noted in the thoracic spine. 07/14: Patient is seen today on the Oncology Unit, Patient's is at bedside. She is concerned that the patient is unable to walk and get to the bathroom. PT and OT consults will be added. Patient is awake and more alert today. His pain control is improved. He is having some visual hallucinations. Patient states he has very minimal cough and denies shortness of breath. He is on oxygen at 6L n/c with PO 95%. He has been afebrile, heart rate 118, blood pressure 115/64. Repeat hemoglobin is 7.1 after 1 unit of packed RBCs and another unit will be ordered today. Alkaline phosphatase 235. Protein electrophoresis low at 4.9. Albumin electrophoresis low at 2.75. Gammaglobulins low at 0.54 and alpha-2 globulins low. No monoclonal paraprotein recognized. CA 199 is greater than 10,000. CEA 4286. Pro-calcitonin 0.28. Stool for occult blood positive. He has been seen by oncology with plan for interventional radiology for liver biopsy. MRI of the brain revealed subarachnoid hemorrhage. Nonspecific white matter demyelination. No enhancing mass within the brain. Bone scan reveals metastatic disease including the bilateral upper and lower extremities rib spines shoulder calvarium, pelvis and sternum. Patient has been seen by Dr. Jessica and patient's last colonoscopy [facility] was incomplete could not go further than the proximal descending colon due to tight angulation. No plan for colonoscopy at this point and will follow as needed. Discussed with oncology and Dr. Garcia will be back to discuss reports and plan with the patient and his . 07/15: Patient was evaluated in the intensive care unit. Apparently in the night and a team was called as patient was found unresponsive. Improved with oxygen therapy and was transferred to intensive care. This morning patient is alert to person and situation. Chest x-ray showed mild pulmonary interstitial pneumonia, new compared to recent exam. White blood cells increased at 18.3, hemoglobin 7.8, INR 1.1, BUN 26, creatinine 0.79 alk phos 379. was at bedside this morning and did have a discussion about prognosis. Patient is afebrile, pulse 96, blood pressure 106/53, pulse ox 94% on 13 L high flow nasal cannula. He continues on cefepime IV. Pain is under control with [place] and Dilaudid when necessary. 07/16: Patient seen this morning resting in bed, appears in no distress and reports mild pain. He continues on 13 L high flow nasal cannula. Hemoglobin was down to 6.7 this morning and patient did receive 1 unit of packed red blood cells. White blood cells 10.7, BUN 25, creatinine 0.8. Patient is sinus rhythm on telemetry, heart rate 99, patient is afebrile, blood pressure 118/66, pulse ox currently mid 90s. Family to have discussion likely with oncology to determine plan of care. ROS Constitutional: Denies chills, Denies fever, endorses lethargy, endorses miguelito ise, endorses poor appetite, endorses weakness, endorses weight loss Eyes: denies decreased vision, denies diplopia, denies discharge, denies pain Ears: deny: decreased hearing Ears, nose, mouth and throat: Denies dental pain, Denies headache, Denies nasal discharge Cardiovascular: Denies chest pain, Denies decreased exercise tolerance, Denies edema, Denies high blood pressure, Denies irregular heart beat, Denies palpitations, Denies paroxysmal nocturnal dyspnea, Denies rapid heart beat, Denies shortness of breath Respiratory: Denies congestion, Denies cough, Denies cough with sputum, denies dyspnea Denies home oxygen, Denies wheezing Gastrointestinal: Denies abdominal pain, Denies change in bowel habits, Denies coffee ground emesis, Denies early satiety, Denies heartburn, Denies hematemesis, Denies hematochezia, Denies loss of appetite, Denies nausea, Denies vomiting Genitourinary: Denies dysuria, Denies flank pain, Denies kidney stones, Denies menorrhagia, Denies urgency, Denies urinary frequency Musculoskeletal: Denies gait dysfunction, Denies limitation of motion, Denies morning stiffness, Denies muscle cramps. Generalized pain. Integumentary: Denies rash, Denies wounds, Denies brittle nails, Denies change in hair/nails, Denies darkening of skin Neurological: Denies balance difficulties, Denies change in speech, Denies double vision, reports gait dysfunction, Denies loss of vision, Denies motor disturbance, Denies numbness, Denies paralysis, Denies paresthesias, Denies seizures Psychiatric: increased anxiety, Denies depression area and reports hallucinations. Endocrine: Denies excessive sweating, Denies excessive thirst, Denies high blood sugars, Denies palpitations Hematologic/Lymphatic: Denies easy bruising, Denies lymphadenopathy Physical exam - Constitutional General appearance: cooperative, no apparent distress. Eyes: anicteric sclerae, PERRLA, normal appearance ENT: hearing grossly normal - Neck Neck: no lymphadenopathy, normal ROM, no other, no rigidity, no stridor, no thyromegaly - Respiratory Respiratory: bilateral: Diminished with crackles at bases - Cardiovascular Rhythm: Regular, chief deputy sheriff sinus rhythm Heart sounds: normal: S1, S2 Abnormal Heart Sounds: no systolic murmur, no diastolic murmur, no rub, no S3 Gallop, no S4 Gallop, no click, no other - Gastrointestinal General gastrointestinal: normal bowel sounds, soft nontender - Integumentary Integumentary: no rash - Neurologic Neurologic: No motor or sensory deficits - Musculoskeletal Musculoskeletal: Increasingly weak, unable to ambulate - Psychiatric Psychiatric: A&O to person and place, appropriate affect Assessment and plan # acute metabolic encephalopathy secondary to subarachnoid bleed. Seizure precautions. # generalized weakness with increased ability secondary to metastasis. is unable to take care of patient at home. Patient may benefit from subacute rehab. PTOT for assessment pending plan of care. # acute hypoxic respiratory failure PE ruled out. No consolidations noted on CT chest. 2.5 cm left-sided pleural lesion. Pro-calcitonin elevated at 0.28, continue cefepime 2 g every 8 hours and pulmonary consult appreciated. # metastatic cancer with primary unknown most likely is secondary to colon cancer, possible pulmonary as primary. Consult with oncology appreciated. # acute anemia possible GI bleed, monitor hemoglobin, consult with Dr. Jessica appreciated. No plan for endoscopy, transfuse second unit of packed RBCs, continue to monitor CBC # Paroxysmal atrial fibrillation on Coumadin and metoprolol. Coumadin held because of concern for GI bleed. INR 7.2 on admission status was 5 mg vitamin K # coagulopathy secondary to cancer and Coumadin status post vitamin K 1 dose INR 1.1 now # acute back pain secondary to metastasis. diaudid 1 mg every 3 hours with [place] 5 every 6 hours. # prediabetes diabetic diet # Multiple liver metastasis. Consult for possible biopsy # CODE STATUS discussed with at bedside and patient. Patient was changed to DO NOT RESUSCITATE. # DVT prophylaxis with SCD as patient has ongoing GI bleed #GI prophylaxis with Protonix 40 twice a day prognosis guarded. DISCHARGE PLAN: To be determined pending course. Impression and plan of care have been directed as dictated by the signing physician. Kaylee Delgado nurse practitioner acting as scribe for signing physician. Objective - Vital Signs Vital signs: Vital Signs Temp 98 F 07/16/21 08:21 Pulse 94 07/16/21 10:00 Resp 12 07/16/21 10:00 BP 118/66 07/16/21 10:00 Pulse Ox 99 07/16/21 10:00 Intake & Output 07/15/21 07/16/21 07/16/21 18:59 06:59 18:59 Intake Total 851.836 495 350 Output Total 500 576 145 Balance 351.836 -81 205 Weight 84 kg Intake: IV 840 15 40 Sodium Chloride 0.9% 1, 40 000 ml @ 75 mls/hr IV . [id number] [facility] Rx#:[id number] Sodium Chloride 0.9% 500 840 15 ml 500 ml @ 999 mls/hr IV .Q31M [facility] Rx#:[id number] Intake, IV Titration 11.836 0 Amount Dexmedetomidine/0.9% NaCl 11.836 0 (Pmx) 400 mcg In Empty Bag 1 bag @ 0.2 MCG/KG/HR 4.105 mls/hr IV .Q24H [facility] Rx#:[id number] Oral 480 Blood Product 0 310 Rc Irr As1 Unit 0 310 [id number] Output: Urine 500 576 145 Other: Voiding Method Indwelling Catheter Indwelling Catheter Indwelling Catheter - Labs CBC & Chem 7: 07/16/21 04:17 07/16/21 04:17 Labs: Abnormal Lab Results - Last 24 Hours (Table) 07/13/21 07/15/21 07/16/21 Range/Units 11:25 18:23 04:17 WBC 10.7 H (3.8-10.6) k/uL RBC 2.26 L (4.30-5.90) m/uL Hgb 6.7 L* (13.0-17.5) gm/dL Hct 20.4 L (39.0-53.0) % RDW 19.8 H (11.5-15.5) % Plt Count 112 L (150-450) k/uL Neutrophils # 8.8 H (1.3-7.7) k/uL Chloride (98-107) mmol/L Carbon Dioxide (22-30) mmol/L BUN (9-20) mg/dL Glucose (74-99) mg/dL POC Glucose (mg/dL) 122 H (75-99) mg/dL Crossmatch See Detail 07/16/21 Range/Units 04:17 WBC (3.8-10.6) k/uL RBC (4.30-5.90) m/uL Hgb (13.0-17.5) gm/dL Hct (39.0-53.0) % RDW (11.5-15.5) % Plt Count (150-450) k/uL Neutrophils # (1.3-7.7) k/uL Chloride 113 H (98-107) mmol/L Carbon Dioxide 19 L (22-30) mmol/L BUN 25 H (9-20) mg/dL Glucose 115 H (74-99) mg/dL POC Glucose (mg/dL) (75-99) mg/dL Crossmatch Microbiology - Last 24 Hours (Table) 07/12/21 17:00 Blood Culture - Preliminary Blood No Growth after 72 hours 07/12/21 16:45 Blood Culture - Preliminary Blood No Growth after 72 hours
[2021-07-16 11:25] VITALS: BP 110/60; PULSE 92; RESP 11
[2021-07-16] MEDS: HYDROmorphone 0.5 MG/0.5 ML SYRINGE IVP PRN (11:53)
--- NOTE | 2021-07-17 14:45 | P.DS ---
Providers Date of admission: 07/12/21 18:57 Expected date of discharge: 07/16/21 Attending physician: Dominique Garcia MD Consults: 07/12/21 18:58 Consult Physician Routine Consulting Provider: Jessenia Blackwell Consult Reason/Comments: Lung mass, metastatic disease Do you want consulting provider notified?: Yes Consult Physician Routine Consulting Provider: Haile Nichole Consult Reason/Comments: Lung mass, metastatic disease Do you want consulting provider notified?: Already Contacted 07/13/21 13:28 Consult Physician Routine Consulting Provider: Rachele Jessica Consult Reason/Comments: acute GI bleed Do you want consulting provider notified?: Yes Primary care physician: Dominique Garcia MD Hospital Course: 80 years old a clinic patient of mine with past medical history of atrial fibrillation anticoagulated with Coumadin, BPH, prediabetes was seen in the clinic 2 weeks ago for the increased [id number] pound loss of weight and shortness of breath. Patient underwent workup including blood work, chest x-ray which was concerning for elevated liver enzymes. CXR was normal. Patient was complaining of significant left shoulder pain associated with chest pain asso ciated with shortness of breath. CT chest, abdomen and pelvis was obtained as outpatient. CT chest was concerning for a left upper lobe pleural-based mass suspicion for malignancy with metastatic disease to the liver as well as visualized thoracic segment. 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 Once insurance approved CT abd, CT abdomen and pelvis showed suspicious area of mural thickening within the LN involving the mid ascending colon which was suspicious for neoplasm. Metastatic disease to the liver, distal thoracic spine and lumbar spine and sacrum pelvis and proximal femoral was noted. Patient was scheduled for outpatient evaluation with oncology. Tumor markers were ordered and were pending. Over the past few days patient has become increasingly confused, short of breat h, weak. at bedside stated patient is unable to walk due to increased weakness. He was seen by oncology office yesterday and was noted to be desaturating in the low 80s and was sent to the ER for evaluation. CT angiogram was obtained in the ER was negative for pulmonary embolism, left upper lobe mass 2.5 cm in size and multiple osteosclerotic and osteolytic changes were needed noted in the thoracic spine. White is in the ER temp of 98.4 tachycardic 110, respiratory rate 18 blood pressure 104/58 oxygen saturation 94% on 4 L. Labs are reviewed patient has leukocytosis of 14.4 hemoglobin 9.7 platelet 325 in and was noted to be 7.2, sodium 136 bicarb 20 1B UN 48 creatinine 0.93 alkaline phosphatase was elevated at 276 proBNP was 1600. Repeat labs this morning is suggestive of a drop in hemoglobin to 7 INR has improved to 1.9 with vitamin K given in the ER yesterday and i anion gap is increased to 17 UA was negative for infection stool occult was positive. CT chest was concerning for a left upper lobe pleural-based mass suspicion for malignancy with metastatic disease to the liver as well as visualized thoracic segment. 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 CT abdomen and pelvis was suggestive of response to suspicious area of mural thickening within the descending colon to involving the mid ascending colon which was suspicious for neoplasm. Metastatic disease to the liver, distal thoracic spine and lumbar spine and sacrum pelvis and proximal femoral was noted CT angiogram was obtained in the ER was negative for pulmonary embolism, left upper lobe mass 2.5 cm in size and multiple osteosclerotic and osteolytic changes were needed noted in the thoracic spine. 07/14: Patient is seen today on the Oncology Unit, Patient's is at bed side. She is concerned that the patient is unable to walk and get to the bathroom. PT and OT consults will be added. Patient is awake and more alert today. His pain control is improved. He is having some visual hallucinations. Patient states he has very minimal cough and denies shortness of breath. He is on oxygen at 6L n/c with PO 95%. He has been afebrile, heart rate 118, blood pressure 115/64. Repeat hemoglobin is 7.1 after 1 unit of packed RBCs and another unit will be ordered today. Alkaline phosphatase 235. Protein electrophoresis low at 4.9. Albumin electrophoresis low at 2.75. Gammaglobulins low at 0.54 and alpha-2 globulins low. No monoclonal paraprotein recognized. CA 199 is greater than 10,000. CEA 4286. Pro-calcitonin 0.28. Stool for occult blood positive. He has been seen by oncology with plan for interventional radiology for liver biopsy. MRI of the brain revealed subarachnoid hemorrhage. Nonspecific white matter demyelination. No enhancing mass within the brain. Bone scan reveals metastatic disease including the bilateral upper and lower extremities rib spines shoulder calvarium, pelvis and sternum. Patient has been seen by Dr. Jessica and patient's last colonoscopy [facility] was incomplete could not go further than the proximal descending colon due to tight angulation. No plan for colonoscopy at this point and will follow as needed. Discussed with oncology and Dr. Garcia will be back to discuss reports and plan with the patient and his . 07/15: Patient was evaluated in the intensive care unit. Apparently in the nigh t and a team was called as patient was found unresponsive. Improved with oxygen therapy and was transferred to intensive care. This morning patient is alert to person and situation. Chest x-ray showed mild pulmonary interstitial pneumonia, new compared to recent exam. White blood cells increased at 18.3, hemoglobin 7.8, INR 1.1, BUN 26, creatinine 0.79 alk phos 379. was at bedside this m orning and did have a discussion about prognosis. Patient is afebrile, pulse 96, blood pressure 106/53, pulse ox 94% on 13 L high flow nasal cannula. He continues on cefepime IV. Pain is under control with [place] and Dilaudid when necessary. 07/16: Patient seen this morning resting in bed, appears in no distress and reports mild pain. He continues on 13 L high flow nasal cannula. Hemoglobin was down to 6.7 this morning and patient did receive 1 unit of packed red blood cells. White blood cells 10.7, BUN 25, creatinine 0.8. Patient is sinus rhythm on telemetry, heart rate 99, patient is afebrile, blood pressure 118/66, pulse ox currently mid 90s. Family to have discussion likely with oncology to determine plan of care. Patient on the afternoon of 07/16. Please see nursing documentation for details. Assessment and plan # acute metabolic encephalopathy secondary to subarachnoid bleed. # generalized weakness with increased ability secondary to metastasis. # acute hypoxic respiratory failure PE ruled out. 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 # prediabetes # Multiple liver metastasis. Impression and plan of care have been directed as dictated by the signing physician. Kaylee Delgado nurse practitioner acting as scribe for signing physician. Plan - Discharge Summary Discharge Rx Participant: No New Discharge Prescriptions: No Action Ferrous Sulfate [Feosol] 325 mg PO DAILY Warfarin [Coumadin] 2 mg PO SUTUTHSA Metoprolol Succinate [Toprol XL] 25 mg PO DAILY Baclofen [Lioresal] 10 mg PO TID Warfarin [Coumadin] 5 mg PO DAILY Tamsulosin [Flomax] 0.4 mg PO BID Furosemide [Lasix] 40 mg PO DAILY Discharge Medication List Baclofen [Lioresal] 10 mg PO TID 07/12/21 [History] Ferrous Sulfate [Feosol] 325 mg PO DAILY 07/12/21 [History] Furosemide [Lasix] 40 mg PO DAILY 07/12/21 [History] Metoprolol Succinate [Toprol XL] 25 mg PO DAILY 07/12/21 [History] Tamsulosin [Flomax] 0.4 mg PO BID 07/12/21 [History] Warfarin [Coumadin] 2 mg PO SUTUTHSA 07/12/21 [History] Warfarin [Coumadin] 5 mg PO DAILY 07/12/21 [History] Follow up Appointment(s)/Referral(s): Dominique Garcia MD [Primary Care Provider] - 1-2 days Discharge Disposition: - Preliminary Cause of Preliminary Cause of : metastatic cancer with primary unknown
== END 2021-07-16 13:56 | disposition expired | DRG 377 ==
LOC: EC 15:58 → 5NMEDONC 18:57 → 2SICU 07-15 05:33
PROVIDERS: ADMIT Internal Medicine; ATTEND Internal Medicine
PROC: 30233N1 Transfusion of Nonautologous Red Blood Cells into Peripheral Vein, Percutaneous Approach (ICD-10-PCS; principal; 2021-07-14)
DX: K92.2 Gastrointestinal hemorrhage, unspecified (principal); G93.41 Metabolic encephalopathy; J96.01 Acute respiratory failure with hypoxia; I60.9 Nontraumatic subarachnoid hemorrhage, unspecified; J69.0 Pneumonitis due to inhalation of food and vomit; C79.72 Secondary malignant neoplasm of left adrenal gland; C79.51 Secondary malignant neoplasm of bone; C78.7 Secondary malignant neoplasm of liver and intrahepatic bile duct; C78.00 Secondary malignant neoplasm of unspecified lung; C78.5 Secondary malignant neoplasm of large intestine and rectum; D68.9 Coagulation defect, unspecified; E87.2 Acidosis; J84.9 Interstitial pulmonary disease, unspecified; D62 Acute posthemorrhagic anemia; Z20.822 Contact with and (suspected) exposure to COVID-19; Z51.5 Encounter for palliative care; Z66 Do not resuscitate; D72.829 Elevated white blood cell count, unspecified; E86.0 Dehydration; I95.9 Hypotension, unspecified; R91.8 Other nonspecific abnormal finding of lung field; N40.0 Benign prostatic hyperplasia without lower urinary tract symptoms; C80.1 Malignant (primary) neoplasm, unspecified; Z85.118 Personal history of other malignant neoplasm of bronchus and lung; M25.512 Pain in left shoulder; I48.0 Paroxysmal atrial fibrillation; T45.515A Adverse effect of anticoagulants, initial encounter; G89.3 Neoplasm related pain (acute) (chronic); M54.9 Dorsalgia, unspecified; R53.1 Weakness; R00.0 Tachycardia, unspecified; R73.03 Prediabetes; R74.8 Abnormal levels of other serum enzymes; H91.90 Unspecified hearing loss, unspecified ear; Z87.891 Personal history of nicotine dependence; Z79.01 Long term (current) use of anticoagulants; Z79.899 Other long term (current) drug therapy
CPT/HCPCS: 36415; 36600; 70553; 71045; 71275; 78306; 80048; 80053; 81001; 82105; 82272; 82378; 82805; 83605; 83735; 83880; 84145; 84153; 84154; 84165; 84484; 85025; 85610; 85730; 86301; 86850; 86900; 86901; 86920; 87040; 87635; 93005; 96360; 99291